=== PATIENT | male | born 1945 | race Caucasian/White ===

== ENCOUNTER 2019-09-09 07:35 | Outpatient (CLI) | payer MEDICARE, SELFPAY ==
[2019-09-09 07:55] LABS: Basophils Absolute Auto 0.1 K/mm3 (0.0-0.1); Basophils Percent Auto 0.9 % (0.2-1.2); Eosinophils Absolute Auto 0.3 K/mm3 (0-0.3); Eosinophils Percent Auto 3.4 % (0-4.4); Hematocrit 50.8 % (42.0-52.0); Hemoglobin 16.5 g/dL (14.0-18.0); Immature Granulocyte Absolute 0.02 K/mm3 (0.00-0.031); Immature Granulocyte Percent A 0.2 % (0-0.5); Lymphocytes Absolute Auto 0.75 K/mm3 (0.9-3.2); Lymphocytes Percent Auto 8.9 % (18.3-44.2); Mean Corpuscular HGB Conc 32.5 g/dl (32-36); Mean Corpuscular Hemoglobin 29.9 pg (26-34); Mean Corpuscular Volume 92.2 fl (80-100); Mean Platelet Volume 10.8 fl (7.4-10.4); Monocytes Absolute Auto 0.8 K/mm3 (0.1-0.6); Monocytes Percent Auto 9.6 % (2.6-8.5); Neutrophils Absolute Auto 6.5 K/mm3 (1.3-6.7); Platelet Count Result 168 k/mm3 (150-375); Red Blood Count 5.51 M/mm3 (4.6-6.20); Red Cell Distribution Width 14.1 % (11.5-14.5); White Blood Count 8.4 K/mm3 (4.5-10.0)
[2019-09-09 08:07] LABS: Hemoglobin A1C 6.1 % (<5.7)
[2019-09-09 08:08] LABS: Alanine Aminotransferase 30 U/L (4-50); Alkaline Phosphatase 62 U/L (38-126); Aspartate Amino Transferase 30 U/L (17-59); Bilirubin,Total 0.5 mg/dL (0.2-1.3); Blood Urea Nitrogen 20 mg/dL (9-20); Carbon Dioxide 27 mmol/L (22-30); Chloride 108 mmol/L (98-107); Cholesterol 105 mg/dL (0-200); Estimated Glomerular Filt Rate > 60; Glucose 103 mg/dL (75-110); HDL Direct 32 mg/dL; Potassium 3.7 mmol/L (3.4-5.0); Sodium 140 mmol/L (137-145); Triglycerides 59 mg/dL (<150)
[2019-09-09 08:19] LABS: LDL Cholesterol Direct 66 mg/dL
[2019-09-09 09:28] LABS: Free T4 Free Thyroxine 1.18 ng/mL (0.78-2.19)
== END 2019-09-09 07:36 | disposition home or self-care (01) ==
PROVIDERS: PCP Family Medicine; Visit Provider Family Medicine
DX: R53.83 Other fatigue (principal); J44.1 Chronic obstructive pulmonary disease with (acute) exacerbation; I10 Essential (primary) hypertension; I21.9 Acute myocardial infarction, unspecified; Z79.899 Other long term (current) drug therapy; Z85.51 Personal history of malignant neoplasm of bladder; Z83.3 Family history of diabetes mellitus
CPT/HCPCS: 36415; 80053; 80061; 82607; 83036; 84439; 84443; 85025

== ENCOUNTER 2019-11-25 10:01 | Outpatient (CLI) | payer MEDICARE, SELFPAY ==
--- NOTE | ~2019-11-25 | XR_ITS ---
EXAMINATION: XR hip BI wo pelvis, XR lumbar spine 2-3V DATE: 11/25/2019 11:42 INDICATION: Low back pain and bilateral hip pain TECHNIQUE: 1. Anteroposterior, lateral and cone-down lateral lumbosacral views of the lumbar spine were obtained . 2. Anteroposterior and frog-leg lateral views of the left hip and anteroposterior and frog-leg latera l views of the right hip were obtained. COMPARISON: CT abdomen and pelvis dated 06/07/2017 FINDINGS: Lumbar spine: 7 mm anterolisthesis L4 on L5 which is increased since the prior study. Associated severe bilateral f acet osteoarthritis at L4-L5. Vertebral body heights are normal. Mild disc height loss at L4-L5. Ther e are multiple tiny calcified nodules at the bilateral lung bases. Bilateral hips: Bone alignment is normal. No fracture or suspected avascular necrosis. Mild bilateral hip osteoarthr itis. Sacrum and bilateral sacroiliac joints are normal. IMPRESSION: 1. Grade 1 anterolisthesis L4 on L5 with mild associated disc height loss and severe bilateral facet osteoarthritis. 2. Mild bilateral hip osteoarthritis. Reviewed, dictated and finalized at location A. IMPRESSION: 1. Grade 1 anterolisthesis L4 on L5 with mild associated disc height loss and s evere bilateral facet osteoarthritis. 2. Mild bilateral hip osteoarthritis.
[2019-11-25 11:03] LABS: Rheumatoid Factor < 8.6 IU/ML (<12)
[2019-11-25 12:02] LABS: Vitamin D 25 Hydroxy 53.7 ng/mL
[2019-11-30 13:58] LABS: Anti Nuclear Antibody Pattern Nuclear, Speckled; Anti Nuclear Antibody Titer 1:40 (Negative)
== END 2019-11-25 10:02 | disposition home or self-care (01) ==
PROVIDERS: Visit Provider Family Medicine
DX: M16.0 Bilateral primary osteoarthritis of hip (principal); E55.9 Vitamin D deficiency, unspecified
CPT/HCPCS: 36415; 72100; 73521; 82306; 86038; 86039; 86430

== ENCOUNTER 2019-11-26 12:51 | Outpatient (CLI) | payer MEDICARE, SELFPAY ==
--- NOTE | 2019-11-26 12:54 | ECG_ITS ---
Measurements Intervals [place] Rate: 63 P: 64 VT: 171 QRS: 3 QRSD: 90 T: 38 QT: 405 QTc: 417 Interpretive Statements SINUS RHYTHM DELAYED PRECORDIAL R/S TRANSITION BORDERLINE ECG Electronically Signed On 11-26-2019 16:05:48 CDT by Simone oCrral D.O.
[2019-11-26 14:00] LABS: Anion Gap 7 mmol/L (8-16); Blood Urea Nitrogen 18 mg/dL (9-20); Calcium 9.2 mg/dL (8.4-10.2); Carbon Dioxide 29 mmol/L (22-30); Chloride 105 mmol/L (98-107); Estimated Glomerular Filt Rate 60; Glucose 113 mg/dL (75-110); Potassium 3.3 mmol/L (3.4-5.0); Sodium 141 mmol/L (137-145)
== END 2019-11-26 12:52 | disposition home or self-care (01) ==
PROVIDERS: Anesthesiology; PCP Nurse Practitioner Family; Visit Provider Urology
DX: I10 Essential (primary) hypertension (principal)
CPT/HCPCS: 36415; 80048; 93005

== ENCOUNTER 2019-12-02 02:56 | Outpatient (CLI) | payer MEDICARE, SELFPAY ==
[2019-12-02 18:37] LABS: SARS-CoV-2 RNA PCR Negative
== END 2019-12-02 02:57 | disposition home or self-care (01) ==
LOC: ANHCOVIDDT 02:56
PROVIDERS: PCP Nurse Practitioner Family; Visit Provider Urology
DX: Z01.812 Encounter for preprocedural laboratory examination (principal); Z20.828 Contact with and (suspected) exposure to other viral communicable diseases
CPT/HCPCS: 87635; C9803; U0003

== ENCOUNTER 2019-12-04 00:48 | Day surgery (SDC) | payer MEDICARE, SELFPAY ==
[2019-11-25 16:08] VITALS: BMI 32.1
--- NOTE | ~2019-12-04 | XR_ITS ---
EXAMINATION: XR retrograde pyelogram LT DATE: 12/04/2019 15:10 INDICATION: Bladder cancer. TECHNIQUE: 82 intraoperative fluoroscopic views of the abdomen and pelvis were obtained. I was not pr esent. Fluoroscopy exposure time was 27 seconds. COMPARISON: CT abdomen and pelvis 06/07/2017 FINDINGS: There are stones in the bladder. The left-sided pyelogram is normal. IMPRESSION: 1. Bladder stones. Reviewed, dictated and finalized at location A. IMPRESSION: 1. Bladder stones.
--- NOTE | 2019-12-04 11:42 | WPDHPUPDATE1 ---
History and Physical Update Update Date/Time: 12/04/19 11:42 History and Physical has been reviewed, including an updated exam of the patient. There are NO changes in the patient's condition. Risks, benefits, and alternatives have been discussed and questions answered. Patient agrees to proceed with procedure.
--- NOTE | 2019-12-04 12:34 | WPDANESEPP ---
Anes - Eval Pre Procedure Procedure: Operation Date: 12/04/19 15:15 Proposed Procedures p Cystoscopy, Bilateral Retrograde Pyelogram - Corky Shoemaker MD s Trans Urethral Resection Bladder Tumor - Corky Shoemaker MD Date/Time: 12/04/19 12:34 Pre Op Diagnosis: Bladder Cancer Patient Data Age: 74 Gender: M Height: 5 ft 7 in Weight: 92.99 kg Allergies Allergy/AdvReac Type Severity Reaction Status Date / Time doxycycline Allergy Unknown Nausea Verified 11/25/19 15:57 levofloxacin Allergy Unknown Hives / Verified 11/25/19 15:57 Red Face Penicillins Allergy Unknown Unknown Verified 11/25/19 15:57 dimethicone [From Dermatix] Allergy Rash Verified 11/25/19 16:00 silicon dioxide Allergy Rash Verified 11/25/19 16:00 [From Dermatix] Home Medications Medication Instructions Recorded Confirmed Type aspirin 81 mg tablet,delayed 81 mg PO DAILY 04/09/19 11/25/19 History release budesonide-formoterol HFA 160 2 puff INHALATION Q12H 04/09/19 11/25/19 History mcg-4.5 mcg/actuation aerosol inhaler fluticasone fur. 100 mcg-umeclid 1 inhalation INHALATION DAILY 04/09/19 11/25/19 History 62.5 mcg-vilant 25 mcg inhalat.powder apixaban 5 mg tablet 5 mg PO BID #60 tablet 07/29/19 11/25/19 Rx albuterol sulfate 1 puff INHALATION PRN PRN 11/25/19 11/25/19 History cyanocobalamin (vitamin B-12) 500 mcg PO DAILY 11/25/19 11/25/19 History levothyroxine 100 mcg PO QAM 11/25/19 11/25/19 History metoprolol tartrate 25 mg PO QAM 11/25/19 11/25/19 History candesartan 32 1 tablet PO DAILY #90 tablet 11/26/19 Rx mg-hydrochlorothiazide 25 mg tablet atorvastatin 20 mg tablet 20 mg PO DAILY #30 tablet 12/03/19 Rx Patient hx anesthesia problems: none Family hx anesthesia problems: none PMFSH Past Medical History Medical History (Updated 12/04/19 @ 12:35 by Gio Spivey CRNA) Adult hypothyroidism CAD in [place] artery COPD (chronic obstructive pulmonary disease) Essential (primary) hypertension History of malignant neoplasm of bladder History of SCC (squamous cell carcinoma) of skin Hyperlipidemia Hypoglycemia Malignant neoplasm of bladder Mixed hyperlipidemia Neuroma of right lower extremity after surgery KARTHIK on CPAP Paroxysmal atrial fibrillation with rapid ventricular response Personal history of nicotine dependence Tobacco abuse Surgical History Surgical History History of bladder surgery Family History Family History Sibling Family history of diabetes mellitus in first degree relative Family history of heart disease in male family member before age 55 Mother Family history of heart disease in male family member before age 55 Father Acute myocardial infarction Social History Social History Smoking packs per day: 1 Smoking cigarettes per day: 20.0 Years smoked: 30 Smoking pack-years: 30.00 Smoking status: Current every day smoker Alcohol intake: current Drinks per week: 21 Alcohol use details: VODKA Living arrangements: with family Spiritual care concerns: No Comments [id number] SINUS RHYTHM DELAYED PRECORDIAL R/S TRANSITION BORDERLINE ECG Exam Day of Procedure 12/04/19 12:34
[2019-12-04] MEDS: LACTATED RINGERS 1,000 ML 30 ML IV CONT (13:27)
[2019-12-04 13:52] VITALS: BP 138/82; PULSE 60; RESP 18; TEMP 36.9; O2SAT 97
--- NOTE | 2019-12-04 14:18 | WPDANESEPPF ---
Anes - Initial Pre Proc Eval Procedure: Operation Date: 12/04/19 15:15 Proposed Procedures p Cystoscopy, Bilateral Retrograde Pyelogram - Corky Shoemaker MD s Trans Urethral Resection Bladder Tumor - Corky Shoemaker MD Date/Time: 12/04/19 14:18 Surgeon: Corky Shoemaker MD Pre Op Diagnosis: Bladder Cancer Patient Data Age: 74 Gender: M Height: 5 ft 7 in Weight: 93 kg Last Vital Signs Temp 36.9 C 12/04/19 13:52 Pulse 60 12/04/19 13:52 Resp 18 12/04/19 13:52 BP 138/82 12/04/19 13:52 Pulse Ox 97 12/04/19 13:52 Allergies Allergy/AdvReac Type Severity Reaction Status Date / Time doxycycline Allergy Unknown Nausea Verified 12/04/19 13:57 levofloxacin Allergy Unknown Hives / Verified 12/04/19 13:57 Red Face Penicillins Allergy Unknown Unknown Verified 12/04/19 13:57 dimethicone [From Dermatix] Allergy Rash Verified 12/04/19 13:57 silicon dioxide Allergy Rash Verified 12/04/19 13:57 [From Dermatix] Home Medications Medication Instructions Recorded Confirmed Type aspirin 81 mg tablet,delayed 81 mg PO DAILY 04/09/19 12/04/19 History release budesonide-formoterol HFA 160 2 puff INHALATION Q12H 04/09/19 12/04/19 History mcg-4.5 mcg/actuation aerosol inhaler fluticasone fur. 100 mcg-umeclid 1 inhalation INHALATION DAILY 04/09/19 12/04/19 History 62.5 mcg-vilant 25 mcg inhalat.powder apixaban 5 mg tablet 5 mg PO BID #60 tablet 07/29/19 12/04/19 Rx albuterol sulfate 1 puff INHALATION PRN PRN 11/25/19 12/04/19 History cyanocobalamin (vitamin B-12) 500 mcg PO DAILY 11/25/19 12/04/19 History levothyroxine 100 mcg PO QAM 11/25/19 12/04/19 History metoprolol tartrate 25 mg PO QAM 11/25/19 12/04/19 History candesartan 32 1 tablet PO DAILY #90 tablet 08/26/20 09/03/20 Rx mg-hydrochlorothiazide 25 mg tablet atorvastatin 20 mg tablet 20 mg PO DAILY #30 tablet 12/03/19 12/04/19 Rx Patient hx anesthesia problems: none Family hx anesthesia problems: none PMFSH Past Medical History Medical History Adult hypothyroidism CAD in [place] artery COPD (chronic obstructive pulmonary disease) Essential (primary) hypertension History of malignant neoplasm of bladder History of SCC (squamous cell carcinoma) of skin Hyperlipidemia Hypoglycemia Malignant neoplasm of bladder Mixed hyperlipidemia Neuroma of right lower extremity after surgery KARTHIK on CPAP Paroxysmal atrial fibrillation with rapid ventricular response Personal history of nicotine dependence Tobacco abuse Surgical History Surgical History History of bladder surgery Family History Family History Sibling Family history of diabetes mellitus in first degree relative Family history of heart disease in male family member before age 55 Mother Family history of heart disease in male family member before age 55 Father Acute myocardial infarction Social History Social History Smoking packs per day: 1 Smoking cigarettes per day: 20.0 Years smoked: 30 Smoking pack-years: 30.00 Smoking status: Current every day smoker Alcohol intake: current Drinks per week: 21 Alcohol use details: VODKA Living arrangements: with family Spiritual care concerns: No Anes - Eval Final PreProcedure Day of Procedure 12/04/19 14:18 Patient weight: obese Heart: regular rate and rhythm Lungs: decreased breath sounds Airway: Mallampati scale class II Neurological: alert and oriented Last oral intake: >/= 8 hours ASA classification: III Emergent: no Anesthetic plan: proceed Anesthesia type and monitoring: general LMA and standard monitoring Informed Consent: The patient's anesthetic plan and its attendant risks and benefits were discussed with the patient/family/POA. Questions we
[2019-12-04] MEDS: ceFAZolin 2 GM/D5W 50 ML 2 GM/50 ML BAG IVPB (14:48)
[2019-12-04] MEDS: LIDOCAINE HCL 2% GEL UROJET 10 ML PKG MUCOUS MEM (14:56)
[2019-12-04 15:26] VITALS: BP 129/98; PULSE 64; RESP 10; TEMP 37.4; O2SAT 99
[2019-12-04 15:40] VITALS: BP 137/78; PULSE 63; RESP 17; TEMP 36.3; O2SAT 96
[2019-12-04 15:53] VITALS: BP 158/99; PULSE 59
--- NOTE | 2019-12-04 15:58 | PM.PROC ---
Procedure Note - Detailed Date of procedure: 12/04/19 Pre-op diagnosis: Bladder Cancer Post-op diagnosis: other (Bladder stones) Procedure performed: Cystoscopy, extraction bladder stones, bladder cautery Description of procedure: Patient is brought to the operative suite where he has prepped and draped in routine sterile fashion while in a dorsal lithotomy position after the uneventful induction of a general LMA anesthetic. Twenty-one F rigid cystoscope was placed in his bladder. 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 Bladder is trabeculated. using an 8 F bulb tip catheter a obtained a left retrograde pyelogram. This showed some J hooking of the ureter without other points of obstruction filling defects or other identifiable pathology. I can only obtain a partial right pyelograms because of the J position of his right ureter. We then turned our attention to extraction of foreign bodies from the bladder. What had appeared to be possible neoplasms with calcifications on the surface stones out to be true bladder stones without underlying soft tissue. Using a 24 F resectoscope was able to evacuate these without the need for laser lithotripsy. Bladder was carefully inspected and found show no evidence of anastasiya neoplasm. Points to the scopes were removed. Eighteen F urethral catheter will be left indwelling short term. He can follow-up in 3 months.. Anesthesia: GLMA Surgeon: Corky Shoemaker MD Estimated blood loss (mL): 0 Drains: Yes (18F Guerrero) Packing: No Pathology: yes Complications: No immediate complications Condition: stable Disposition: PACU
[2019-12-04 16:20] VITALS: BP 147/81; PULSE 56
--- NOTE | 2019-12-04 16:24 | SUR.PHASEII ---
Patient did fine with Ancef in Pre-op so Dr. Shoemaker is okay prescribing patient Cephalexin to go home with.
[2019-12-04 16:45] VITALS: BP 152/85; PULSE 59
== END 2019-12-04 16:56 | disposition home or self-care (01) ==
PROVIDERS: PCP Nurse Practitioner Family; Visit Provider Urology
PROC: (CPT 52352; principal; 2019-12-04 15:15)
DX: N21.0 Calculus in bladder (principal); Z85.51 Personal history of malignant neoplasm of bladder; I25.10 Atherosclerotic heart disease of native coronary artery without angina pectoris; I10 Essential (primary) hypertension; E03.9 Hypothyroidism, unspecified; E78.5 Hyperlipidemia, unspecified; G47.33 Obstructive sleep apnea (adult) (pediatric); I48.0 Paroxysmal atrial fibrillation; Z79.01 Long term (current) use of anticoagulants; Z79.82 Long term (current) use of aspirin; F17.210 Nicotine dependence, cigarettes, uncomplicated
CPT/HCPCS: 52310; 74420; 82365; 88300; A9270; C1758; C1769; C1887; J0690; J2405; J2704; J3010; J7120; Q9966

== ENCOUNTER 2019-12-07 06:00 | Emergency (ER) | payer MEDICARE, SELFPAY ==
[2019-12-07 06:06] VITALS: BP 155/112; PULSE 82; RESP 20; TEMP 36.8; O2SAT 100
[2019-12-07 06:40] LABS: Add Urine Microscopic? YES; Appearance Urine Cloudy (Clear); Bacteria Urine Trace /hpf; Bilirubin Urine Negative (Negative); Blood Urine 3+ (Negative); Color Urine Yellow (Yellow); Glucose Urine UA Negative (Negative); Ketones Urine Trace mg/dL (Negative); Leukocyte Esterase Ur 2+ LEU/UL (Negative); Mucus Urine Rare /lpf; Nitrate Urine Negative (Negative); Protein Urine 2+ mg/dL (Negative); RBC Urine >75 /hpf (0-2); Specific Grav Ur 1.021 (1.001-1.035); Urobilinogen Urine Negative mg/dL (<2.0); WBC Urine >75 /hpf
--- NOTE | 2019-12-07 07:07 | ED.MALEGU ---
HPI - Male Genitourinary General Chief complaint: Urogenital-Male Stated complaint: urinary retention Time Seen by Provider: 12/07/19 07:04 Source: patient and family Mode of arrival: EMS Limitations: no limitations History of Present Illness HPI Narrative: Patient is a 74-year-old male who presents for evaluation of urinary retention following bladder tumor removal/cystoscopy with Dr. Uma quinn on December 03. Patient states he has had dribbling urination since surgery. He did not have a Guerrero placed initially. This morning, patient became acutely uncomfortable, felt he was unable to empty his bladder thus came to the emergency department. Patient denies any fever, chills, nausea or vomiting. He reports hematuria directly after the surgery which has mostly resolved. Patient denies any back pain. Related Data Home Medications Medication Instructions Recorded Confirmed aspirin 81 mg tablet,delayed 81 mg PO DAILY 04/09/19 12/04/19 release budesonide-formoterol HFA 160 2 puff INHALATION Q12H 04/09/19 12/04/19 mcg-4.5 mcg/actuation aerosol inhaler fluticasone fur. 100 mcg-umeclid 1 inhalation INHALATION DAILY 04/09/19 12/04/19 62.5 mcg-vilant 25 mcg inhalat.powder albuterol sulfate 1 puff INHALATION PRN PRN 11/25/19 12/04/19 cyanocobalamin (vitamin B-12) 500 mcg PO DAILY 11/25/19 12/04/19 levothyroxine 100 mcg PO QAM 11/25/19 12/04/19 metoprolol tartrate 25 mg PO QAM 11/25/19 12/04/19 Allergies Allergy/AdvReac Type Severity Reaction Status Date / Time doxycycline Allergy Unknown Nausea Verified 12/07/19 06:12 levofloxacin Allergy Unknown Hives / Verified 12/07/19 06:12 Red Face Penicillins Allergy Unknown Unknown Verified 12/07/19 06:12 dimethicone [From Dermatix] Allergy Rash Verified 12/07/19 06:12 silicon dioxide Allergy Rash Verified 12/07/19 06:12 [From Dermatix] Review of Systems Review of Systems: Narrative: CONSTITUTIONAL: Denies fever CARDIOVASCULAR: Denies chest pain RESPIRATORY: Denies cough or dyspnea. GASTROINTESTINAL: Denies abdominal pain, reports urinary retention SKIN: Denies rash MUSCULOSKELETAL: Denies back pain NEUROLOGIC: Denies headache [facility] Past Medical History Medical History Adult hypothyroidism CAD in [place] artery COPD (chronic obstructive pulmonary disease) Essential (primary) hypertension History of malignant neoplasm of bladder History of SCC (squamous cell carcinoma) of skin Hyperlipidemia Hypoglycemia Malignant neoplasm of bladder Mixed hyperlipidemia Neuroma of right lower extremity after surgery KARTHIK on CPAP Paroxysmal atrial fibrillation with rapid ventricular response Personal history of nicotine dependence Tobacco abuse Surgical History Surgical History History of bladder surgery Family History Family History Sibling Family history of diabetes mellitus in first degree relative Family history of heart disease in male family member before age 55 Mother Family history of heart disease in male family member before age 55 Father Acute myocardial infarction Social History Social History Smoking packs per day: 1 Smoking cigarettes per day: 20.0 Years smoked: 30 Smoking pack-years: 30.00 Smoking status: Current every day smoker Alcohol intake: current Drinks per week: 21 Spiritual care concerns: No Exam Narrative: Exam Narrative: GENERAL: Awake, alert, conversant HEAD: Normocephalic, atraumatic. EYES: PERRLA and EOMI. ENT: Nares clear, no rhinorrhea or epistaxis. Mucous membranes moist. NECK: Supple. CHEST: No respiratory distress, breathing even and non labored HEART: Regular rate, sinus rhythm ABDOMEN:Non distended, non tender EXTREMITIES: Normal range of motion. No edema. SKIN: Warm, dry, no rash.
--- NOTE | 2019-12-07 08:20 | PC.NURSE ---
[address] and instructions given to empty and change back and forth to large bag pt verbalized understanding
[2019-12-07 08:25] VITALS: BP 112/61; PULSE 72; RESP 20; O2SAT 96
== END 2019-12-07 08:26 | disposition home or self-care (01) ==
PROVIDERS: Emergency Medicine; Emergency Provider Emergency Medicine; PCP Nurse Practitioner Family
DX: N39.0 Urinary tract infection, site not specified (principal); E03.9 Hypothyroidism, unspecified; I25.10 Atherosclerotic heart disease of native coronary artery without angina pectoris; I48.0 Paroxysmal atrial fibrillation; J44.9 Chronic obstructive pulmonary disease, unspecified; I10 Essential (primary) hypertension; Z85.828 Personal history of other malignant neoplasm of skin; E78.2 Mixed hyperlipidemia; G47.33 Obstructive sleep apnea (adult) (pediatric); Z85.51 Personal history of malignant neoplasm of bladder; F17.210 Nicotine dependence, cigarettes, uncomplicated; Z79.82 Long term (current) use of aspirin
CPT/HCPCS: 51702; 81001; 87086; 99283

== ENCOUNTER → 2020-02-04 11:59 | Outpatient (CLI) | payer MEDICARE, SELFPAY ==
--- NOTE | ~2020-02-04 | XR_ITS ---
EXAMINATION: XR knee RT min 4V DATE: 02/04/2020 14:51 INDICATION: Right knee pain. TECHNIQUE: 4 views of right knee were obtained. COMPARISON: Right tibia and fibula radiographs 07/01/12, right knee radiographs 07/01/12 FINDINGS: There is lateral subluxation of patella. No acute fracture. There is an old healed fracture deformity of proximal fibular diaphysis. There is an antegrade intramedullary sivan with proximal inte rlocking screw in tibia. There is lucency around the intramedullary sivan measuring up to 9 mm medially , which is unchanged from 06/25/2012. There is mild tricompartmental osteoarthritis. No knee joint eff usion. IMPRESSION: 1. Mild right knee osteoarthritis. 2. Internal fixation of tibia with lucency around the intramedullary sivan that is unchanged from 013. This finding may be the normal postoperative appearance or secondary to chronic loosening. Reviewed, dictated and finalized at location A. TER IMPRESSION: 1. Mild right knee osteoarthritis. 2. Internal fixation of tibia with lucency around the intramedullary sivan that i s unchanged from 07/01/2012. This finding may be the normal postoperative appeara nce or secondary to chronic loosening.
--- NOTE | ~2020-02-04 | XR_ITS ---
EXAMINATION: XR knee LT min 4V DATE: 02/04/2020 14:51 INDICATION: Left knee pain. TECHNIQUE: 4 views of left knee were obtained. COMPARISON: None. FINDINGS: Bone alignment is normal. No fracture. There is mild tricompartmental osteoarthritis. No kn ee joint effusion. There are small loose bodies in the knee joint posteriorly. There is anterior knee soft tissue swelling. IMPRESSION: 1. Mild left knee osteoarthritis. 2. Knee joint loose bodies. Reviewed, dictated and finalized at location A. LOPMENT ASSISTANT
== END ==
PROVIDERS: PCP Nurse Practitioner Family; Visit Provider Nurse Practitioner Family
DX: M17.0 Bilateral primary osteoarthritis of knee (principal); M23.42 Loose body in knee, left knee
CPT/HCPCS: 73564

== ENCOUNTER → 2020-06-07 00:14 | Outpatient (CLI) | payer MEDICARE, SELFPAY ==
[2020-06-07 18:03] LABS: SARS-CoV-2 RNA PCR Negative
== END ==
PROVIDERS: PCP Nurse Practitioner Family; Visit Provider Urology
DX: Z01.812 Encounter for preprocedural laboratory examination (principal); Z20.822 Contact with and (suspected) exposure to COVID-19
CPT/HCPCS: C9803; U0003; U0005

== ENCOUNTER 2020-06-07 08:17 | Outpatient (CLI) | payer MEDICARE, SELFPAY ==
[2020-06-07 09:06] LABS: Anion Gap 5 mmol/L (8-16); Blood Urea Nitrogen 15 mg/dL (9-20); Calcium 8.9 mg/dL (8.4-10.2); Carbon Dioxide 32 mmol/L (22-30); Chloride 104 mmol/L (98-107); Estimated Glomerular Filt Rate > 60; Glucose 104 mg/dL (75-110); Potassium 3.3 mmol/L (3.4-5.0); Sodium 141 mmol/L (137-145)
== END 2020-06-07 08:18 | disposition home or self-care (01) ==
LOC: ANHSURGERY 08:21
PROVIDERS: Anesthesiology; PCP Nurse Practitioner Family; Visit Provider Urology
DX: Z01.818 Encounter for other preprocedural examination (principal); I10 Essential (primary) hypertension
CPT/HCPCS: 36415; 80048; C9803; U0003; U0005

== ENCOUNTER 2020-06-10 01:10 | Day surgery (SDC) | payer MEDICARE, SELFPAY ==
[2020-05-31 09:01] VITALS: BMI 31.9
--- NOTE | 2020-06-04 07:08 | PM.HPGS ---
History of Present Illness History of Present Illness Consent: Risks, benefits, and alternatives have been discussed and questions answered. Patient agrees to proceed with procedure. Chief complaint: Bladder Cancer Narrative: Fahad Meier is a 74 year old male with a long history of recurrent bladder tumors. Recent surveillance cystoscopy showed a recurrence papillary 2 cm neoplasm in the right lateral bladder wall and a 1 cm neoplasm in the left lateral bladder wall. Review of Systems Cardiovascular: Cardiovascular: Denies chest pain, Denies lightheadedness, Denies palpitations and Denies dyspnea Respiratory: Respiratory: Denies dyspnea Gastrointestinal: Gastrointestinal: Denies diarrhea, Denies nausea and Denies vomiting Genitourinary: Genitourinary: Denies hematuria and Denies dysuria Endocrine: Endocrine: Denies palpitations [facility] Past Medical History Medical History Adult hypothyroidism CAD in [place] artery COPD (chronic obstructive pulmonary disease) Essential (primary) hypertension History of malignant neoplasm of bladder History of SCC (squamous cell carcinoma) of skin Hyperlipidemia Hypoglycemia Malignant neoplasm of bladder Mixed hyperlipidemia Neuroma of right lower extremity after surgery KARTHIK on CPAP Paroxysmal atrial fibrillation with rapid ventricular response Personal history of nicotine dependence Tobacco abuse Surgical History Surgical History History of bladder surgery Family History Family History Sibling Family history of diabetes mellitus in first degree relative Family history of heart disease in male family member before age 55 Mother Family history of heart disease in male family member before age 55 Father Acute myocardial infarction Social History Social History Smoking packs per day: 1 Smoking cigarettes per day: 20.0 Years smoked: 30 Smoking pack-years: 30.00 Smoking status: Current every day smoker Tobacco type: cigarettes Alcohol intake: current Drinks per week: 21 Spiritual care concerns: No Meds Home Medications and Allergies Home Medications Medication Instructions Recorded Confirmed Type aspirin 81 mg tablet,delayed 81 mg PO DAILY 04/09/19 05/31/20 History release budesonide-formoterol HFA 160 2 puff INHALATION PRN PRN 04/09/19 05/31/20 History mcg-4.5 mcg/actuation aerosol inhaler fluticasone fur. 100 mcg-umeclid 1 inhalation INHALATION DAILY 04/09/19 05/31/20 History 62.5 mcg-vilant 25 mcg inhalat.powder cyanocobalamin (vitamin B-12) 500 mcg PO DAILY 11/25/19 05/31/20 History levothyroxine 100 mcg PO QAM 11/25/19 05/31/20 History candesartan 32 1 tablet PO DAILY #90 tablet 11/26/19 05/31/20 Rx mg-hydrochlorothiazide 25 mg tablet hydrocodone-acetaminophen 1 - 2 tablet PO Q6H PRN #20 tablet 12/04/19 05/31/20 Rx atorvastatin 20 mg tablet See Rx Instructions .ROUTE 05/23/20 05/31/20 Rx .COMPLEX #30 tablet albuterol sulfate 2 puff INHALATION PRN PRN 05/31/20 05/31/20 History metoprolol tartrate 50 mg PO BID 05/31/20 05/31/20 History Allergies Allergy/AdvReac Type Severity Reaction Status Date / Time doxycycline Allergy Unknown Nausea Verified 05/31/20 08:38 levofloxacin Allergy Unknown Hives / Verified 05/31/20 08:38 Red Face Penicillins Allergy Unknown Unknown Verified 05/31/20 08:38 dimethicone [From Dermatix] Allergy Rash Verified 05/31/20 08:38 silicon dioxide Allergy Rash Verified 05/31/20 08:38 [From Dermatix] Exam Const: General: no acute distress Resp: Effort & Inspection: normal respiratory effort GI: Inspection: non-distended GI Palp: No abdominal tenderness and No Guarding due to palpation present (GI) Auscultation: normal bowel sounds Assessment and Plan As
[2020-06-10] VITALS (10 sets, daily range): BP systolic 132–152; BP diastolic 63–98; PULSE 55–68; RESP 12–16; TEMP 36.3–36.6; O2SAT 96–100
[2020-06-10] MEDS: LACTATED RINGERS 1,000 ML 30 ML IV CONT ×2 (11:32→15:56)
--- NOTE | 2020-06-10 11:38 | WPDHPUPDATE1 ---
History and Physical Update Update Date/Time: 06/10/20 11:38 History and Physical has been reviewed, including an updated exam of the patient. There are NO changes in the patient's condition. Risks, benefits, and alternatives have been discussed and questions answered. Patient agrees to proceed with procedure.
--- NOTE | 2020-06-10 12:31 | WPDANESEPPF ---
Anes - Initial Pre Proc Eval Procedure: Operation Date: 06/10/20 13:00 Proposed Procedures p Trans Urethral Resection Bladder Tumor With Mitomycin C Installation - Corky Shoemaker MD Date/Time: 06/10/20 12:31 Surgeon: Corky Shoemaker MD Pre Op Diagnosis: Bladder Cancer Patient Data Age: 74 Gender: M Height: 5 ft 7 in Weight: 93.6 kg Last Vital Signs Temp 98 F 06/10/20 11:33 Pulse 62 06/10/20 11:33 Resp 16 06/10/20 11:33 BP 133/63 06/10/20 11:33 Pulse Ox 99 06/10/20 11:33 Allergies Allergy/AdvReac Type Severity Reaction Status Date / Time levofloxacin Allergy Mild Hives / Verified 06/10/20 10:52 Red Face doxycycline Allergy Unknown Nausea Verified 06/10/20 10:52 Penicillins Allergy Unknown Unknown Verified 06/10/20 10:52 dimethicone [From Dermatix] Allergy Rash Verified 06/10/20 10:52 silicon dioxide Allergy Rash Verified 06/10/20 10:52 [From Dermatix] Home Medications Medication Instructions Recorded Confirmed Type aspirin 81 mg tablet,delayed 81 mg PO DAILY 04/09/19 06/10/20 History release budesonide-formoterol HFA 160 2 puff INHALATION PRN PRN 04/09/19 06/10/20 History mcg-4.5 mcg/actuation aerosol inhaler fluticasone fur. 100 mcg-umeclid 1 inhalation INHALATION DAILY 04/09/19 06/10/20 History 62.5 mcg-vilant 25 mcg inhalat.powder cyanocobalamin (vitamin B-12) 500 mcg PO DAILY 11/25/19 06/10/20 History levothyroxine 100 mcg PO QAM 11/25/19 06/10/20 History candesartan 32 1 tablet PO DAILY #90 tablet 11/26/19 06/10/20 Rx mg-hydrochlorothiazide 25 mg tablet hydrocodone-acetaminophen 1 - 2 tablet PO Q6H PRN #20 tablet 12/04/19 06/10/20 Rx atorvastatin 20 mg tablet See Rx Instructions .ROUTE 05/23/20 06/10/20 Rx .COMPLEX #30 tablet albuterol sulfate 2 puff INHALATION PRN PRN 05/31/20 06/10/20 History metoprolol tartrate 50 mg PO BID 05/31/20 06/10/20 History Patient hx anesthesia problems: none Family hx anesthesia problems: none PMFSH Past Medical History Medical History Adult hypothyroidism CAD in [place] artery COPD (chronic obstructive pulmonary disease) Essential (primary) hypertension History of malignant neoplasm of bladder History of SCC (squamous cell carcinoma) of skin Hyperlipidemia Hypoglycemia Malignant neoplasm of bladder Mixed hyperlipidemia Neuroma of right lower extremity after surgery KARTHIK on CPAP Paroxysmal atrial fibrillation with rapid ventricular response Personal history of nicotine dependence Tobacco abuse Surgical History Surgical History History of bladder surgery Family History Family History Sibling Family history of diabetes mellitus in first degree relative Family history of heart disease in male family member before age 55 Mother Family history of heart disease in male family member before age 55 Father Acute myocardial infarction Social History Social History Smoking packs per day: 1 Smoking cigarettes per day: 20.0 Years smoked: 30 Smoking pack-years: 30.00 Smoking status: Current every day smoker Tobacco type: cigarettes Alcohol intake: current Drinks per week: 21 Alcohol use details: VODKA Living arrangements: with family Spiritual care concerns: No Anes - Eval Final PreProcedure Day of Procedure 06/10/20 12:31 Patient weight: obese Heart: regular rate and rhythm Lungs: clear to auscultation Airway: Mallampati scale class III Neurological: alert and oriented Last oral intake: >/= 8 hours ASA classification: III Emergent: no Anesthetic plan: proceed Anesthesia type and monitoring: general LMA and standard monitoring Informed Consent: The patient's anesthetic plan and its attendant risks and benefits were discussed with the patient/fa
[2020-06-10] MEDS: ceFAZolin 2 GM/D5W 50 ML 2 GM/50 ML BAG IVPB (13:33)
--- NOTE | 2020-06-10 14:04 | PM.PROC ---
Procedure Note - Detailed Date of procedure: 06/10/20 Pre-op diagnosis: Bladder Cancer Post-op diagnosis: same Procedure performed: TURBT (small 1.5-2cm) Description of procedure: The patient was brought to the operative suite where he is prepped and draped in a routine sterile fashion while in the dorsal lithotomy position. This is done after the uneventful administration of systemic sedation. 2% Xylocaine jelly is introduced intraurethrally and allowed to stand for an appropriate period of time. A 24F resectoscope sheath was placed in the bladder and the bladder is circumferentially inspected carefully. 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 Each of these measures 1cm. These areas are resected in its entirety with an attempt made to include detrusor muscle for pathological evaluation of invasion. The base and periphery of this resected side is cauterized with a loop electrode. The bladder is emptied and the resectoscope was removed. The patient is taken to the recovery room having tolerated this procedure well. Anesthesia: GLMA Surgeon: Corky Shoemaker MD Estimated blood loss (mL): 0 Drains: Yes (16F Guerrero) Packing: No Pathology: yes Complications: No immediate complications Condition: stable Disposition: PACU
--- NOTE | 2020-06-10 14:06 | PM.PROC ---
Procedure Note - Detailed Date of procedure: 06/10/20 Pre-op diagnosis: Bladder Cancer Post-op diagnosis: same Procedure performed: Mitomycin-C instillation in bladder Description of procedure: With the patient in the supine position, a 16F Guerrero catheter is placed using sterile technique. Using a protective facemask, gown and double layer of gloves Mitomycin-C 40mm in 50cc saline is administered through the catheter/into the bladder. The catheter is then plugged. Patient was instructed to lie supine x20min, then to roll both the left and right x20 min. each. Total dwell time will be 60 min., after which the bladder will be drained and catheter removed. Anesthesia: none Surgeon: Corky Shoemaker MD Estimated blood loss (mL): 0 Drains: No Packing: No Pathology: none sent Complications: No immediate complications Condition: stable Disposition: PACU
--- NOTE | 2020-06-10 14:25 | SUR.PHASEI ---
1425 patient is on his back.
--- NOTE | 2020-06-10 15:02 | SUR.PHASEI ---
1445: Patient on left side.
--- NOTE | 2020-06-10 15:09 | SUR.PHASEI ---
1505: patient turned to right side.
--- NOTE | 2020-06-10 17:02 | SUR.PHASEII ---
Mitomycin was instilled in PACU by Dr. Shoemaker about 1425. Patient turned on each side and back for 20 minutes each. Catheter was unclamped and drained. RN instilled 150cc of NS and then d/c catheter per Dr. Shoemaker. Patient then came to outpatient and urinated in the urinal.
== END 2020-06-10 16:57 | disposition home or self-care (01) ==
PROVIDERS: PCP Nurse Practitioner Family; Visit Provider Urology
PROC: 0TBB8ZZ Excision of Bladder, Via Natural or Artificial Opening Endoscopic (ICD-10-PCS; CPT 52234; principal; 2020-06-10 13:00)
DX: C67.2 Malignant neoplasm of lateral wall of bladder (principal); I25.10 Atherosclerotic heart disease of native coronary artery without angina pectoris; I10 Essential (primary) hypertension; I48.0 Paroxysmal atrial fibrillation; J44.9 Chronic obstructive pulmonary disease, unspecified; E03.9 Hypothyroidism, unspecified; E78.2 Mixed hyperlipidemia; G47.33 Obstructive sleep apnea (adult) (pediatric); Z79.51 Long term (current) use of inhaled steroids; Z79.82 Long term (current) use of aspirin; F17.210 Nicotine dependence, cigarettes, uncomplicated; E66.9 Obesity, unspecified; Z68.32 Body mass index [BMI] 32.0-32.9, adult
CPT/HCPCS: 52234; 51720; 88305; 88307; A9270; J0690; J1100; J2405; J2704; J3010; J7120; J9280

== ENCOUNTER → 2020-06-29 09:39 | Outpatient (REF) | payer MEDICARE, SELFPAY | LOC: ANHLAB 09:39 | PROVIDERS: PCP Nurse Practitioner Family; Visit Provider Nurse Practitioner | DX: L57.0 Actinic keratosis (principal) | CPT/HCPCS: 88305 ==

== ENCOUNTER → 2021-06-14 09:48 | Outpatient (REF) | payer MEDICARE, SELFPAY | LOC: ANHLAB 09:48 | PROVIDERS: PCP Nurse Practitioner Family; Visit Provider Nurse Practitioner | DX: C44.622 Squamous cell carcinoma of skin of right upper limb, including shoulder (principal); L57.0 Actinic keratosis | CPT/HCPCS: 88305 ==

== ENCOUNTER → 2021-07-12 14:50 | Outpatient (REF) | payer MEDICARE, SELFPAY | LOC: ANHLAB 14:50 | PROVIDERS: PCP Nurse Practitioner Family; Visit Provider Nurse Practitioner | DX: L57.8 Other skin changes due to chronic exposure to nonionizing radiation (principal) | CPT/HCPCS: 88305 ==

== ENCOUNTER → 2021-12-17 11:08 | Outpatient (CLI) | payer MEDICARE, SELFPAY ==
--- NOTE | ~2021-12-17 | MR_ITS ---
EXAMINATION: MR lumbar spine wo con DATE: 12/17/2021 12:22 INDICATION: Low back pain. TECHNIQUE: Magnetic resonance imaging (MRI) of the lumbar spine was performed without intravenous con trast. Sequences included sagittal T2-weighted FSE, sagittal T2-weighted FS FSE, sagittal T1-weighted FSE, and axial T2-weighted FSE. COMPARISON: Lumbar spine radiograph 11/25/2019 FINDINGS: There is 4 degrees levocurvature of lumbar spine. There is 5 mm anterolisthesis of L4 on L5 . There is mild chronic anterior wedging of T12 and L1 vertebral bodies. There is mildly decreased di sc height at L2-L3, L3-L4, and L4-L5 and moderately decreased disc height at L5-S1. The distal spinal cord signal intensity is normal. The conus medullaris is at L1. There are cysts in the kidneys measu ring up to 4.6 cm on the left. The following disc levels are specifically discussed: L1-L2: The disc does not extend beyond the endplate margin. There is mild bilateral facet joint osteo arthritis. There is no neural foraminal stenosis. There is no central canal stenosis. L2-L3: The disc is bulging. There is mild bilateral facet joint osteoarthritis. There is mild bilater al neural foraminal stenosis. There is mild central canal stenosis. L3-L4: The disc is bulging. There is mild right and severe left facet joint osteoarthritis. There is mild bilateral neural foraminal stenosis. There is mild central canal stenosis. L4-L5: The disc is bulging with superimposed right central extrusion. There is severe bilateral facet joint osteoarthritis. There is moderate bilateral neural foraminal stenosis. There is moderate centr al canal stenosis. L5-S1: The disc is bulging with superimposed left subarticular zone extrusion with mass effect on lef t S1 nerve root in left lateral recess There is mild bilateral facet joint osteoarthritis. There is m ild bilateral neural foraminal stenosis. There is mild central canal stenosis. IMPRESSION: 1. Moderate lumbar spondylosis. Reviewed, dictated and finalized at location A.
== END ==
PROVIDERS: PCP Family Medicine; Visit Provider Nurse Practitioner Family
DX: M47.26 Other spondylosis with radiculopathy, lumbar region (principal)
CPT/HCPCS: 72148

== ENCOUNTER 2022-01-05 13:00 | Outpatient (NON) | payer MEDICARE, SELFPAY | END 2022-01-05 13:01 | disposition home or self-care (01) | LOC: ANHLAB 01-06 08:20 | PROVIDERS: PCP Family Medicine; Visit Provider Nurse Practitioner | DX: D49.2 Neoplasm of unspecified behavior of bone, soft tissue, and skin (principal); L57.0 Actinic keratosis | CPT/HCPCS: 88305 ==

== ENCOUNTER 2022-01-16 07:00 | Outpatient (NON) | payer MEDICARE, SELFPAY | END 2022-01-16 07:01 | disposition home or self-care (01) | LOC: ANHLAB 01-23 16:24 | PROVIDERS: PCP Family Medicine; Referring Provider Nurse Practitioner; Visit Provider Nurse Practitioner | DX: C44.92 Squamous cell carcinoma of skin, unspecified (principal) | CPT/HCPCS: 88305; 88331 ==

== ENCOUNTER 2023-03-19 07:00 | Outpatient (NON) | payer MEDICARE, SELFPAY | END 2023-03-19 07:01 | disposition home or self-care (01) | LOC: ANHLAB 03-21 11:47 | PROVIDERS: PCP Family Medicine; Visit Provider Nurse Practitioner | DX: L82.0 Inflamed seborrheic keratosis (principal); L81.4 Other melanin hyperpigmentation; L57.8 Other skin changes due to chronic exposure to nonionizing radiation; D48.5 Neoplasm of uncertain behavior of skin | CPT/HCPCS: 88305 ==

== ENCOUNTER 2023-03-21 13:24 | Outpatient (CLI) | payer MEDICARE, SELFPAY ==
--- NOTE | 2023-03-21 13:45 | ECG_ITS ---
Measurements Intervals [place] Rate: 82 P: 78 WA: 170 QRS: 15 QRSD: 90 T: 53 QT: 364 QTc: 427 Interpretive Statements SINUS RHYTHM BASELINE ARTIFACT LOW-VOLTAGE QRS IN LIMB LEADS BORDERLINE ECG COMPARED TO ECG 11/26/2019 13:44:36 NO SIGNIFICANT CHANGES Electronically Signed On 03-21-2023 16:05:15 [employer] by Kashif Curran M.D.
[2023-03-21 14:01] LABS: Anion Gap 7 mmol/L (8-16); Blood Urea Nitrogen 28 mg/dL (9-20); Calcium 9.2 mg/dL (8.4-10.2); Carbon Dioxide 29 mmol/L (22-30); Chloride 105 mmol/L (98-107); Estimated Glomerular Filt Rate 59; Glucose 130 mg/dL (65-110); Potassium 3.5 mmol/L (3.4-5.0); Sodium 141 mmol/L (137-145)
== END 2023-03-21 13:25 | disposition home or self-care (01) ==
PROVIDERS: Anesthesiology; PCP Family Medicine; Visit Provider Urology
DX: Z01.818 Encounter for other preprocedural examination (principal); I10 Essential (primary) hypertension; R93.1 Abnormal findings on diagnostic imaging of heart and coronary circulation; Z79.899 Other long term (current) drug therapy
CPT/HCPCS: 36415; 80048; 93005

== ENCOUNTER 2023-03-29 00:30 | Day surgery (SDC) | payer MEDICARE, SELFPAY ==
[2023-03-20 15:08] VITALS: BMI 30.4
--- NOTE | 2023-03-20 15:15 | PC.NURSE ---
PRE-OP INSTRUCTIONS, PLEASE READ CAREFULLY Report to the Outpatient Waiting Room, entrance under the green pavilion located off [facility], at time _0600_ on date _03/29/23_. Planned Procedure Time: _0730_. Time changes happen often and if your time is changed the preop area will call you the afternoon before. - You and your visitor will be asked to self-screen and do not enter if you have any COVID symptoms. - A mask is optional within the hospital at this time. Patients may have clear liquids (water, carbonated beverages, clear teas, apple juice) until 3 hours prior to surgery (0430 AM) with a maximum of 20 ounces. - No food from midnight until time of surgery Take the following medications with a SIP of water the morning of surgery: _LEVOTHYROXINE, METOPROLOL, TRELEGY INHALER, & ALBUTEROL INHALER IF NEEDED__ DO NOT STOP ANY OF YOUR OTHER PRESCRIPTION MEDICATIONS PRIOR TO SURGERY ?EXCEPT THE FOLLOWING Medications to discontinue - _ASPIRIN & ELIQUIS PER DR. YOO'S INSTRUCTIONS, Date to take last dose_ CALL OFFICE FOR INSTRUCTIONS,_ Please no make-up, nail hebrew, hairspray, perfume, deodorant, or body powder the day of surgery. No jewelry (including any body piercings) or valuables the day of surgery, leave them at home. Please take a shower or bath the night before, or the morning of, surgery with an antibacterial soap. Wear comfortable, loose fitting clothing. - Jewelry must be removed prior to entering the operating room. Rings and piercings that are not removed may be cut off. - The hospital will not accept responsibility for valuables. - Please leave all valuables, including medications, at home the day of surgery. If you are going home after surgery, a licensed personal driver must drive you home. - NO public transportation without another adult if you receive anesthesia. - We recommend that an adult stay with you for 24 hours following discharge. - We also recommend that you do not drive, make important decision, drink alcoholic beverages, or take any drugs that were not prescribed by your health care provider for at least 24 hours after your discharge time. Follow any additional instructions given to you from your surgeon. If you or anyone in your household have experienced Covid symptoms in the past week, please notify your surgeon or the nurse liaison at the phone number below for possible testing. Telephone instructions given to _PATIENT_and asked if any additional questions and then verbalized understanding. Patient advised to call surgeon office or pre surgery nurse liaison [phone] if any additional questions.
--- NOTE | 2023-03-28 14:14 | WPDANESEPPF ---
Anes - Initial Pre Proc Eval Procedure: Operation Date: 03/29/23 07:30 Proposed Procedures p Cystoscopy, Bilateral Retrograde Pyelography, Holmium Laser Lithotripsy of Bladder with Stone Extraction - Corky Shoemaker MD Date/Time: 03/28/23 14:14 Surgeon: Corky Shoemaker MD Pre Op Diagnosis: Bladder Stones Patient Data Age: 77 Gender: M Height: 1.7 m Weight: 88.18 kg Allergies Allergy/AdvReac Type Severity Reaction Status Date / Time levofloxacin Allergy Mild Hives / Verified 03/29/23 06:07 Red Face doxycycline Allergy Unknown Nausea Verified 03/29/23 06:07 Penicillins Allergy Unknown Unknown- Verified 03/29/23 06:07 A CHILD dimethicone [From Dermatix] Allergy Rash Verified 03/29/23 06:07 silicon dioxide Allergy Rash Verified 03/29/23 06:07 [From Dermatix] Home Medications Medication Instructions Recorded Confirmed Type aspirin 81 mg tablet,delayed 81 mg PO DAILY 04/09/19 03/20/23 History release fluticasone fur. 100 mcg-umeclid 1 inhalation inhalation DAILY 04/09/19 03/20/23 History 62.5 mcg-vilant 25 mcg inhalat.powder (Trelegy Ellipta) levothyroxine 100 mcg tablet 100 mcg PO QAM 11/25/19 03/20/23 History candesartan 32 1 tablet PO DAILY #90 tabs 11/26/19 03/20/23 Rx mg-hydrochlorothiazide 25 mg tablet albuterol sulfate 90 mcg/actuation 2 puff inhalation PRN PRN SOB 05/31/20 03/20/23 History aerosol inhaler ascorbic acid (vitamin C) 1,000 mg 1 g PO DAILY 06/29/20 03/20/23 History tablet loratadine [Claritin] 10 mg PO DAILY 06/29/20 03/20/23 History selenium 200 mcg tablet 200 mcg PO DAILY 06/29/20 03/20/23 History metoprolol tartrate 25 mg tablet 25 mg PO BID #180 tabs 11/25/20 03/20/23 Rx atorvastatin 20 mg tablet See Rx Instructions .Route 11/29/21 03/20/23 Rx .COMPLEX #90 tabs apixaban 5 mg tablet (Eliquis) 5 mg BID 03/20/23 03/20/23 History Patient hx anesthesia problems: none Family hx anesthesia problems: none Results Review: All pre-operative results and documents have been reviewed as part of the pre-operative evaluation. [facility] [place] Past Medical History Medical History (Updated 03/28/23 @ 14:15 by Jackson Marie DO) Adult hypothyroidism Atrial fibrillation CAD in [place] artery COPD (chronic obstructive pulmonary disease) Essential (primary) hypertension History of heart attack 2018 History of malignant neoplasm of bladder History of non-ST elevation myocardial infarction (NSTEMI) History of SCC (squamous cell carcinoma) of skin Hyperlipidemia Hypoglycemia Malignant neoplasm of bladder Mixed hyperlipidemia Neuroma of right lower extremity after surgery KARTHIK on CPAP Paroxysmal atrial fibrillation with rapid ventricular response Personal history of nicotine dependence Tobacco abuse Surgical History Surgical History History of bladder surgery Family History Family History Sibling Family history of diabetes mellitus in first degree relative Family history of heart disease in male family member before age 55 Mother Family history of heart disease in male family member before age 55 Father Acute myocardial infarction Social History Social History Smoking packs per day: 1 Smoking cigarettes per day: 20.0 Years smoked: 31 Smoking pack-years: 31.00 Smoking status: Current every day smoker Tobacco type: cigarettes Second hand tobacco smoke exposure: Yes Alcohol intake: former Drinks per week: 21 Alcohol use details: VODKA - STATES QUIT SOMETIME IN 2021 Substance use: never Substance use type: does not use Living arrangements: with family Spiritual care concerns: No Anes - Eval Final PreProcedure Day of Procedure 03/28/23 14:14 Patient weight: obese Heart: regular rate and rhythm Lungs: clear to auscultation Air
[2023-03-29] VITALS (7 sets, daily range): BP systolic 102–119; BP diastolic 69–82; PULSE 63–75; RESP 13–18; TEMP 36.3–36.5; O2SAT 94–100; BMI 29.9
--- NOTE | ~2023-03-29 | XR_ITS ---
XR fluoroscopy no charge Indication: Stone removal TECHNIQUE: Fluoroscopy used during stone removal performed by [Croky Shoemaker MD] on 023. 4 seconds of fluoroscopy time with 2 fluoroscopic images captured. FINDINGS: Correlate with procedure note. IMPRESSION: Fluoroscopy used during stone removal. Reviewed, dictated and finalized at location L. BUILDER
--- NOTE | 2023-03-29 06:50 | WPDHPUPDATE1 ---
History and Physical Update Update Date/Time: 03/29/23 06:50 History and Physical has been reviewed, including an updated exam of the patient. There are NO changes in the patient's condition. Risks, benefits, and alternatives have been discussed and questions answered. Patient agrees to proceed with procedure.
[2023-03-29] MEDS: ceFAZolin 2 GM/D5W 50 ML 2 GM/50 ML BAG IVPB (07:28)
[2023-03-29] MEDS: LIDOCAINE HCL 2% GEL UROJET 10 ML PKG MUCOUS MEM (07:45)
--- NOTE | 2023-03-29 08:26 | W.PM.PROC2 ---
Procedure Note - Detailed Date of Procedure 03/29/23 Pre-op Diagnosis Bladder Stones Post-op Diagnosis Same Procedure Performed 1. Cystoscopy with laser ablation and extraction bladder stones 2. Attempted retrograde pyelography Surgeon Corky Shoemaker MD Anesthesia General Description of Procedure patient was brought to the operative suite was prepped and draped in routine sterile fashion while in dorsal lithotomy position after the uneventful induction of a general LMA anesthetic. Cystoscopy is undertaken with a 21 F rigid cystoscope. He has no urethral stricture with moderate lateral lobe hyperplasia of the prostate and no significant median lobe. Bladder shows 4 moderate-sized stones, each measuring about 2.5 cm. I first attempted retrograde pyelography but because of the position of the stone was unable to identify the ureteral orifices. Using a 550 micron [employer] laser fiber I fractured the stones into tiny pieces all of which were extracted with an Ellik evacuator. Again attempted to identify the ureteral orifices without success, likely due to urothelial mucosal edema. Placed an 18 F Guerrero catheter which white intent to remove prior to discharge. The patient tolerated the procedure well and was taken to recovery room good condition. Urine Output 0 Packing No Pathology Yes Complications No immediate complications Condition Stable Disposition PACU
[2023-03-29] MEDS: LACTATED RINGERS 1,000 ML 30 ML IV CONT (08:28)
[2023-03-29] MEDS: fentaNYL CITRATE INJ (*CRX) 100 MCG/2 ML VIAL 25 MCG IV PUSH ×4 (08:56→09:09)
[2023-03-29] MEDS: oxyCODONE HCL (*CRX) 5 MG TAB IR PO (09:19)
== END 2023-03-29 10:14 | disposition home or self-care (01) ==
PROVIDERS: PCP Family Medicine; Visit Provider Urology
PROC: (CPT 52352; principal; 2023-03-29 07:30)
DX: N21.0 Calculus in bladder (principal); I10 Essential (primary) hypertension; J44.9 Chronic obstructive pulmonary disease, unspecified; E03.9 Hypothyroidism, unspecified; I48.91 Unspecified atrial fibrillation; N40.1 Benign prostatic hyperplasia with lower urinary tract symptoms; I25.2 Old myocardial infarction; E78.5 Hyperlipidemia, unspecified; G47.33 Obstructive sleep apnea (adult) (pediatric); F17.210 Nicotine dependence, cigarettes, uncomplicated; E66.9 Obesity, unspecified; Z68.30 Body mass index [BMI] 30.0-30.9, adult; Z99.89 Dependence on other enabling machines and devices; Z98.890 Other specified postprocedural states; Z79.82 Long term (current) use of aspirin; Z79.01 Long term (current) use of anticoagulants; Z79.51 Long term (current) use of inhaled steroids; Z85.46 Personal history of malignant neoplasm of prostate; Z85.51 Personal history of malignant neoplasm of bladder; Z85.828 Personal history of other malignant neoplasm of skin; Z86.79 Personal history of other diseases of the circulatory system; Z82.49 Family history of ischemic heart disease and other diseases of the circulatory system
CPT/HCPCS: 52317; 82365; 88300; 99199; A9270; C1758; C1769; J0690; J1100; J2405; J2704; J3010; J7120; Q9966

== ENCOUNTER 2023-05-16 10:39 | Outpatient (CLI) | payer MEDICARE, SELFPAY ==
--- NOTE | ~2023-05-16 | XR_ITS ---
Lumbosacral Spine: Lateral flexion-extension views Clinical History: Pain Findings: The normal lordotic curve is maintained. 10 mm anterolisthesis of L4 over L5 is present, si milar to prior exam, with no evidence for instability on flexion or extension. Facet arthropathy, par ticularly at L4-L5 and L5-S1, as again present. The intervertebral disc spaces are preserved. The sa croiliac joints are normally outlined. Impression: 10 mm anterolisthesis of L4 over L5, similar to prior exam. Advanced facet arthropathy lower lumbar spine, as above. Reviewed, dictated and finalized at location M. OLL BOOKKEEPER Impression: 10 mm anterolisthesis of L4 over L5, similar to prior exam. Advanced facet arthropathy lower lumbar spine, as above.
== END 2023-05-16 10:40 | disposition home or self-care (01) ==
LOC: ANHIMG 10:44
PROVIDERS: PCP Family Medicine; Visit Provider Neurological Surgery
DX: M51.26 Other intervertebral disc displacement, lumbar region (principal); M43.16 Spondylolisthesis, lumbar region; M47.896 Other spondylosis, lumbar region
CPT/HCPCS: 72100

== ENCOUNTER 2024-03-27 14:12 | Outpatient (CLI) | payer MEDICARE, SELFPAY ==
--- NOTE | ~2024-03-27 | XR_ITS ---
SINGLE AP VIEW PELVIS Ordering provider: Bibi Kim MD History: . Sacroiliitis . Comparison: None. FINDINGS: BONES: No acute fracture or dislocation. HIP JOINT SPACES: Mild to moderate bilateral hip osteoarthritic changes. SACROILIAC JOINT SPACES/LUMBAR SPINE: The sacroiliac joint spaces are normal. Mild degenerative lopez es of the visualized lower lumbar spine. PUBIC SYMPHYSIS: Normal. SOFT TISSUES: Normal. IMPRESSION: No acute osseous abnormality pelvis. Bilateral hip mild to moderate osteoarthritic changes. Reviewed, dictated and finalized at location A. INE REPAIRMAN
== END 2024-03-27 14:13 | disposition home or self-care (01) ==
PROVIDERS: PCP Family Medicine; Visit Provider Physical Medicine & Rehabilitation Pain Medicine
DX: M16.0 Bilateral primary osteoarthritis of hip (principal); M46.1 Sacroiliitis, not elsewhere classified
CPT/HCPCS: 72170

== ENCOUNTER 2024-12-29 10:30 | Inpatient (IN) | payer MEDICARE, SELFPAY ==
--- OUTSIDE RECORDS SUMMARY | 2023-09-17 10:08 | XMS_ITS | Encounter Summary ---
Author Organization [facility] Healthcare Address [address] [place] [address] Care Team Providers Care Oil Heater Operator Name Role Phone Quinton Lennon MD Primary Care Provider Quinton Lennon MD Unavailable [phone] Simone Corral DO Unavailable [phone] Kashif Curran MD Unavailable [phone] Dodie Ibrahim NP Unavailable [phone] Britany Dominguez MD Unavailable [phone] Reason for Visit * Diagnostic Imaging (Routine) - Closed Specialty Diagnoses / Procedures Referred By Contac t Referred To Contact Diagnoses Bilateral hip pain Procedures XR Hips Bilateral 3 or 4 Views Jason Moreland MD Phone: tel: fax: [facility] Referral ID Status Reason Start Date Expiration Date Visits Re quested Visits Authorized [id number] Closed 09/17/2023 10/16/2024 1 1 Encounter Details Date Type Department Care Team (Late st Contact Info) Description 09/17/2023 10:08 AM CDT Hospital Encounter [facility] [place] [address] Social History Tobacco Use Types Packs/Day Years Used Date Smoking Tobacco: Every Day Cigarettes 0.5 57 Smokeless Tobacco: Never Comments:30 years [facility] Utilities Answer Date Recorded In the past 12 months has e electric, gas, oil, or water company threatened to shut off services in your home? No 06/20/2024 Social Connection and Isolation Panel Answer Date Recorded In a typical week, how many times do you talk on the phone with family, friends, or neighbors? More than three times a week 06/20/2024 How often do you get togethe r with friends or relatives? More than three times a week 06/20/2024 How often do you attend chur ch or anglican services? Never 06/20/2024 Do you belong to any clubs o r organizations such as anabaptism groups, unions, fraternal or athletic groups, or school groups? No 06/20/2024 How often do you attend meet ings of the clubs or organizations you belong to? Never 06/20/2024 Are you , , di vorced, , never , or living with a partner? 06/20/2024 AUDIT-C Answer Date Recorded Q1: How often do you have a drink containing alcohol? 4 or more times a week 06/19/2024 Q2: How many drinks containi ng alcohol do you have on a typical day when you are drinking? 1 or 2 Q3: How often do you have si x or more drinks on one occasion? Never 06/19/2024 Overall Financial Resource Strain (CARDIA) Answe r Date Recorded How hard is it for you to pa y for the very basics like food, housing, medical care, and heating? Not very hard 06/20/2024 PHQ-2 Answer Date Recorded PHQ-2 Total Score (If total score is 3 or more points, staff should administer the PHQ-9) 0 04/17/2024 Hunger Vital Sign Answer Date Recorded Within the past 12 months, y ou worried that your food would run out before you got the money to buy more. Never true 06/21/19 25 Within the past 12 months, t he food you bought just didn't last and you didn't have money to get more. Never true 06/20/2024 PRAPARE - Transportation Answer Date Re corded In the past 12 months, has l ack of transportation kept you from medical appointments or from getting medications? No 06/01 In the past 12 months, has l ack of transportation kept you from meetings, work, or from getting things needed for daily living? No 06/20/2024 Housing Stability Vital Sign Answer Andrew e Recorded In the last 12 months, was t here a time when you were not able to pay the mortgage or rent on time? No 06/20/2024 In the past 12 months, how m any times have you moved where you were living? 0 06/20/2024 [facility] were you [facility] or living in a snf (including now)? No 06/20/2024 Personal Safety Answer Date Recorded Have you ever been in or are you currently in a harmful physical or emotional relationship or is someone making you feel afraid or unsafe? 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 4 or more times a week 06/19/2024 5:52 PM KISHAT Chelly Pierce RN Q2: How many drinks containing alcohol do you have on a typical day when you are drinking? 1 or 2 06/19/2024 5:52 PM CDT Chelly Pierce R N Q3: How often do you have six or more drinks on one occasion? Never 06/19/2024 5:52 PM KISHAT Chelly Pierce R N documented as of this encounter Plan of Treatment Not on file documented as of this encounter Procedures Procedure Name Priority Date/Time Associated Diagnosis Comments XR HIPS BILATERAL 3 OR 4 VW Schedule Routine, Read Routine (OP Routine) 09/17/2023 10:12 AM CDT Bilateral hip pain documented in this encounter Results * XR Hips Bilateral 3 or 4 Views (09/17/2023 10:12 AM CDT) Anatomical Region Laterality Modality Lower Extremities, Hip, Pelvis Bilateral D igital Radiography Narrative 09/17/2023 10:41 AM CDT Today we obtained x-rays of the patient's hips and pelvis and they show that he does have some mild arthritis, but it does not appear to be severe. There is no or slight joint space narrowing but no major osteophytes no subchondral sclerosis and no subchondral cysts. Overall I would describe this is mild osteoarthritis changes. There is no evidence of any fractures or dislocations. us Jason Moreland MD IMG XR PROCEDURES Final R esult documented in this encounter Visit Diagnoses Not on filedocumented in this encounter Additional Health Concerns Infection Onset Date Last Indicated Resolved Time COVID: Suspected 12/27/2023 12/27/2023 12/27/2023 11:03 AM CDT COVID: Suspected 12/27/2023 12/27/2023 12/27/2023 8:57 PM CDT COVID: Suspected 06/06/2024 06/06/2024 06/06/2024 9:28 AM OIL AND GAS SUPERINTENDENT COVID: Suspected 06/19/2024 06/19/2024 06/19/2024 12:57 PM CDT documented as of this encounter Care Teams Oil Heater Operator Relationship Specialty Start Date End Date Quinton Lennon MD [address] [facility] [address] [place] [address] PCP - General Family Medicine 11/23/21 08/13/24 Quinton Lennon MD [address] [place] [address] Family Medicine 11/23/21 Simone Corral DO [address] [place] [address] Referring Physician Cardiology 09/20/21 Kashif Curran MD [address] [place] [address] Consulting Physician Cardiology 01/15/23 01/15/24 Dodie Ibrahim, SHERINE [address] [place] [address] Nurse Practitioner Pain Management 01/15/23 04/16/24 Britany Dominguez MD [address] [place] [address] Surgeon Anesthesiology 01/15/23 04/16/24 documented as of this encounter
--- OUTSIDE RECORDS SUMMARY | 2024-12-02 05:30 | XMS_ITS ---
Author Organization [facility] Address [address] [place] [address] Care Team Providers Care Billboard Erector Helper Name Role Phone HERRERA ARGUETA Primary Care Provider Unavailab Bibi Naranjo Unavailable [phone] LORNE GLASGOW Unavailable Unavailable Allergies Allergen (clinical drug ingredient) Drug/Non Drug Allergy documented on EMR Reaction Allergy Type Onset Date Status Penicillin rash Drug Allergy Active doxycycline Doxycycline Hyclate stomach upset Drug Allergy Active derma topix (uncoded) rash Allergy Active REASON FOR VISIT Left Lumbar Three Lumbar Four Lumbar Five Medial Branch Block Left Medications Medication SIG (Take, Route, Frequency, Duration) Notes Start Date End Date Status dexAMETHasone 2 MG 1 tablet Orally twic e a day Active tiZANidine HCl 4 MG 1-2 tablets at bedti me as needed Orally Once a day for 30 08/28/2024 Not-Taking HYDROcodone-Acetaminophen 5-325 MG 1 tablet Orally twice per day PRN for 30 days 11/19/2024 Active Magnesium Complex High Potency 250 MG 1 capsule Orally Once a day 500mg Active Multivitamin - 1 tablet Orally Once a day Active Candesartan Cilexetil-HCTZ 32-25 MG 1 tablet Orally Once a day Active Atorvastatin Calcium 80 MG 1 tablet Oral ly Once a day Active Eliquis 5 MG as directed Orally BID Active Levothyroxine Sodium 100 MCG 1 tablet in the morning on an empty stomach Orally Once a day Active Metoprolol Tartrate 25 MG 1 tablet with food Orally Twice a day Active Stool Softener 100 MG 2 capsules as need ed Orally Once a day Active Finasteride 5 MG 1 tablet Orally Once a day Active Albuterol Sulfate HFA 108 (90 Base) MCG/ACT 2 puffs Inhalation every 6 hrs Active Trelegy Ellipta 100-62.5-25 MCG/ACT 1 puff Inhalation Once a day Active Albuterol Sulfate (2.5 MG/3ML) 0.083% 3 mL as needed Inhalation every 6 hrs Active Aspirin 81 81 MG 1 tablet Orally Once a day Active Claritin 10 MG 1 tablet Orally Once a day Active Encounters Encounter Location Date Provider Diagnosis [facility] [address] [place] [address] 12/02/2024 Bibi Kim Lumbar Spondylosis without Myelopathy M47.816 Assessments Encounter Date Diagnosis (ICD Code) Assessment Notes Treatment Notes Treatment Clinical Notes Section Notes 12/02/2024 Lumbar Spondylosis without Myelopathy (ICD-10 - M47.816) Plan Of Treatment Next Appt Details Provider Name:Brandan Wood, Roberta 11:00:00 AM, [address] [place] [address], [phone], Progress Notes * RambodelaneyDOB:1945 ([age] yo M)Acc No.[id number]:12/02/2024 Injection Patient: Fahad Olvera AME Provider: Declan Kim MD :1945 A ge:79 Y S ex:Male Date:12/02/2024 Address:[address] [place], [place] [id number] Pcp:RIA ROLAND Subjective: * Chief Complaints: * 1 . Left Lumbar Three Lumbar Four Lumbar Five Medial Branch Block Left. * HPI: C omplaints: PROCEDURE: 1. Facet nerve medial branch block, L L3, L4, L5 2. Fluoroscopic imaging for needle placement 3. Radiographic interpretation: *Lumbar/Cervical 2 views DIAGNOSIS: *Cervical/Lumbar Spondylosis MEDICATION USED: 1. Facet nerve local anesthetic: 3cc bupivacaine 0.5% 2. Contrast agent: Omnipaque-300 3 cc SUBJECTIVE: This patient presents today for a L L3, L4, L5 medial branch block. PROCEDURE DESCRIPTION: Informed consent for the procedure was obtained and the patient signed the procedure consent form. The patient was given sufficient time to ask questions related to the procedure and to discuss expectations and the overall plan of treatment. The patient was brought into the procedure room and placed in the appropriate position for the L L3, L4, L5 medial branch block. An IV, if appropriate, was established and the patient received the medication noted above as recorded on the procedure documentation sheet. Betadine (or alcohol if the patient carried an iodine allergy history) was used to prepare the skin over the appropriate location for the injection and sterile drapes were applied. Strict aseptic technique was followed during the procedure. A 22-Ga spinal needle was used for the procedure. This was advanced from a lateral position and angled downward to the junction of the medial and superior aspect of the transverse process and the pedicle under AP and oblique fluoroscopic views. Lateral fluoroscopic images were used to ensure that the appropriate position for the median branch facet nerve block was obtained. Once needle placement was confirmed, the patient received the local anesthetic as noted for each nerve injected above after careful aspiration. Contrast agent was injected prior to medication administration to ensure against vascular uptake. The patient had no ill effects from the procedure. Repeat examination verified additional paresthesias or numbness in the distribution of the nerve blocked. The patient was taken to and watched in the recovery area for an appropriate period of time and then released to home in the care of a responsible adult once discharge criteria were met and discharge planning/subsequent appointments were made. FLUOROSCOPIC IMAGING FINDINGS: An initial survey of the spine in the area noted was performed with the C-arm fluoroscope, two views of the spine were viewed. The following were noted: 1. moderate degenerative changes were noted in the Lumbar region COMPLICATIONS: None. RESULTS: reduction in pain. PLAN: 1. Follow post procedure instructions and complete post procedure diary. 2. Continue on present medications. 3. Follow appointment within several weeks to check on response to the injection or to repeat the injection and to make any necessary medication adjustment and determine subsequent treatment steps or to schedule a RFA. PROCEDURE: 1. Facet nerve medial branch block, L L3, L4, L5 2. Fluoroscopic imaging for needle placement 3. Radiographic interpretation: *Lumbar/Cervical 2 views DIAGNOSIS: *Cervical/Lumbar Spondylosis MEDICATION USED: 1. Facet nerve local anesthetic: 3cc bupivacaine 0.5% 2. Contrast agent: Omnipaque-300 3 cc SUBJECTIVE: This patient presents today for a L L3, L4, L5 medial branch block. PROCEDURE DESCRIPTION: Informed consent for the procedure was obtained and the patient signed the procedure consent form. The patient was given sufficient time to ask questions related to the procedure and to discuss expectations and the overall plan of treatment. The patient was brought into the procedure room and placed in the appropriate position for the L L3, L4, L5 medial branch block. An IV, if appropriate, was established and the patient received the medication noted above as recorded on the procedure documentation sheet. Betadine (or alcohol if the patient carried an iodine allergy history) was used to prepare the skin over the appropriate location for the injection and sterile drapes were applied. Strict aseptic technique was followed during the procedure. A 22-Ga spinal needle was used for the procedure. This was advanced from a lateral position and angled downward to the junction of the medial and superior aspect of the transverse process and the pedicle under AP and oblique fluoroscopic views. Lateral fluoroscopic images were used to ensure that the appropriate position for the median branch facet nerve block was obtained. Once needle placement was confirmed, the patient received the local anesthetic as noted for each nerve injected above after careful aspiration. Contrast agent was injected prior to medication administration to ensure against vascular uptake. The patient had no ill effects from the procedure. Repeat examination verified additional paresthesias or numbness in the distribution of the nerve blocked. The patient was taken to and watched in the recovery area for an appropriate period of time and then released to home in the care of a responsible adult once discharge criteria were met and discharge planning/subsequent appointments were made. FLUOROSCOPIC IMAGING FINDINGS: An initial survey of the spine in the area noted was performed with the C-arm fluoroscope, two views of the spine were viewed. The following were noted: 1. moderate degenerative changes were noted in the Lumbar region COMPLICATIONS: None. RESULTS: 80% reduction in pain. PLAN: 1. Follow post procedure instructions and complete post procedure diary. 2. Continue on present medications. 3. Follow appointment within several weeks to check on response to the injection or to repeat the injection and to make any necessary medication adjustment and determine subsequent treatment steps or to schedule a RFA. * Medical History: * Medications: T aking dexAMETHasone 2 MG Tablet 1 tablet Orally twice a day , Taking Magnesium Complex High Potency 250 MG Capsule 1 capsule Orally Once a day , Notes to Pharmacist: 500mg, Taking Multivitamin - Tablet 1 tablet Orally Once a day , Taking Claritin 10 MG Tablet 1 tablet Orally Once a day , Taking Aspirin 81 81 MG Tablet Delayed Release 1 tablet Orally Once a day , Taking Albuterol Sulfate HFA 108 (90 Base) MCG/ACT Aerosol Solution 2 puffs Inhalation every 6 hrs , Taking Trelegy Ellipta 100-62.5-25 MCG/ACT Aerosol Powder Breath Activated 1 puff Inhalation Once a day , Taking Albuterol Sulfate (2.5 MG/3ML) 0.083% Nebulization Solution 3 mL as needed Inhalation every 6 hrs , Taking Stool Softener 100 MG Capsule 2 capsules as needed Orally Once a day , Taking Finasteride 5 MG Tablet 1 tablet Orally Once a day , Taking Candesartan Cilexetil-HCTZ 32-25 MG Tablet 1 tablet Orally Once a day , Taking Atorvastatin Calcium 80 MG Tablet 1 tablet Orally Once a day , Taking Levothyroxine Sodium 100 MCG Tablet 1 tablet in the morning on an empty stomach Orally Once a day , Taking Metoprolol Tartrate 25 MG Tablet 1 tablet with food Orally Twice a day , Taking Eliquis 5 MG Tablet as directed Orally BID , Taking HYDROcodone-Acetaminophen 5-325 MG Tablet 1 tablet Orally twice per day PRN , Not-Taking/PRN tiZANidine HCl 4 MG Tablet 1-2 tablets at bedtime as needed Orally Once a day * Allergies: P enicillin: rash - Allergy, derma topix: rash - Allergy, Doxycycline Hyclate: stomach upset - Allergy. Objective: * Vitals: Assessment: * Assessment: 1. L umbar Spondylosis without Myelopathy - M47.816 (Primary) Plan: * Treatment: * Procedures: D isc space narrowing at L45 and L5S1 End plate changes at L4L5 Moderately advanced spondyltic changes at L45 and L5S1. * Procedure Codes: 6 4493 INJ PARAVERT F JNT L/S 1 LEV, Modifiers: LT , [place], [address] INJ PARAVERT F JNT L/S 2 LEV, Modifiers: LT , [place], [address] X-RAY EXAM OF LOWER SPINE * * Electronic signature of Bibi Kim MD on 12/29/2024 at 11:38 AM CDT Sign off status: Pending * Provider: Declan Kim MD Date: 0 12/02/2024 Generated for Dougiei tessa/Nancy/eTransmitting on: 12/29/2024 11:38 AM CDT
--- OUTSIDE RECORDS SUMMARY | 2024-12-09 06:30 | XMS_ITS ---
Author Organization [facility] Address [address] [place] [address] Care Team Providers Care Senior Nurse Manager Name Role Phone HERRERA ARGUETA Primary Care Provider Unavailab Bibi Naranjo Unavailable [phone] LORNE GLASGOW Unavailable Unavailable REASON FOR VISIT Left L3 L4 L5 MBB Encounters Encounter Location Date Provider Diagnosis [facility] [address] 12/09/2024 Bibi Kim Plan Of Treatment Next Appt Details Provider Name:Brandan Wood, Roberta 11:00:00 AM, [address] [place] [address], [phone], Progress Notes * Fahad DE LA ODOB:1945 ([age] yo M)Acc No.[id number]:12/09/2024 Injection Patient: Fahad Olvera AME Provider: Declan Kim MD :1945 A ge:79 Y S ex:Male Date:12/09/2024 Address:[address] [place] [address] Route , [facility] Pcp:RIA ROLAND Subjective: * Chief Complaints: * Medical History: Objective: Assessment: Plan: * Treatment: * * Electronic signature of Bibi Kim MD on 12/29/2024 at 11:38 AM CDT Sign off status: Pending * Provider: Declan Kim MD Date: 0 12/09/2024 Generated for Bandar zarate/Nancy/eTransmitting on: 0 12/29/2024 11:38 AM CDT
--- OUTSIDE RECORDS SUMMARY | 2024-12-16 06:00 | XMS_ITS ---
Author Organization [facility] Address [address] [place] [address] Care Team Providers Care Monument Letterer Name Role Phone HERRERA ARGUETA Primary Care Provider Unavailab Bibi Naranjo Unavailable [phone] LORNE GLASGOW Unavailable Unavailable Brandan Wood Unavailable [phone] REASON FOR VISIT 4 Weeks + RX Medications Medication SIG (Take, Route, Frequency, Duration) Notes Start Date End Date Status Stool Softener 100 MG 2 capsules as need ed Orally Once a day Active Albuterol Sulfate (2.5 MG/3ML) 0.083% 3 mL as needed Inhalation every 6 hrs Active Candesartan Cilexetil-HCTZ 32-25 MG 1 tablet Orally Once a day Active Finasteride 5 MG 1 tablet Orally Once a day Active Atorvastatin Calcium 80 MG 1 tablet Oral ly Once a day Active Aspirin 81 81 MG 1 tablet Orally Once a day Active Claritin 10 MG 1 tablet Orally Once a day Active Trelegy Ellipta 100-62.5-25 MCG/ACT 1 puff Inhalation Once a day Active Albuterol Sulfate HFA 108 (90 Base) MCG/ACT 2 puffs Inhalation every 6 hrs Active Multivitamin - 1 tablet Orally Once a day Active tiZANidine HCl 4 MG 1-2 tablets at bedti me as needed Orally Once a day for 30 08/28/2024 Not-Taking Eliquis 5 MG as directed Orally BID Active HYDROcodone-Acetaminophen 5-325 MG 1 tablet Orally twice per day PRN for 30 days 11/19/2024 Active Magnesium Complex High Potency 250 MG 1 capsule Orally Once a day 500mg Active dexAMETHasone 2 MG 1 tablet Orally twic e a day Active Metoprolol Tartrate 25 MG 1 tablet with food Orally Twice a day Active Levothyroxine Sodium 100 MCG 1 tablet in the morning on an empty stomach Orally Once a day Active Encounters Encounter Location Date Provider Diagnosis [facility] [address] 12/16/2024 Brandan Wood Assessments Encounter Date Diagnosis (ICD Code) Assessment Notes Treatment Notes Treatment Clinical Notes Section Notes 12/16/2024 Other Notes: Significant time was spent due to complex decision-making as a result of the patient's complicated pain issues. The plan is as follows: Patient will continue exercise therapy regimen. Reviewed most recent drug screen report which shows no concerning abnormalities Will refill pt's hydrocodone-sully taminophen as it improves pain and function without significant side effects. Will obtain drug screen today. Assessment is unchanged from 11/18/24 except as denoted below. Plan Of Treatment Treatment Notes Assessment Notes Other Notes: Significant time was spent due to complex decision-making as a result of the patient's complicated pain issues. The plan is as follows: Patient will continue exercise therapy regimen. Reviewed most recent drug screen report which shows no concerning abnormalities Will refill pt's hydrocodone-acetaminophen as it improves pain and function without significant side effects. Will obtain drug screen today. Next Appt Details Provider Name:Brandan Wood, Roberta 11:00:00 AM, [address] [place] [address], [phone], Progress Notes * Fahad DE LA ODOB:1945 ([age] yo M)Acc No.[id number]:12/16/2024 Progress Notes Patient: Fahad Olvera AME Provider: NATY Ge :1945 A ge:79 Y S ex:Male Date:12/16/2024 Address:[address] [place] [address], [id number] Pcp:RIA ROLAND Subjective: * Chief Complaints: * 1 . 4 Weeks + RX. * HPI: C omplaints: On a scale of 1-10 how would you rate your pain today? Patient reports pain rated at a level Where is your pain today and how long has the pain been present? Patient reports pain located How would you describe your pain, is it aching, stabbing, dull, sharp or burning? Patient reports Is there anything that you do that makes the pain better? Patient reports the pain decreases with Is there anything that you do that makes the pain worse? Patient reports the pain increases with What daily activities does your pain make more difficult? Patient reports How many hours of sleep a night would you say you're getting? Patient reports obtaining hours of sleep per night. Is the pain causing you to wake up at night, if so how often? Patient reports What medications are you currently taking to manage the pain and how long have you been taking these medications? Patient reports taking Have you had any injections recently and if you have, how much relief have you gotten from those? Patient reports Have you had any recent falls? Patient reports The pain disability index score at today's visit is: ____. * Medical History: * Medications: T aking [...] bedtime as needed Orally Once a day Objective: * Vitals: * Examination: G eneral Examination: P hysical exam is unchanged from 11/18/24 except as denoted below. GENERAL APPEARANCE: well developed, well nourished, alert, and cooperative; in no apparent distress HEAD: normocephalic, atraumatic EYES: sclera non-icteric, extra ocular eye movements intact CHEST: respiratory rate normal, no signs of respiratory distress SKIN: no suspicious lesions, no rashes, no edema NEURO: Normal speech; walking unassisted without a cane or a walker. Assessment: * Assessment: Assessment is unchanged from 11/18/24 except as denoted below. Plan: * Treatment: * * Electronic signature of NATY Nguyen on 12/29/2024 at 11:39 AM CDT Sign off status: Pending * Provider: NATY Ge Date: 12/16/2024 Generated for Bandar zarate/Nancy/Rachelle on: 12/29/2024 11:39 AM CDT History and Physical Notes * Examination Category Sub-Category Detail Notes Category Not es General Examination Physical exam is unchanged from 11/18/24 except as denoted below. GENERAL APPEARANCE: well developed, well nourished, alert, and cooperative; in no apparent distress HEAD: normocephalic, atraumatic EYES: sclera non-icteric, extra ocular eye movements intact CHEST: respiratory rate normal, no signs of respiratory distress SKIN: no suspicious lesions, no rashes, no edema NEURO: Normal speech; walking unassisted without a cane or a walker
--- OUTSIDE RECORDS SUMMARY | 2024-12-25 04:45 | XMS_ITS ---
Author Organization [facility] Address [address] [place] [address] Care Team Providers Care Recovery Coordinator Name Role Phone HERRERA ARGUETA Primary Care Provider Unavailab Bibi Naranjo Unavailable [phone] LORNE GLASGOW Unavailable Unavailable Brandan Wood Unavailable [phone] Allergies Allergen (clinical drug ingredient) Drug/Non Drug Allergy documented on EMR Reaction Allergy Type Onset Date Status Penicillin rash Drug Allergy Active doxycycline Doxycycline Hyclate stomach upset Drug Allergy Active derma topix (uncoded) rash Allergy Active Medications Medication SIG (Take, Route, Frequency, Duration) Notes Start Date End Date Status tiZANidine HCl 4 MG 1-2 tablets at bedti il as needed Orally Once a day for 30 08/28/2024 Active HYDROcodone-Acetaminophen 5-325 MG 1 tablet Orally twice per day PRN for 30 days 11/19/2024 Active Eliquis 5 MG as directed Orally BID Active Metoprolol Tartrate 25 MG 1 tablet with food Orally Twice a day Active Levothyroxine Sodium 100 MCG 1 tablet in the morning on an empty stomach Orally Once a day Active Stool Softener 100 MG 2 capsules as need ed Orally Once a day Active Albuterol Sulfate (2.5 MG/3ML) 0.083% 3 mL as needed Inhalation every 6 hrs Active Atorvastatin Calcium 80 MG 1 tablet Oral ly Once a day Active Candesartan Cilexetil-HCTZ 32-25 MG 1 tablet Orally Once a day Active Finasteride 5 MG 1 tablet Orally Once a day Active Trelegy Ellipta 100-62.5-25 MCG/ACT 1 puff Inhalation Once a day Active Albuterol Sulfate HFA 108 (90 Base) MCG/ACT 2 puffs Inhalation every 6 hrs Active Claritin 10 MG 1 tablet Orally Once a day Active Multivitamin - 1 tablet Orally Once a day Active Zinc 50 MG 1 tablet Orally Once a day Active Magnesium Complex High Potency 250 MG 1 capsule Orally Once a day 500mg Active Vitamin D3 50 MCG (1999 UT) 1 capsule Or ally Once a day Active Vitamin C 100 MG 1 tablet Orally Once a day Active Osteo Bi-Flex Regular Strength Active Encounters Encounter Location Date Provider Diagnosis [facility] [address] 12/25/2024 Brandan Wood Vertebrogenic low ba ck pain M54.51 and Other intervertebral disc degeneration, 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 12/25/2024 Other intervertebral disc degeneration, lumbar region with discogenic back pain only (ICD-10 - M51.360) Assessment is unchanged from 11/18/24 except as denoted below. 12/25/2024 Other Notes: Significant time was spent due to complex decision-making as a result of the patient's complicated pain issues. The plan is as follows: Patient will continue exercise therapy regimen. Reviewed most recent drug screen report which shows no concerning abnormalities Will refill pt's hydrocodone-acet aminophen as it improves pain and function without significant side effects. Will obtain drug screen today. We will order an MRI of the lumbar spine to evaluate for possible worsening stenosis vs. HNP vs. vertebrogenic degeneration as a cause of the patient's radicular pain symptoms. We will review imaging at a follow-up visit and plan for next treatment steps. Will have the pt proceed with his upcoming lumbar RFAs as planned. We will not add or change any medications at this time as the patient is currently tolerating all medications with no significant side effects. Advised pt to contact clinic if they develop any new/worsening symptoms or pain The total encounter time for today's visit was 30 minutes which was spent on preparation for the visit, e.g. chart review, and in the activities documented in this note. Please refer back to the HPI and physical exam sections of this note for further details regarding this encounter. Assessment is unchanged from 11/18/24 except as [...] side effects. Will obtain drug screen today. We will order an MRI of the lumbar spine to evaluate for possible worsening stenosis vs. HNP vs. vertebrogenic degeneration as a cause of the patient's radicular pain symptoms. We will review imaging at a follow-up visit and plan for next treatment steps. Will have the pt proceed with his upcoming lumbar RFAs as planned. We will not add or change any medications at this time as the patient is currently tolerating all medications with no significant side effects. Advised pt to contact clinic if they develop any new/worsening symptoms or pain The total encounter time for today's visit was 30 minutes which was spent on preparation for the visit, e.g. chart review, and in the activities documented in this note. Please refer back to the HPI and physical exam sections of this note for further details regarding this encounter. Next Appt Details Provider Name:Brandan Wood, Roberta 11:00:00 AM, [address] [place] [address], [phone], Progress Notes * Fahad DE LA ODOB:1945 ([age] yo M)Acc No.[id number]:12/25/2024 Progress Notes Patient: Fahad Olvera AME Provider: NATY Ge :1945 A ge:79 Y S ex:Male Date:12/25/2024 Address:[address] [place], [place] [id number] Pcp:RIA ROLAND Subjective: * Chief Complaints: * * HPI: C omplaints: On a scale of 1-10 how would you rate your pain today? Patient reports pain rated at a level 8/10. Where is your pain today and how long has the pain been present? Patient reports pain located across the lower back. How would you describe your pain, is it aching, stabbing, dull, sharp or burning? Patient reports pain is aching. Is there anything that you do that makes the pain better? Patient reports the pain decreases with laying down with feet elevated and using a heat pad. Is there anything that you do that makes the pain worse? Patient reports the pain increases with physical activity. What daily activities does your pain make more difficult? 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 How many hours of sleep a night would you say you're getting? Patient reports obtaining 5 hours of sleep per night. Is the pain causing you to wake up at night, if so how often? Patient reports nightly disturbances caused by pain. What medications are you currently taking to manage the pain and how long have you been taking these medications? Patient reports taking hydrocodone and ibuprofen PRN Have you had any injections recently and if you have, how much relief have you gotten from those? Patient reports 80% relief from 12/02/24 L [id number] MBB for three days, but has since worn off. Have you had any recent falls? Patient reports no recent falls. The pain disability index score at today's visit is: 46 pt denies additional complaints at this time. * Medical History: C oronary Artery Disease s/p [place], High Cholesterol, High Blood pressure, COPD, Osteoarthritis, Hypothyroid, Bladder Cancer (s/pTURBT X2). * Surgical History: T URBT X2 , Right LE Fracture s/p ORIF , Tonsillectomy . * Medications: T aking Osteo Bi-Flex Regular Strength , Taking Zinc 50 MG Tablet 1 tablet Orally Once a day , Taking Vitamin C 100 MG Tablet 1 tablet Orally Once a day , Taking Vitamin D3 50 MCG (2000 UT) Capsule 1 capsule Orally Once a day , Taking Magnesium Complex High [...] Tablet as directed Orally BID , Taking HYDROcodone- Acetaminophen 5-325 MG Tablet 1 tablet Orally twice per day PRN , Taking tiZANidine HCl 4 MG Tablet 1-2 tablets at bedtime as needed Orally Once a day , Discontinued dexAMETHasone 2 MG Tablet 1 tablet Orally twice a day , Discontinued Aspirin 81 81 MG Tablet Delayed Release 1 tablet Orally Once a day * Allergies: P enicillin: rash - Allergy, derma topix: rash - Allergy, Doxycycline Hyclate: stomach upset - Allergy. Objective: * Vitals: * Examination: G eneral [...] cane or a walker. Assessment: * Assessment: 1. V ertebrogenic low back pain - M54.51 (Primary) 2 . O ther intervertebral disc degeneration, lumbar region with discogenic back pain only - M51.360 Assessment is unchanged from 11/18/24 except as denoted below. Plan: * Treatment: * * Electronic signature of NATY Nguyen on 12/29/2024 at 11:38 AM CDT Sign off status: Pending * Provider: NATY Ge Date: 12/25/2024 Generated for Bandar zarate/Nancy/Rachelle on: 12/29/2024 11:38 AM CDT History and Physical Notes * [...]
[2024-12-29] VITALS (14 sets, daily range): BP systolic 101–113; BP diastolic 59–75; PULSE 91–107; RESP 17–22; TEMP 36.6–37.3; O2SAT 90–95; BMI 26.6
--- NOTE | 2024-12-29 | ECHO_ITS ---
Patient Info Name: Fahad Meier Age: 79 years : 1945 Gender: Male Ht: 66 in Wt: 165 lbs BSA: 1.88 m2 HR: 98 bpm BP: 110 / 70 mmHg Technical Quality: Poor Exam Date: 12/29/2024 4:17 PM Patient Status: I Admit Date: 12/29/2024 Exam Type: CA echo dop color flow w con Complete two-dimensional, color flow and Doppler transthoracic echocardiogram is performed with contrast to opacify the left ventricle and to improve the deliniation of the left ventricle endocardial borders. Staff Referring Physician: Mary Kay Larry MD Shell Assembler: Musa Park III Attending Provider: Naomie Fournier Contrast/Agitated Saline Contrast/Ag. Saline: Definity Amount: 2.00 ml Administered By: Musa Park III Existing IV Access: Yes IV Access Condition: patent with no signs of infiltration Summary 1. Patient unable to lay in LLD for exam. 2. Left ventricular systolic function is hyperdynamic, estimated at >70. 3. The left ventricular diastolic function is grade I diastolic dysfunction. Left Ventricle Left ventricular chamber dimension is normal. Left ventricular systolic function is hyperdynamic, estimated at >70. There is mildly increased left ventricular wall thickness. Left ventricular septal wall motion is normal. The left ventricular diastolic function is grade I diastolic dysfunction. Right Ventricle Right ventricular chamber dimension is mildly enlarged. Right ventricular systolic function is normal. Left Atria Left atrial chamber dimension is normal. Right Atria Right atrial chamber dimension is normal. Aortic Valve The aortic valve is trileaflet. There is no aortic valve sclerosis. There is no aortic valve stenosis. There is no aortic valve regurgitation. Pulmonic Valve The pulmonic valve is normal. There is no pulmonic valve stenosis. There is no pulmonic regurgitation. Mitral Valve The mitral valve has normal leaflets. There is no mitral valve stenosis. There is no mitral valve regurgitation. Tricuspid Valve The tricuspid valve leaflets are normal. There is no significant tricuspid valve stenosis. There is no tricuspid valve regurgitation. Pericardium/Pleural The pericardium appears normal. There is no pericardial effusion. Inferior Vena Cava Normal inferior vena cava with >50% collapse upon inspiration consistent with normal right atrial pressure, 5 mmHg. Aorta The aortic root size at the sinus of Valsalva is normal. The prox ascending aorta size is normal. Left Ventricular Outflow Tract Name Value Normal LVOT 2D LVOT Diameter 2.0 cm LVOT Doppler LVOT Peak Velocity 134 cm/s LVOT Peak Gradient 7 mmHg LVOT Mean Gradient 4 mmHg LVOT VTI 25 cm LVOT VTI/AV VTI Ratio 1.2 LVOT Stroke Volume 78 ml LVOT CO 8.1 l/min LVOT CI 4.3 l/min/m2 Pulmonic Valve Name Value Normal PV Doppler PV Peak Velocity 144 cm/s PV Peak Gradient 8 mmHg PV Mean Gradient 4 mmHg Mitral Valve Name Value Normal MV Doppler MV Peak Gradient 7 mmHg MV Mean Gradient 3 mmHg MV Area (Cont Eq VTI) 4.4 cm2 MV Diastolic Function MV E Peak Velocity 70 cm/s MV A Peak Velocity 118 cm/s MV E/A 0.6 MV Decel Time (PW) 183 ms MV Annular TDI MV E/e' (Septal) 9.0 MV E/e' (Lateral) 9.1 MV E/e' (Average) 9.1 Tricuspid Valve Name Value Normal Estimated PAP/RSVP RA Pressure 5 mmHg <=5 TV Annular TDI TV Lateral Kathya s' Velocity 17.4 cm/s >=9.5 Aortic Valve Name Value Normal AV Doppler AV Peak Velocity 139 cm/s AV Peak Gradient 8 mmHg AV Mean Gradient 4 mmHg AV VTI 20 cm AV Area (Cont Eq VTI) 3.9 cm2 >=3.0 AV Area (Cont Eq Christian) 3.1 cm2 AV DI (Christian) 0.97 AV Regurgitation 2D LVOT Area 3.2 cm2 Ventricles Name Value Normal LV Dimensions 2D/MM LVOT Diameter 2.0 cm LV Fractional Shortening/Ejection Fraction 2D/MM LV Diastolic Volume (4C MOD) 71 ml LV EF (4C MOD) 80 % LV Diastolic Volume (2C MOD) 60 ml LV EF (2C MOD) 81 % LV Diastolic Volume (BP MOD) 68 ml 62-150 LV Diastolic Volume Index (BP MOD) 36 ml/m2 34-74 LV Systolic Volume (BP MOD) 13 ml 21-61 LV Systolic Volume Index (BP MOD) 7 ml/m2 11-31 LV EF (BP MOD) 80 % 52-72 LV Diastolic Length (4C) 7.8 cm LV Systolic Length (4C) 5.7 cm LV Stroke Volume (4C MOD) 57 ml Atria Name Value Normal LA Dimensions LA Volume (4C A-L) 28 ml LA Volume (BP A-L) 28 ml RA Dimensions RA Systolic Major [place] Length (4C) 4.9 cm 2.1-2.7 RA Area (4C) 16.5 cm2 <=18.0 Report Signatures
--- NOTE | ~2024-12-29 | XR_ITS ---
Examination: XR chest 1V Clinical History: shortness of breath Comparison: None Technique: Portable AP Findings: Heart size normal. Innumerable tiny calcified foci throughout lungs. Minimal left basilar atelectasis and/or scarring. Hyperinflation. No acute bony abnormality. IMPRESSION: 1. No acute cardiopulmonary findings given portable technique. Reviewed, dictated and finalized at location R.
--- NOTE | ~2024-12-29 | XR_ITS ---
EXAMINATION: [id number] DATE: 12/29/2024 12:00 INDICATION: Left knee pain TECHNIQUE: AP and crosstable lateral views of the left knee were obtained. COMPARISON: None. FINDINGS: Alignment is normal. No fracture. Joint spaces appear normal on nonweightbearing imaging. Small enthesophytes at the anterior tibial and patellar insertions of the distal quadriceps and proximal and distal patellar tendons. Small loose osteochondral body versus heterotopic ossicle along the cephalad margin of the patella. Small amount of atherosclerotic calcific location along the popliteal artery. Soft tissues are otherwise unremarkable. No left knee joint effusion.. IMPRESSION: 1. No left knee joint effusion or acute osseous abnormality. Reviewed, dictated and finalized at location A.
--- NOTE | ~2024-12-29 | XR_ITS ---
EXAMINATION: XR hip LT 2V w AP pelvis, 12/29/2024 11:36 CDT HISTORY: severe hip pain COMPARISON: No comparisons available. Findings: Nondisplaced fracture of the femoral neck. No significant degenerative changes. Soft tissues unremarkable. Impression: Left femoral neck fracture Reviewed, dictated and finalized at location P. Impression: Left femoral neck fracture
--- NOTE | ~2024-12-29 | XR_ITS ---
EXAMINATION: XR chest 1V portable COMPARISON: No comparisons available. HISTORY: sob coarse lung sounds FINDINGS: Scattered bilateral infiltrates COPD changes. No pneumothorax. Heart is normal size. Mediastinal and hilar contours are within normal limits. Bony thorax no acute abnormality. Miscellaneous: None Impression: Early bilateral pneumonia Reviewed, dictated and finalized at location P. Impression: Early bilateral pneumonia
--- NOTE | ~2024-12-29 | CT_ITS ---
CT HEAD NON-CONTRAST Clinical History: fall, confusion Comparison: None Technique: Unenhanced axial images skull base to vertex Coronal, sagittal reformats CT images acquired with automatic exposure control for dose reduction DLP: 984 mGy-cm Findings: Sulci, ventricles: Unremarkable. No intracerebral hemorrhage. No evidence acute territorial infarct. No mass effect, midline shift. Bony calvarium intact. Visualized paranasal sinuses: Clear. Mastoid air cells: Clear. IMPRESSION: 1. No acute intracranial findings. Reviewed, dictated and finalized at location R.
--- NOTE | ~2024-12-29 | XR_ITS ---
EXAMINATION: XR foot LT 2V DATE: 12/29/2024 11:59 INDICATION: Left foot swelling TECHNIQUE: Dorsoplantar, two oblique and lateral views of the left foot were obtained. COMPARISON: None. FINDINGS: Bone alignment is normal. No fracture. Mild polyarticular osteoarthritis at the first metatarsophalangeal, calcaneocuboid and several tarsal metatarsal and interphalangeal joints. No periosteal reaction or cortical erosions. Achilles calcaneal spur with small amount of enthesopathic ossification at the distal Achilles tendon. Diffuse mild soft tissue swelling about the left foot. IMPRESSION: 1. 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 No acute osseous abnormality. Reviewed, dictated and finalized at location A.
--- NOTE | ~2024-12-29 | XR_ITS ---
EXAMINATION: XR hip LT 1V, 12/31/2024 16:33 CDT HISTORY: POST-OP LEFT HIP BIPOLAR COMPARISON: No comparisons available. Findings: No acute fracture or malalignment. Arthroplasty intact Soft tissues unremarkable. Impression: No acute fracture or malalignment. Reviewed, dictated and finalized at location P. Impression: No acute fracture or malalignment.
--- NOTE | 2024-12-29 10:51 | ECG_ITS ---
Test Date: 2024-12-29 10:58:39 Measurements Intervals [place] Rate: 107 P: 79 TN: 181 QRS: -41 QRSD: 88 T: 65 QT: 334 QTc: 446 Interpretive Statements SINUS TACHYCARDIA LEFT AXIS DEVIATION [QRS AXIS < -30] No previous ECG available for comparison Electronically Signed On 12-29-2024 11:13:41 CDT by Akila Daigle M.D.
--- NOTE | 2024-12-29 11:09 | ED.FALL ---
HPI - Fall General Chief Complaint: Fall Stated Complaint: fall Time Seen by Provider: 12/29/24 10:44 Source: patient, EMS, RN notes reviewed and old records reviewed Mode of arrival: EMS Limitations: other (poor historian) History of Present Illness HPI Narrative: This is a 79 year old male with history of afib, chronic anticoagulation, hypertension , COPD who presents for evaluation of left hip pain. Patient states he has been having left hip pain for severe months. He had worsening left hip pain this morning, but he is unsure if he feel. His daughter states that they found him in his recliner this morning with severe left hip pain. They think he may have fallen but he is unsure. He was found to have skin tear to his right elbow. He is also having some trouble breathing but he thinks this may be due to his pain. EMS gave patient neb treatment and 75 mcg fentanyl in route to hospital. His daughter has also noticed swelling to his left foot today. They reports he has been evaluated for his left hip pain and he was told it was arthritis. Related Data Home Medications ?Medication ?Instructions ?Recorded ?Confirmed ?Last Taken ?Type aspirin 81 mg tablet,delayed 81 mg PO DAILY 04/09/19 12/29/24 12/28/24 History release fluticasone fur. 100 mcg-umeclid 1 inhalation inhalation DAILY 04/09/19 12/29/24 12/28/24 History 62.5 mcg-vilant 25 mcg inhalat.powder (Trelegy Ellipta) levothyroxine 100 mcg tablet 100 mcg PO QAM 11/25/19 12/29/24 12/28/24 History albuterol sulfate 90 mcg/actuation 2 puff inhalation PRN PRN SOB 05/31/20 12/29/24 12/28/24 History aerosol inhaler ascorbic acid (vitamin C) 1,000 mg 1 g PO DAILY 06/29/20 12/29/24 12/28/24 History tablet loratadine [Claritin] 10 mg PO DAILY 06/29/20 12/29/24 12/28/24 History selenium 200 mcg tablet 200 mcg PO DAILY 06/29/20 12/29/24 12/28/24 History apixaban 5 mg tablet (Eliquis) 5 mg PO BID 03/20/23 12/29/24 12/28/24 History Allergies Allergy/AdvReac Type Severity Reaction Status Date / Time levofloxacin Allergy Mild Hives / Verified 12/29/24 15:10 Red Face Penicillins Allergy Unknown Unknown- Verified 12/29/24 15:10 A CHILD dimethicone (From Dermatix) Allergy Rash Verified 12/29/24 15:10 silicon dioxide (From Allergy Rash Verified 12/29/24 15:10 Dermatix) doxycycline AdvReac Unknown Nausea Verified 12/29/24 15:10 PMFSH Past Medical History Medical History History of heart attack 2018 Atrial fibrillation History of non-ST elevation myocardial infarction (NSTEMI) Tobacco abuse CAD in [place] artery COPD (chronic obstructive pulmonary disease) History of SCC (squamous cell carcinoma) of skin History of malignant neoplasm of bladder Hypoglycemia Adult hypothyroidism Mixed hyperlipidemia KARTHIK on CPAP Paroxysmal atrial fibrillation with rapid ventricular response Personal history of nicotine dependence Neuroma of right lower extremity after surgery Malignant neoplasm of bladder Essential (primary) hypertension Hyperlipidemia Surgical History Surgical History History of bladder surgery Family History Family History Sibling Family history of diabetes mellitus in first degree relative Family history of heart disease in male family member before age 55 Mother Family history of heart disease in male family member before age 55 Father Acute myocardial infarction Social History Social History Smoking packs per day: 1 Smoking cigarettes per day: 20.0 Years smoked: 31 Smoking pack-years: 31.00 Smoking status: Current every day smoker Tobacco type: cigarettes Second hand tobacco smoke exposure: Yes Alcohol intake: former Drinks per week: 21 Alcohol use details: VODKA - STATES QUIT SOMETIME IN 2021 Substance use: never Substance use type: does not use Do You Feel Safe in your Home?: Yes Lack of Transportation: No Lack of Food: Never True Current Housing: I Have Housing Concerned About Future Housing: No Difficulty Paying Gas/Electric Bills: No Difficulty Paying for Meds: No Currently Unemployed: No Education: High School Diploma/GED Difficulty w/ Childcare or Family Care: Decline to Answer Living arrangements: with family Spiritual care concerns: No Exam Const: General: alert Nutritional Appearance: well nourished Orientation/consciousness: patient oriented x3 Other: tachypnea and appears to be in pain HENMT: Head: normal to inspection Eyes: EOM: EOMs intact bilaterally Resp: Effort & Inspection: tachypneic Auscultation: wheezes Cardio: Rate: tachycardic Rhythm: regular rhythm Heart sounds: no murmurs GI: GI Palp: Yes Soft to palpation, No Tenderness to palpation present (GI), No Guarding due to palpation present (GI) and No Rigid due to palpation Auscultation: normal bowel sounds Skin: Wounds: wounds noted (right elbow skin tear) Neuro: General: moves all extremities Extrem: General: edema (worse on left foot and ankle) bilateral Other: left hip in flexion for comfort. Unable to move due to pain Psych: Mental Status: mental status grossly normal Affect: normal affect Attitude: cooperative Course Reevaluation(s) Reevaluation #1: I discussed with patient and his daughter. I Discussed he has broken hip that he will be need to be admitted for evaluation by ortho Date: 12/29/24 Time: 12:40 Consultations Consultation #1: I Spoke with Dr. Horne with ortho. He states to admit to hospitalist and he can be consulted. Date: 12/29/24 Time: 12:45 Consultation #2: I spoke with hospitalist Dr. Fournier who accepts patient to service. Date: 12/29/24 Time: 12:54 Vital Signs Vital signs: Vital Signs Temperature 98.4 F 12/29/24 10:31 Pulse Rate 100 12/29/24 10:31 Respiratory Rate 18 12/29/24 10:31 Blood Pressure 101/75 12/29/24 10:31 Pulse Oximetry 92 12/29/24 10:31 Oxygen Delivery Room Air 12/29/24 10:31 Temperature 97.8 F 12/29/24 14:15 Pulse Rate 98 12/29/24 14:15 Respiratory Rate 20 12/29/24 14:15 Blood Pressure 110/70 12/29/24 14:15 Pulse Oximetry 94 12/29/24 17:32 Oxygen Delivery Nasal Cannula 12/29/24 17:32 Oxygen Flow Rate 1 12/29/24 17:32 MDM - Fall MDM Narrative Medical decision making narrative: This is a 79 year old male who presents for evaluation of left hip. Patient is mild respiratory distress likely due to combination of COPD and severe pain to hip. He is unsure how he fell . I ordered imaging CT brain, left hip, left knee. labs ordered, EKG, chest xray. HE was given Dilaudid 0.5 mg IV twice in ER for pain. Consulted ortho and was admitted to hospitalist. Differential Diagnosis Differential diagnosis: Likely compression fracture, concussion without loss of consciousness and other (hip fracture, COPD, leg fracture) Medical Records Attestation: I reviewed the patient's medical records. Lab Data Attestation: I reviewed the patient's lab results. 12/29/24 11:06 12/29/24 11:06 Labs: Lab Results 12/29/24 Range/Units 11:06 WBC 16.8 H (4.5-10.0) K/mm3 RBC 5.11 (4.6-6.20) M/mm3 Hgb 15.2 (14.0-18.0) g/dL Hct 45.7 (42.0-52.0) % MCV 89.4 (80-100) fl MCH 29.7 (26-34) pg MCHC 33.3 (32-36) g/dl RDW 14.2 (11.5-14.5) % Plt Count 256 D (150-375) k/mm3 MPV 10.4 (7.4-10.4) fl Immature Gran % (Auto) 0.5 (0-0.5) % Neut % (Auto) 85.4 H (45.5-73.1) % Lymph % (Auto) 5.5 L (18.3-44.2) % [place] % (Auto) 7.6 (2.6-8.5) % Eos % (Auto) 0.5 (0-4.4) % Baso % (Auto) 0.5 (0.2-1.2) % Lymph # (Auto) 0.92 (0.9-3.2) K/mm3 [place] # (Auto) 1.3 H (0.1-0.6) K/mm3 Eos # (Auto) 0.1 (0-0.3) K/mm3 Baso # (Auto) 0.1 (0.0-0.1) K/mm3 Abs Immat Gran (auto) 0.08 H (0.00-0.031) K/mm3 Absolute Neuts (auto) 14.3 H (1.3-6.7) K/mm3 Absolute Nucleated RBC 0.000 (0.0-0.012) K/mm3 Nucleated RBC % 0.0 (0.0-0.2) % PT 14.8 H (11.1-14.7) Seconds INR 1.2 APTT 35.8 (22.3-36.8) Seconds Methemoglobin 0.1 (0-1.5) %THb Sodium 135 L (137-145) mmol/L Potassium 3.5 (3.4-5.0) mmol/L Chloride 103 (98-107) mmol/L Carbon Dioxide 21 L (22-30) mmol/L Anion Gap 11 (4-12) mmol/L BUN 24 H (9-20) mg/dL Creatinine 0.86 (0.7-1.3) mg/dL Estim Creat Clear Calc 57 ml/min Estimated GFR > 60 (59 - ) Glucose 105 (65-110) mg/dL Calcium 9.3 (8.4-10.2) mg/dL Total Bilirubin 0.7 (0.2-1.3) mg/dL AST 31 (17-59) U/L ALT 18 (6-50) U/L Alkaline Phosphatase 74 (38-126) U/L Troponin I < 0.012 (0.000-0.034) ng/mL NT-Pro-B Natriuret Pep 361 H (19.9-100) pg/mL Total Protein 6.8 (6.3-8.2) g/dL Albumin 4.0 (3.5-5.1) g/dL ABG Data ABG results: 12/29/24 11:06 Puncture Site Right radial ABG pH 7.401 ABG pCO2 35.7 ABG pO2 63.8 L ABG PO2/FiO2 Ratio 2.66 ABG HCO3 21.7 L ABG O2 Saturation 92.6 L ABG O2 Content 19.3 ABG Base Excess -2.4 A-a Gradient 64.8 Carboxyhemoglobin 3.9 H Reduced Hemoglobin 8.3 H Total Hemoglobin 15.7 O2 Delivery Device Nasal cannula O2 Liters/Min 1.0 FiO2 24 Imaging Data Radiologist's impression: ITS Impressions Head CT 12/29/24 12:03 IMPRESSION: 1. No acute intracranial findings. Chest X-Ray 12/29/24 12:05 IMPRESSION: 1. No acute cardiopulmonary findings given portable technique. Foot X-Ray 12/29/24 12:05 IMPRESSION: 1. 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 No acute osseous abnormality. Knee X-Ray 12/29/24 12:08 IMPRESSION: 1. No left knee joint effusion or acute osseous abnormality. Hip/Pelvis X-Ray 12/29/24 12:28 Impression: Left femoral neck fracture ECG Data EKG #1: Attestation: I personally reviewed and interpreted this ECG as follows: ECG completion date: 12/29/24 ECG completion time: 10:58 EKG Interpretation: tachycardia (107), sinus rhythm and left axis Critical Care Time Critical Care Time Critical Care Time: Yes Total Critical Care Time: 40 Discharge Plan Discharge Clinical Impression: Acute hypoxic respiratory failure Closed fracture of neck of left femur Qualifiers: Encounter type: initial encounter Qualified Code(s): S72.002A - Fracture of unspecified part of neck of left femur, initial encounter for closed fracture Patient Disposition: Still a Patient Condition: Guarded Prognosis
[2024-12-29 11:12] LABS: Hematocrit 45.7 % (42.0-52.0); Hemoglobin 15.2 g/dL (14.0-18.0); Immature Granulocyte Percent A 0.5 % (0-0.5); Lymphocytes Absolute Auto 0.92 K/mm3 (0.9-3.2); Mean Corpuscular HGB Conc 33.3 g/dl (32-36); Mean Corpuscular Hemoglobin 29.7 pg (26-34); Mean Corpuscular Volume 89.4 fl (80-100); Nucleated Red Blood Cells Absolute Auto 0.000 K/mm3 (0.0-0.012); Nucleated Red Blood Cells Perc 0.0 % (0.0-0.2); Platelet Count Result 256 k/mm3 (150-375); Red Blood Count 5.11 M/mm3 (4.6-6.20); White Blood Count 16.8 K/mm3 (4.5-10.0)
[2024-12-29 11:14] LABS: Alveolar/Arterial O2 Gradient 64.8 mmHg; Carboxyhemoglobin 3.9 % THb (0-2.0); Fractional Inspired Oxygen 24 %; HCO3 ABG 21.7 mEq/l (22.0-26.0); Methemoglobin ABG 0.1 %THb (0-1.5); Oxygen Content ABG 19.3 %vol (16.0-22.0); Oxygen Saturation ABG 92.6 % (95.0-100.0); PCO2 ABG 35.7 mmHg (35.0-45.0); PO2 ABG 63.8 mmHg (80.0-100.0); PO2 FiO2 Ratio Arterial Blood 2.66 %; Reduced Hemoglobin 8.3 %THb (0-5.0)
[2024-12-29 11:15] LABS: Liters per Minute 1.0 LPM; Modified Allen's Test Pass; Site Drawn RIGHT RADIAL
[2024-12-29 11:22] LABS: INR 1.2; Prothrombin Time 14.8 Seconds (11.1-14.7)
[2024-12-29 11:23] LABS: Partial Thromboplastin Time 35.8 Seconds (22.3-36.8)
[2024-12-29 11:24] LABS: Alanine Aminotransferase 18 U/L (6-50); Albumin Level 4.0 g/dL (3.5-5.1); Alkaline Phosphatase 74 U/L (38-126); Anion Gap 11 mmol/L (4-12); Aspartate Amino Transferase 31 U/L (17-59); Bilirubin,Total 0.7 mg/dL (0.2-1.3); Blood Urea Nitrogen 24 mg/dL (9-20); Calcium 9.3 mg/dL (8.4-10.2); Carbon Dioxide 21 mmol/L (22-30); Chloride 103 mmol/L (98-107); Estimated CRCL calculation 57 ml/min; Estimated Glomerular Filt Rate > 60; Glucose 105 mg/dL (65-110); Potassium 3.5 mmol/L (3.4-5.0); Sodium 135 mmol/L (137-145); Total Protein 6.8 g/dL (6.3-8.2)
[2024-12-29] MEDS: HYDROmorphone HCL INJ (*CRX) 1 MG/ML SYR 0.5 MG IV PUSH ×3 (11:26→22:36)
[2024-12-29] MEDS: ONDANSETRON INJ 4 MG/2 ML VIAL IV PUSH (11:26)
[2024-12-29 11:34] LABS: NT Pro B Type Natriuretic Pept 361 pg/mL (19.9-100); Troponin I < 0.012 ng/mL (0.000-0.034)
--- OUTSIDE RECORDS SUMMARY | 2024-12-29 11:39 | XMS_ITS | Clinical Summary ---
Author Organization [facility] [address] [facility] [place] [address] Care Team Providers Care Informatica Architect Name Role Phone Quinton Lennon MD Unavailable [phone] Simone Corral DO Unavailable [phone] Humberto Garcia MD Unavailable [phone] Kris Otero MD Unavailable London Ivy NP Primary Care Provider [phone] Allergies Active Allergy Reactions Criticality Noted Date Comments Ammonia Shortness of breath High 11/30/2021 Bleach (Sodium Hypochlorite) Shortness of breath High 11/30/2021 Doxycycline Rash Medium 06/22/2018 Levofloxacin Rash Medium 06/22/2018 Penicillins Other (See comments),Rash Medium 06/22/2018 Patient is unaware of reaction. States as a child Medications loratadine (CLARITIN) 10 mg tablet Take 1 tablet (10 mg total) by mouth daily Active calcium carbonate/vitami n D3 (CALCIUM+D ORAL) Take 1 tablet by mouth daily Active nitroglycerin (NITROSTAT) 0.[address] 1 tablet (0.4 mg total) under the tongue every 5 (five) minutes as needed for chest pain Max 3 doses. 60 tablet 3 11/26/19 22 Active [id number]-bpkh- Lmfolate-algal 27 mg iron-1.13 mg-581.92 mg capsule Take 1 tablet/capsule by mouth daily Active finasteride (PROSCAR) 5 mg tablet Take 1 tablet (5 mg total) by mouth daily 02/29/20 23 Active levothyroxine (SYNTHROID) 100 mcg tablet Take 1 tablet (100 mcg total) by mouth every morning 90 tablet 3 09/11/19 24 Active HYDROcodone-acet aminophen (NORCO) 5-325 mg per tabletIndication s:Pain Take 1 tablet by mouth every 8 (eight) hours as needed for pain Active albuterol HFA (PROVENTIL HFA,VENTOLIN HFA,PROAIR HFA) 90 mcg/actuation inhaler Inhale 2 puffs every 6 (six) hours as needed for wheezing or shortness of breath OK TO SUBSTITUTE IF ALTERNATIVE CHEAPER 1 each 5 01/16/20 24 Active metoprolol tartrate (LOPRESSOR) 25 mg immediate release tablet Take 1 tablet by mouth twice daily 180 tablet 3 02/12/20 24 Active fluticasone-umec lidin-vilanter (Trelegy Ellipta) 100-62.5-25 mcg inhalerIndicatio ns:Mixed simple and mucopurulent chronic bronchitis (HCC) Inhale 1 puff daily 180 each 06/17/19 25 Active fluticasone propionate (FLONASE) 50 mcg/actuation nasal spray Administer 1 spray into each nostril 2 (two) times a day as needed for rhinitis Active ipratropium-albu teroL (DUO-NEB) 0.5-2.5 mg/3 mL nebulizer solutionIndicati ons:Chronic obstructive pulmonary disease, unspecified COPD type (HCC) Take 3 mL by nebulization every 6 (six) hours as needed for wheezing or shortness of breath COPD J44.9 360 mL 3 10/07/19 25 Active Eliquis 5 mg tablet Take 1 tablet by mouth twice daily 180 tablet 11/01/19 25 Active atorvastatin (LIPITOR) 80 mg tablet Take 1 tablet by mouth once daily 90 tablet 11/14/19 25 Active candesartan-hydr ochlorothiazid 32-25 mg tablet Take 1 tablet by mouth once daily 100 tablet 11/25/19 25 Active albuterol HFA (PROVENTIL HFA,VENTOLIN HFA,PROAIR HFA) 90 mcg/actuation inhaler INHALE 2 PUFFS BY MOUTH EVERY 6 HOURS NEEDED FOR WHEEZING AND FOR SHORTNESS OF BREATH 18 g 2 11/25/19 25 Active varenicline tartrate (CHANTIX) 1 mg tabletIndication s:Smoking Cessation Take 0.5 tablets (0.5 mg total) by mouth 2 (two) times a day for 7 days, THEN 1 tablet (1 mg total) 2 (two) times a day. Take with full glass of water. 60 tablet 3 12/04/19 25 025 Active aspirin 81 mg chewable tablet Take 1 tablet (81 mg total) by mouth daily 025 Discontin ued(Patie nt Reported) Active Problems Problem Noted Date Diagnosed Date Grief 06/27/2024 Moderate protein-calorie malnutrition 06/20/2024 COPD exacerbation 06/19/2024 Intermittent claudication of both lower extremities due to atherosclerosis 09/11/2023 Pulmonary nodule 09/03/2023 Assessment & Plan (08/14/2024 10:32 AM CDT): The next chest CT is scheduled for later this month to follow the pulmonary nodule. Assessment & Plan (06/23/2024 12:20 PM CDT): The patient has a new 6 mm left upper lobe nodule. I will repeat another chest CT in August 2024 Assessment & Plan (12/10/2023 10:52 AM CDT): As above, another chest CT has been ordered for late December/early January 2024 Assessment & Plan (09/03/2023 10:36 AM CDT): I have ordered a CT scan for 6 months for the new pulmonary nodule Chronic fatigue 07/03/2023 Encounter for Medicare annual wellness exam 12/31 Assessment & Plan (01/16/2024 9:34 AM CDT): A(n) yearly Medicare Annual Wellness Visit has been performed today. Fahad Meier is not up to date on screening tests. He is in need of Diabetic foot exam and Cholesterol screening. He is not up to date on needed preventative vaccinations; He is in need of Influenza. We discussed healthy lifestyle habits, educational material has been given. Medications reviewed, changes documented as per the medical record and discussed with patient along with risks vs benefits. Specific topics reviewed: drugs, ETOH, and tobacco, importance of regular dental care, importance of regular exercise, importance of varied diet, limit TV, media violence, minimize junk food, and seat belts. Return in 3 months Assessment & Plan (01/15/2023 10:35 AM CDT): A(n) yearly Medicare Annual Wellness Visit has been performed today. Fahad Meier is not up to date on screening tests. He is in need of AAA Screening. He is not up to date on needed preventative vaccinations; He is in need of Tdap/Td, Influenza, Zoster, and Covid-19 (booster). We discussed healthy lifestyle habits, educational material has been given. Medications reviewed, changes documented as per the medical record and discussed with patient along with risks vs benefits. Return in 6 months Medication side effects 09/15/2022 Thoracic ascending aortic aneurysm 02/28/2022 Assessment & Plan (12/10/2023 10:51 AM CDT): This is being followed by the foundry finisher and he does have another chest CT coming up within 1 month Assessment & Plan (09/03/2023 10:35 AM CDT): Continues with CT scanning and Cardiology Assessment & Plan (03/01/2023 10:22 AM ACQUISITIONS LOGISTICS ANALYST): Being monitored by low-dose screening CT scans of the chest due to smoking history. Assessment & Plan (08/29/2022 10:53 AM CDT): Will continue to follow with Cardiology/CTS. Will complete CT for October of 2022 Assessment & Plan (02/28/2022 11:09 AM ACQUISITIONS LOGISTICS ANALYST): The patient states that he is not seen the Cardiothoracic surgeon. The patient does have another CT scan to evaluate the ascending aortic aneurysm in October of 2022. Renal lesion 02/28/2022 Assessment & Plan (12/10/2023 10:51 AM CDT): He follows with urology. Assessment & Plan (09/03/2023 10:35 AM CDT): Continues to follow with urology Assessment & Plan (03/01/2023 10:22 AM ACQUISITIONS LOGISTICS ANALYST): The patient continues to follow with the urologist. Assessment & Plan (08/29/2022 10:50 AM CDT): Will continue with urology Assessment & Plan (02/28/2022 11:09 AM ACQUISITIONS LOGISTICS ANALYST): The patient does have an appointment scheduled with the urologist. Chronic anticoagulation 01/27/2022 Mixed diabetic hyperlipidemi a associated with type 2 diabetes mellitus 11/25/2021 Primary osteoarthritis of both knees 04/06/2021 Assessment & Plan (04/09/2021 5:55 PM ACQUISITIONS LOGISTICS ANALYST): Continue with meds and plan of treatment for bilateral knees. States will watch his activity Injections into knees were done , tolerated procedure without any problems Post injection care reviewed by provider. Chronic pain of both knees 03/28/2021 Assessment & Plan (04/10/2021 12:32 PM ACQUISITIONS LOGISTICS ANALYST): Xray of bilateral knees. Set up for injections bilateral tommorow. Talked with patient about knee injections, med, procedure, complications, and outcomes. States understands and would like to proceed with injections. Assessment & Plan (04/06/2021 9:18 AM ACQUISITIONS LOGISTICS ANALYST): Note pain in bilateral knees is the same. Will proceed with bilateral knee injections today. Post injection Instructions Warm packs to knees tonight. Watch for any signs of infection, increased pain, swelling, or discoloration. Call in one week with update on knees Assessment & Plan (03/28/2021 6:30 PM ACQUISITIONS LOGISTICS ANALYST): Xray of bilateral knees today Continue with medication as ordered. Talked about getting better shoes for support. (esperanza Pena trainangus) Talked about getting injections into knee and possible hips for arthritic pain. KARTHIK on CPAP 03/22/2021 Assessment & Plan (08/14/2024 10:32 AM CDT): The patient continues to benefit from CPAP at 6 cm water pressure for ongoing symptoms KARTHIK. His DME supplier is [employer]. Assessment & Plan (06/23/2024 12:19 PM CDT): He continues on CPAP at 6 cm water pressure for ongoing symptoms KARTHIK. His DME supplier is [employer]. Assessment & Plan (12/10/2023 10:49 AM CDT): The patient received a new CPAP unit about 6 weeks ago. He continues to be compliant with therapy and is benefitting from its use at 6 cm water pressure. His DME supplier is [employer]. Assessment & Plan (09/03/2023 10:37 AM CDT): Due to continued symptoms, the patient will continue CPAP at 8 cm water pressure. I have ordered the patient a new CPAP set at 8 cm water pressure with heated humidity and a full set of supplies. Ramp 7 cm water pressure for 15 minutes. I ordered a ResMed CPAP. DME is [facility] The patient is aware that he may have to recertify for CPAP therapy for insurance reasons. The patient would be willing to complete an in-home nocturnal polysomnogram if necessary. Assessment & Plan (03/01/2023 10:21 AM ACQUISITIONS LOGISTICS ANALYST): Will continue with CPAP therapy at 8 cm water pressure. [employer]. I have ordered a new set his supplies in the patient is in need of a filter. Assessment & Plan (08/29/2022 10:51 AM CDT): The patient will continue CPAP therapy at 8 cm water pressure. Denied need for supplies. DME [employer] Assessment & Plan (02/28/2022 11:08 AM ACQUISITIONS LOGISTICS ANALYST): Will continue with CPAP therapy at 8 cm water pressure. DME [employer]. The patient has received his new CPAP from [employer]. Assessment & Plan (11/22/2021 1:37 PM CDT): Will continue with CPAP therapy at 8 cm water pressure. I have ordered a full set of supplies. DME [employer]. The patient was also shown pictures of external filters that he may add to his CPAP machine. Assessment & Plan (04/10/2021 12:35 PM ACQUISITIONS LOGISTICS ANALYST): Talked about CPAP machine and when the last check on the machine was done. States has been awhile since last sleep test and machine titration. Encouraged to get this done this year. Continue with CPAP as ordered. Sleep hygiene reviewed. Assessment & Plan (03/22/2021 9:56 AM ACQUISITIONS LOGISTICS ANALYST): The patient continues to benefit from CPAP at 8 cm water pressure. He has registered for a new CPAP unit through [employer]. His DME supplier is [facility]. He will follow-up with me in 1 year. PLMD (periodic limb movement disorder) Assessment & Plan (08/14/2024 10:32 AM CDT): The patient is asymptomatic with respect to the PLMs and is on no medication for the PLMs. Assessment & Plan (06/23/2024 12:19 PM CDT): He is asymptomatic with respect to the PLMS and is on no medication for the PLMS. Assessment & Plan (12/10/2023 10:49 AM CDT): He is asymptomatic with respect to the PLMS and is on no medication for the PLMS. Assessment & Plan (09/03/2023 10:36 AM CDT): Currently asymptomatic Assessment & Plan (03/01/2023 10:21 AM ACQUISITIONS LOGISTICS ANALYST): The patient denies that limbs are moving at night when he sleeps. Assessment & Plan (08/29/2022 10:51 AM CDT): Asymptomatic Assessment & Plan (02/28/2022 11:08 AM ACQUISITIONS LOGISTICS ANALYST): The patient is also on pain medication due to his chronic pain and arthritis. Assessment & Plan (11/22/2021 1:41 PM CDT): The patient is also on pain medication due to his chronic pain and arthritis. Assessment & Plan (03/22/2021 9:56 AM ACQUISITIONS LOGISTICS ANALYST): The Requip continues to benefit the patient at 0.5 mg at bedtime. He is not aware that his legs are moving at night. Centrilobular emphysema 03/22/2021 Assessment & Plan (08/14/2024 10:33 AM CDT): The patient has stage IV COPD. He is breathing comfortably and did not require any supplemental oxygen with activity. He continues on Trelegy 1 puff daily and he is using albuterol via the MDI or nebulizer 3-4 times per day. We did discuss possibly adding Ohtuvayre at some point Assessment & Plan (06/23/2024 12:19 PM CDT): The patient has a history of stage III COPD. I will order new PFTs since his last PFTs were from 2021. He continues on Trelegy 1 puff daily and he will complete the antibiotics and steroids following the COPD exacerbation. He will follow up here in 1 month. Assessment & Plan (12/10/2023 10:50 AM CDT): The patient is breathing has been comfortable with Trelegy 1 puff daily and has an albuterol inhaler to use on a p.r.n. basis. I did give him a sample of Trelegy and also 1 box of the Eliquis 5 mg tablets. His foundry finisher has prescribed the Eliquis. Assessment & Plan (09/03/2023 10:36 AM CDT): Due to continued symptoms, the patient will continue Trelegy 1 puff daily and rinse mouth after use. Patient has a nebulizer he uses on a p.r.n. basis. He will continue with his allergy medication Assessment & Plan (03/01/2023 10:21 AM ACQUISITIONS LOGISTICS ANALYST): Patient continue to use Trelegy one inhalation once a day. Patient continue with DuoNebs as needed up to 4 times a day for shortness of breath. I have sent a prescription to the pharmacy for DuoNebs. I have provided the patient with samples of Trelegy. Assessment & Plan (08/29/2022 10:52 AM CDT): The patient will continue Trelegy 1 puff daily. Patient has an albuterol inhaler to use on a p.r.n. basis and up to 4 times a day as needed for symptom control. The patient also will continue with his allergy medication regimen Assessment & Plan (07/11/2022 4:01 PM CDT): Prednisone x 3 days (for nascent exacerbation) Continuing current regimen otherwise, though I am considering if you might respond better to Breztri (a different COPD medication); sample given (2 puffs, twice a day) and hold Trelegy while using Breztri. Assessment & Plan (02/28/2022 11:07 AM ACQUISITIONS LOGISTICS ANALYST): The patient was given samples of Trelegy. Patient continue to use the Trelegy one inhalation once a day. Patient continue to use his albuterol inhaler as needed up to 4 times a day for shortness of breath. Assessment & Plan (11/22/2021 2:06 PM CDT): The patient was provided a sample of Anoro 1 puff daily. Patient was instructed not to continue the Trelegy while on trial. The patient was instructed to notify pharmacy/insurance to find a cheaper option for the Trelegy. He will call into the office at when he needs to change the medication. Patient has an albuterol inhaler that he may use on a p.r.n. basis and up to 4 times a day as needed for symptom control. I have ordered a full PFT and 6 minute walk test. Patient will continue on allergy medication regimen Assessment & Plan (03/28/2021 6:36 PM ACQUISITIONS LOGISTICS ANALYST): Continue with meds as ordered. Continue with pulmonary exercises for diaphragmic breathing Strongly suggested stop smoking. Kenalog 40mg IM today. Assessment & Plan (03/22/2021 9:56 AM ACQUISITIONS LOGISTICS ANALYST): The patient continues to smoke. His breathing is at baseline with the use of Trelegy 1 puff daily and albuterol MDI 2 puffs b.i.d.. Tobacco abuse 03/22/2021 Assessment & Plan (08/14/2024 10:31 AM CDT): The patient is still smoking about 1/2 pack of cigarettes per day and I did encourage him to continue to cut down on his tobacco intake and try to quit. He states that his primary care physician is working with him regarding quitting smoking. Assessment & Plan (06/23/2024 12:20 PM CDT): The patient has decreased his tobacco use down to about 1/2 pack of cigarettes per day. Assessment & Plan (12/10/2023 10:50 AM CDT): He continues to smoke 1 pack of cigarettes per day and has done so for 30 years. I did encourage him to try to quit smoking. Assessment & Plan (09/03/2023 10:35 AM CDT): Continues to smoke 1 pack per day for 30 years Assessment & Plan (03/01/2023 10:22 AM ACQUISITIONS LOGISTICS ANALYST): The patient was once again encouraged to decrease the amount of cigarettes to a goal of quitting. The patient is currently smoking one pack cigarettes a day. Assessment & Plan (08/29/2022 10:51 AM CDT): Continues to smoke 1 pack per day for 35 years. Patient will have a CT scan completed October of 2022 Assessment & Plan (02/28/2022 11:08 AM ACQUISITIONS LOGISTICS ANALYST): The patient has a low-dose screening CT scan ordered for October of 2022. The patient was once again encouraged to decrease his smoking to the goal quitting. Assessment & Plan (11/22/2021 1:39 PM CDT): Patient continues to smoke 1 pack of cigarettes per day for 40 years. I have ordered a lung cancer screening CT for October of 2022. The patient is aware that he needs to decreased his cigarette use an ultimate goal of quitting Assessment & Plan (03/28/2021 6:33 PM ACQUISITIONS LOGISTICS ANALYST): Talked about reducing his smoking and trying to stop. [employer] requesting chest xray to be taken, 2 views. Continue with medication as directed. Goal set to be smoke free by next year. Assessment & Plan (03/22/2021 9:55 AM ACQUISITIONS LOGISTICS ANALYST): I encouraged the patient to quit smoking. He is a candidate for a screening chest CT for lung cancer. He did not want me to order this but wants to talk with his primary care provider first.. Hypertension associated with diabetes 01/11/2021 Assessment & Plan (12/24/2021 1:02 PM CDT): Please avoid exposure to vaping in the house due to chronic lung disease. Likely the lung doctor would concur BP is controlled As the a1c was in good stead, will hold off until March I did note mildly elevated white count (may be related to Trelegy) on last set of blood counts. If symptoms/condition worsens we may need to check again Type 2 diabetes mellitus wit hout complication, without long-term current use of insulin 01/11/2021 Assessment & Plan (04/10/2021 12:29 PM ACQUISITIONS LOGISTICS ANALYST): Continue with medications as ordered. Continue with diet and exercise A1C every 4 months. Daily foot check. Monofilament check once a year. Coronary artery disease of n ative artery of [place] heart with stable angina pectoris 06/24/2018 Atrial fibrillation 06/22/2018 Chronic bronchitis 10/16/2016 Assessment & Plan (04/18/2022 11:46 AM ACQUISITIONS LOGISTICS ANALYST): Sx have improved per patient, encouraged to finish out his oral steroid and abx therapy. Also suggested Mucinex to aid in clearing the mucous. Refilling Trelogy for patient. Extending oral steroid x 3 days d/t lung sounds. Patient to reach out if sx don't continue to improve/worsen as we will need to repeat CXR if that is the case. Resolved Problems Problem Noted Date Diagnosed Date Resolved Date Mixed hyperlipidemia 01/11/2021 022 NSTEMI (non-ST elevated myoc ardial infarction) 06/22/2018 01/16/2024 Smoking 10/16/2016 09/03/2023 Assessment & Plan (04/10/2021 12:38 PM ACQUISITIONS LOGISTICS ANALYST): Talked about smoking and trying to stop. States he is wanting to do this in 2021. Talked about options to smoking cessation, info given. Will try and cut back on cigarettes at this time. Encounters Date Type Department Care Team Description 12/03/2024 11:00 AM CDT Office Visit [facility] [address] [place] [phone] Kris Otero MD Paroxysmal atrial fibrillation (HCC) (Primary Dx); Chronic anticoagulation; Essential hypertension; KARTHIK on CPAP; Tobacco abuse 12/03/2024 Results Follow-Up [facility] at [address] [phone] Chest WO Contrast F/U Lung Screen Protocol 11/24/2024 10:09 AM CDT - 11/24/2024 11:59 PM CDT Hospital Encounter [facility] [address] [place] [address] Centrilobular emphysema (HCC) Discharge Disposition: Discharge to home or self care 11/20/2024 11:45 AM CDT Office Visit [facility] [address] [place] [phone] Marvel Gaines MD Bilateral hip pain (Primary Dx); Arthritis of lumbar spine 11/20/2024 11:40 AM CDT - 11/20/2024 11:59 PM CDT Hospital Encounter [facility] [address] [place] [address] Discharge Disposition: Discharge to home or self care 11/20/2024 7:43 AM CDT - 11/20/2024 11:59 PM CDT Hospital Encounter [facility] [address] [place] [address] Discharge Disposition: Discharge to home or self care 10/04/2024 Telephone [facility] [place] [address] [place] [address] Humberto Garcia MD Med Refill from Last 3 Months Immunizations Immunization Administration Dates Next Due Influenza, Quad, Adjuvantate d, Intramuscular 12/20/2021,12/09/2019 Influenza, Quadrivalent, Hig h Dose, Preservative Free, Intrr 01/01/2023,01/14/2021,02/06/2019,12/30 Influenza, Trivalent, High D ose, Split, Preservative Free, Intramuscular 01/16/2024,02/06/2019,12/30/2014 Influenza, Trivalent, Preser vative Free, Intramuscular 12/09/2019,01/27/2016 Influenza, Unspecified 11/01/2022(Deferr ed: Patient Refused),04/02/2022(Deferred: Patient Refused),04/02/2021(Deferred: Patient Refused),02/10/2013,01/10/2012 Moderna Sars-cov-2 Bivalent Vaccine 50 Mcg/0.5 mL (12+ YRS)-Blue/Maguire 12/20/2021 Pneumococcal Conjugate PCV 13 02/06/2019, 016,12/30/2014 Pneumococcal Conjugate Pcv20 01/01/2023 Pneumococcal Polysaccharide PPV23 02/06/2019 RSV Vaccine, Pref, Recombina nt, Subunit, Adjuvanted, PF, IM (Arexvy) 02/15/2023 Tdap 09/29/2023 ZOSTER LIVE 07/01/2012 ZOSTER Recombinant 05/11/2023,02/15/2023 Surgical History Surgery Date Site/Laterality Comments LEG SURGERY BLADDER SURGERY Medical History Medical History Date Comments High cholesterol Atrial fibrillation (HCC) Bladder cancer (HCC) Chronic kidney disease CAD (coronary artery disease) Hypertension Diabetes mellitus Asthma NSTEMI (non-ST elevated myocardial infarction) ( HCC) 06/22/2018 Family History Medical History Relation Name Comments Stroke Brother 1 Jyoti Meier Diabetes Brother 2 Gene Heart attack Brother 2 Gene Heart disease Brother 2 Gene Stroke Brother 2 Gene Heart disease Father Warden Meier Hypertension Father Warden Meier Heart disease Mother Denisha Meier Diabetes Son Genaro Meier Relation Name Status Comments Brother 1 Jyoti Meier Alive Brother 2 Lux Meier Father Warden Meier Mother Denisha Meier Son Genaro Meier Social History Tobacco Use Types Packs/Day Years Used Date Smoking Tobacco: Every Day Cigarettes 0.5 57 Smokeless Tobacco: Never Tobacco Cessation:Ready to Q uit: Not Asked; Counseling Given: Not Answered Comments:30 years [facility] Utilities Answer Date Recorded In the past 12 months has [employer], gas, oil, or water [employer] threatened to shut off services in your [...] 06/20/2024 How often do you attend chur or buddhism services? Never 06/20/2024 Do you belong to any clubs o r organizations such as scientology groups, unions, fraternal or athletic groups, or [...] any time in the past 12 m [facility], were you homeless or living in a [place] health [place] facility (including now)? No 06/20/2024 Personal Safety Answer Date Recorded Have you ever been in or are you currently in a harmful physical or emotional relationship or is someone making you feel afraid or unsafe? Denies 06/19/2024 Sex and Gender Information Value Date Recorded Sex Assigned at Not on file Legal Sex Male 7:41 PM ACQUISITIONS LOGISTICS ANALYST Gender Identity Male 03/29/2021 6:23 PM ACQUISITIONS LOGISTICS ANALYST Sexual Orientation Not on file Obstetrics History Last Filed Vital Signs Vital Sign Reading Time Taken Comments Blood Pressure 108/66 12/03/2024 10:45 AM CDT Pulse 84 12/03/2024 10:45 AM CDT Temperature 36.1 C (96.9 F) 08/14/2024 10:08 AM CDT Respiratory Rate 18 08/14/2024 10:08 AM CDT Oxygen Saturation 95% 12/03/2024 10:45 AM CDT Inhaled Oxygen Concentration - - Weight 73.9 kg (163 lb) 12/03/2024 10:45 AM CDT Height 170.2 cm (5' 7) 12/03/2024 10:45 AM CDT Body Mass Index 25.53 12/03/2024 10:45 AM CDT Plan of Treatment Health Maintenance Due Date Last Done Comments Hepatitis B Screening 06/13/1963 Hemoglobin A1C 10/15/2024 04/17/2024, 12/31, 10/18/2023, Additional history exists Covid-19 Vaccine ( season) 2024 01/01/2023, 12/20/2021, 08/13/2021, Additional history exists Influenza Vaccine (#1) 2024 , 01/01/2023, 12/20/2021, Additional history exists Lung Cancer Screening 12/24/2024 11/24/2024 , 08/27/2024, 05/13/2024, Additional history exists Albumin Creatinine Ratio, Urine 01/15/2025 01/16/2024, 04/17/2023, 04/10/2022, Additional history exists Dilated Eye Exam 01/15/2025 09/13/2021, 09/13/2021 P ostponed from 09/14/2023 (Patient declined, but will receive in the future) Well Visit 65+ 01/15/2025 01/16/2024, 01/15/2023 Depression Screening 04/17/2025 04/17/2024, 01/16/2024, 10/16/2023, Additional history exists Foot Exam 04/17/2025 04/17/2024, 04/02, 04/10/2022 Lipid Panel 04/17/2025 04/17/2024, 07/01, 04/17/2023, Additional history exists Fall Risk Assessment 06/20/2025 06/20/2024, 04/17/2024, 01/16/2024, Additional history exists eGFR 06/20/2025 06/20/2024, 06/01, 04/17/2024, Additional history exists DTaP/Tdap/Td Vaccine (2 - Td or Tdap) 09/28/2033 09/29/2023 Hepatitis C Screening Completed 04/10/2022 Colon Cancer Screening-CT Colonography Discontinued 07/17/2022 Colon Cancer Screening-Colonoscopy Discontinued 07/17/2022, 07/17/2012 Colon Cancer Screening-DNA Stool Discontinued 07/17/2022 Colon Cancer Screening-FIT Discontinued 07/17/2022 Colon Cancer Screening-FOBT Discontinued 07/17/2022 Colon Cancer Screening-Sigmoidoscopy Discontinued 07/17/2022 Colorectal Cancer Screening Discontinued Pneumococcal vaccine 65+ Completed 023, 02/06/2019, 02/06/2019, Additional history exists Abdominal Aortic Aneurysm (AAA) Screen Completed 01/30/2023 Zoster Vaccine Completed 05/11/2023, 01/31, 07/01/2012 Procedures Procedure Name Priority Date/Time Associated Diagnosis Comments CT CHEST WO CONTRAST F/U LUNG SCREEN PROTOCOL Schedule Routine, Read Routine (OP Routine) 11/24/2024 10:20 AM CDT Centrilobular emphysema (HCC) EGFR Routine 06/20/2024 5:39 AM CDT HEMOGLOBIN A1C Routine 04/17/2024 9:14 AM ACQUISITIONS LOGISTICS ANALYST Hypertension associated with diabetes (HCC) LIPID PANEL Routine 04/17/2024 9:14 AM ACQUISITIONS LOGISTICS ANALYST Mixed diabetic hyperlipidemia associated with type 2 diabetes mellitus (HCC) ALBUMIN CREATININE RATIO, URINE Routine 01/16/2024 9:49 AM CDT Hypertension associated with diabetes (HCC) Mixed diabetic hyperlipidemia associated with type 2 diabetes mellitus (HCC) US ABDOMINAL AORTIC ANEURYSM SCREENING Schedule Routine, Read Routine (OP Routine) 01/30/2023 8:22 AM CDT Screening for AAA (aortic abdominal aneurysm) COLONOSCOPY Routine 07/17/2022 HEPATITIS C ANTIBODY Routine 04/10/2022 11:06 AM ACQUISITIONS LOGISTICS ANALYST Encounter for hepatitis C screening test for low risk patient DIABETES EYE EXAM Routine 09/13/2021 from Last 3 Months or Most Recently Relevant to Health Maintenance Results * CT Chest WO Contrast F/U Lung Screen Protocol (11/24/2024 10:20 AM CDT) Anatomical Region Laterality Modality Chest N/A Computed Tomogra phy 12/03/2024 1:54 PM CDT Narrative 12/03/2024 1:59 PM CDT EXAM DESCRIPTION: CT CHEST WO CONTRAST F/U LUNG SCREEN PROTOCOL REASON FOR STUDY: Screening CT of the chest in a current smoker with a 54 pack year smoking history. Additional history: Bladder cancer. TECHNIQUE: Low dose CT scan of the chest was performed without intravenous contrast using helical scanning technique. The exam extends from the lung apices through the lung bases. Automatic exposure control was used as a dose optimization technique. NOTE: This study was performed for the specific purposes of lung cancer screening and is not an alternative to diagnostic chest CT. RADIATION DOSE: CT dose index volume (CTDIvol) = 2.33 mGy COMPARISON: 08/27/2024 FINDINGS: SMOKING RELATED LUNG DISEASE: Mild emphysematous changes apparent. Minimal apical parenchymal pleural thickening is seen bilaterally. LUNG NODULES: There is a stable pleural-based nodule between the right upper and middle lobes (image 194) measuring 3 mm. An 8 mm wedge-shaped ground-glass opacity in the left upper lobe (image 70) has a 3.5 mm solid nodule which appears stable. CORONARY ARTERY CALCIFICATION: Present OTHER: Bibasilar interstitial and airspace opacities persist and appear infectious/inflammatory. There are numerous calcified pulmonary granulomas. The heart appears normal in size. No pneumothorax or pleural effusion is seen. There are scattered subcentimeter mediastinal lymph nodes. A stone is noted in the gallbladder. There are cysts in both kidneys including what appears to be a hemorrhagic/proteinaceous cyst on the right. IMPRESSION: 1. Interstitial airspace opacities in both lung bases which appears infectious/inflammatory. 2. Stable pulmonary nodules. 3. Evidence of old granulomatous disease. 4. Gallstone. 5. Bilateral renal cysts with the apparent hemorrhagic/proteinaceous cyst on the right. Lung-RADS category 0: Obscured by acute abnormality. Recommendation: Low dose CT of chest in 1-2 months. THIS IS AN ELECTRONICALLY VERIFIED FINAL REPORT 12/03/2024 1:59 PM - Electronically signed by Juan M Wagner M.D. BS: BS Report ID: [id number] Reading Location: [place] [address] us Quinton Lennon MD IMG CT PROCEDURES Final Res ult * eGFR (06/20/2024 5:39 AM CDT) eGFR 88 >=60 mL/min/1. 73 m2 Comment: Interpretive Data Reference Interval Normal >/= 90 mL/min/1.73m2 Mildly decreased* 60 - 89 mL/min/1.73m2 Mildly to moderately decreased 45 - 59 mL/min/1.73m2 Moderately to severely decreased 30 - 44 mL/min/1.73m2 Severely decreased 15 - 29 mL/min/1.73m2 Kidney Failure < 15 mL/min/1.73m2 *Relative to young adult level Estimated glomerular filtration rate is determined by the 2020 CKD-EPI equation recommended by the National Kidney Foundation (A Unifying Approach to GFR Estimation: Recommendations of the NKF-ASK Task Force on Reassessing the Inclusion of Race in Diagnosing Kidney Disease, JASN 2020). The CKD-EPI equation should not be used for patients with unstable renal function and has not been validated in children and those over 70. Current interpretive data was last reviewed 2021. Testing performed by: [facility], [address] [place] [address]., [address] Blood 06/20/2024 5:39 AM CDT 06/20/2024 5:59 AM CDT us Thony Ledezma MD LAB BLOOD ORDERABLES Final Result [facility]LEE [address] [facility] Department [place] [address] * (ABNORMAL) Hemoglobin A1c (04/17/2024 9:14 AM ACQUISITIONS LOGISTICS ANALYST) Hgb A1C 5.8(H) 4.0 - 5.6 % Estimated Average Glucose 120 mg/dL ASHLEE PATEL Comment: The ADA recommends reporting an estimated Average Glucose (eAG) with all Hemoglobin A1c results using the equation derived from a study of 507 normal and diabetic adults. Minority populations were underrepresented and children were not included. (Diabetes Care 31:2549-3382, 2008). The eAG is not equivalent to a fasting glucose. Blood 04/17/2024 9:14 AM ACQUISITIONS LOGISTICS ANALYST 04/17/2024 4:46 PM ACQUISITIONS LOGISTICS ANALYST us Quinton Lennon MD LAB BLOOD ORDERABLES Final Result A[facility]LEE PATEL [address] Department [place] [address] * (ABNORMAL) Lipid panel (04/17/2024 9:14 AM ACQUISITIONS LOGISTICS ANALYST) Cholesterol 116 30 - 199 mg/dL Comment: Interpretive Data Ages < or = 19 years Acceptable: <170 mg/dL Borderline high: 170-199 mg/dL High: >or= 200 mg/dL Ages > or = 20 years Desirable: <200 mg/dL Borderline high: 200-239 mg/dL High: >or= 240 mg/dL Literature References: 1. Expert Panel on Integrated Guidelines for Cardiovascular Health and Risk Reduction in Children and Adolescents. Pediatrics 2011;128:S213 2. NCEP Expert Panel. Circulation 2004;110:227 Current Interpretive Data was last revised on 2017. Triglycerides 155(H) <=149 mg/dL ASHLEE PATEL Comment: Interpretive Data Ages < or = 9 years Acceptable: <75 mg/dL Borderline high: 75-99 mg/dL High: >or= 100 mg/dL Ages 10 to 20 years Acceptable: <90 mg/dL Borderline high: 90-129 mg/dL High: >or= 130 mg/dL Ages > or = 20 years Desirable: <150 mg/dL Borderline high: 150-199 mg/dL High: 200-499 mg/dL Very high: >or= 499 mg/dL Literature References: 1. Expert Panel on Integrated Guidelines for Cardiovascular Health and Risk Reduction in Children and Adolescents. Pediatrics 2011;128:S213 2. NCEP Expert Panel. Circulation 2004;110:227 Current Interpretive Data was last revised on 2017. HDL 34(L) >=40 mg/dL ASHLEE PATEL Comment: Interpretive Data Ages < or = 19 years Acceptable: >45 mg/dL Borderline low: 40-45 mg/dL Low: <40 mg/dL Ages > or = 20 years Desirable: >or= 60 mg/dL Low: <40 mg/dL Literature References: 1. Expert Panel on Integrated Guidelines for Cardiovascular Health and Risk Reduction in Children and Adolescents. Pediatrics 2011;128:S213 2. NCEP Expert Panel. Circulation 2004;110:227 Current Interpretive Data was last revised on 2017. LDL, calculated 55 <=129 mg/dL ASHLEE PATEL Comment: Interpretive Data Ages < or = 19 years Acceptable: <110 mg/dL Borderline high: 110-129 mg/dL High: >or= 130 mg/dL Ages > or = 20 years Optimal: <100 mg/dL Near optimal: 100-129 mg/dL Borderline high: 130-159 mg/dL High: >160 mg/dL Calculated using the Brent LDL-C estimating equation. This equation was implemented on 2023. Prior to this date LDL-C was estimated using the Friedewald equation. Literature References: 1. Expert Panel on Integrated Guidelines for Cardiovascular Health and Risk Reduction in Children and Adolescents. Pediatrics 2011;128:S213 2. NCEP Expert Panel. Circulation 2004;110:227 3. Brent Moncada al. ESTEBAN Cardiol. 2019July 31;5(5):540-548. doi: 10.1001/jamacardio.2020.0013 Current Interpretive Data was last revised on 2023. Non-HDL Cholesterol 82 mg/dL ASHLEE PATEL Comment: Interpretive Data Ages < or = 19 years Acceptable: <120 mg/dL Borderline high: 120-144 mg/dL High: >145 mg/dL Ages > or = 20 years When triglycerides are >200 mg/dL, Non-HDL cholesterol is a secondary target of therapy with treatment goals that are 30 mg/dL greater than the LDL cholesterol target. Literature References: 1. Expert Panel on Integrated Guidelines for Cardiovascular Health and Risk Reduction in Children and Adolescents. Pediatrics 2011;128:S213 2. NCEP Expert Panel. Circulation 2004;110:227 Current Interpretive Data was last revised on 2017. Chol/HDL ratio 3 [facility] Blood 04/17/2024 9:14 AM ACQUISITIONS LOGISTICS ANALYST 04/17/2024 4:46 PM ACQUISITIONS LOGISTICS ANALYST Quinton Lennon MD LAB BLOOD ORDERABLES Final Result Performing Organization Address [facility] de Phone Number [facility] [address] [place] [address] * Albumin Creatinine Ratio, Urine (01/16/2024 9:49 AM CDT) Albumin Ur 16.0 mg/L Comment: Interpretive Data No reference range established. Current interpretive data was last revised 2018. Creatinine Ur 116.9 mg/dL [facility] Comment: Interpretive Data No reference range established. Current interpretive data was last revised 2018. Albumin Creatinine Ratio, Ur 14 1 - 29 mg/g [facility] Urine 01/16/2024 9:49 AM CDT 01/16/2024 6:46 PM CDT Quinton Lennon MD LAB URINE ORDERABLES Final Result Performing Organization Address [facility] Phone Number ASHLEE [address] [place] [address] * US Abdominal Aortic Aneurysm Screening (01/30/2023 8:22 AM CDT) Anatomical Region Laterality Modality Abdomen Ultrasound 01/30/2023 3:12 PM CDT Narrative 01/30/2023 3:13 PM CDT EXAM DESCRIPTION: US ABDOMINAL AORTIC ANEURYSM SCREENING REASON FOR STUDY: screening for AAA TECHNIQUE: Grayscale images acquired of the aorta and stored on PACS. Selected color Doppler and spectral images recorded. COMPARISON: None. FINDINGS: AORTIC CALIBER MAXIMAL PROXIMAL: 2.5 x 2.8 cm. MID: 2.1 x 2.2 cm. DISTAL: 1.8 x 2.1 cm. ILIAC DIAMETER RIGHT: 0.8 cm. LEFT: 0.7 cm. OTHER: No other significant finding. IMPRESSION: No abdominal aortic aneurysm. REFERENCE: Please see below follow up recommendations for abdominal aortic aneurysm surveillance per Society for Vascular Surgery Guidelines: < 2.5 cm No follow up necessary 2.52.9 cm Recommended ultrasound follow up every 10 years 3.0-3.9 cm Recommended ultrasound follow up every 3 years 4.0-4.9 cm Recommended ultrasound follow up every 12 months, vascular surgery consult 5.0-5.4 cm Recommended ultrasound follow up every 6 months, vascular surgery consult >= 5.5 cm Referral to vascular surgeon Based upon Society for Vascular Surgery Guidelines: J Vasc Surgery 2008 50: s2s49; updated Apr 2017 J Vasc Surgery 67:277 THIS IS AN ELECTRONICALLY VERIFIED FINAL REPORT 01/30/2023 3:13 PM - Electronically signed by Gio Gao M.D. CH: AMANDA Report ID: [id number] Reading Location: [id number] Procedure Note Gio Gao Jr., MD - 01/30/2023 EXAM DESCRIPTION: US ABDOMINAL AORTIC ANEURYSM SCREENING REASON FOR STUDY: screening for AAA TECHNIQUE: Grayscale images acquired of the aorta and stored on PACS.Selected color Doppler and spectral images recorded. COMPARISON: None. FINDINGS: AORTIC CALIBER MAXIMAL PROXIMAL: 2.5 x 2.8 cm. MID: 2.1 x 2.2 cm. DISTAL: 1.8 x 2.1 cm. ILIAC DIAMETER RIGHT: 0.8 cm. LEFT: 0.7 cm. OTHER: No other significant finding. IMPRESSION: No abdominal aortic aneurysm. REFERENCE: Please see below follow up recommendations for abdominal aortic aneurysm surveillance per Society for Vascular Surgery Guidelines: < 2.5 cm No follow up necessary 2.52.9 cm Recommended ultrasound follow up every 10 years 3.0-3.9 cm Recommended ultrasound follow up every 3 years 4.0-4.9 cm Recommended ultrasound follow up every 12 months, vascularsurgery consult 5.0-5.4 cm Recommended ultrasound follow up every 6 months, vascularsurgery consult >= 5.5 cm Referral to vascular surgeon Based upon Society for Vascular Surgery Guidelines: J Vasc Surgery 50: s2s49; updated Apr 2017 J Vasc Surgery 67:277 THIS IS AN ELECTRONICALLY VERIFIED FINAL REPORT 01/30/2023 3:13 PM - Electronically signed by Gio Gao M.D. CH: AMANDA Report ID: [id number] Reading Location: [place] [address] Result [facility] Quinton Lennon MD IMG US PROCEDURES Final Res ult * Colonoscopy (07/17/2022) Anatomical Region Laterality Modality Other Result [facility] Historical [facility] GRUBBS ENDOSCOPY PROCEDURES Chey l Result * Hepatitis C antibody (04/10/2022 11:06 AM ACQUISITIONS LOGISTICS ANALYST) Hep C Ab Nonreactive Nonreactive ASLHEE PATEL Comment: Interpretive Data Nonreactive: Antibodies to HCV not detected. Does NOT exclude the possibility of recent exposure to HCV. Equivocal: Equivocal for HCV antibodies. Supplemental molecular testing will be automatically performed to determine infection status in accordance with current CDC screening recommendations. Reactive: Positive for HCV antibodies. This may represent current or past HCV infection. Supplemental molecular testing will be automatically performed to determine current infection status in accordance with current CDC screening recommendations. Interpretive data was last revised on 2019. Blood 04/10/2022 11:0 6 AM ACQUISITIONS LOGISTICS ANALYST 04/10/2022 2:38 PM ACQUISITIONS LOGISTICS ANALYST Result [facility] Quinton Lennon MD LAB MICROBIOLOGY - GENERAL ORDERABLES Edited Result - Final ASHLEE [address] Department [place] [address] * HM DIABETES EYE EXAM (09/13/2021) Result [facility] Historical Provider HEALTH MAINTENANCE Final Result from Last 3 Months or Most Recently Relevant to Health Maintenance Insurance [employer] MEDICARE [address]PO [address] [place] [address] MEDICARE [facility] Advance Directives For more information, please contact: [phone] * Full Code (Latest Code Status on File) Date Activated Date Inactivated Comments 06/19/2024 5:49 PM 06/20/2024 8:57 PM Care Teams Informatica Architect Relationship Specialty Start Date End Date London Ivy NP [address] [facility] [address] [place] [address] PCP - General Nurse Practitioner 12/03/24 Quinton Lennon MD [address] [place] [address] Family Medicine 11/23/21 Simone Corral DO [address] [facility] [address] [facility] [address] [place] [address] Referring Physician Cardiology 09/20/21 Humberto Garcia MD [address] [place] [address] Consulting Physician Pulmonary Disease 01/16/24 Kris Otero MD [address] [facility] [address] [place], [place] [address] Consulting Physician Cardiology 01/16/24 [facility] - [address] [address] Pain Management 04/17/24
--- OUTSIDE RECORDS SUMMARY | 2024-12-29 11:39 | XMS_ITS | Encounter Summary ---
Author Organization [facility] Facility Care Team Providers Care Machine Shop Apprentice Name Role Phone Nicko Munoz MD Primary Care Provider [phone] London Ivy SLURRY TANK OPERATOR Primary Care Provider [phone] Quinton Lennon MD Primary Care Provider Quinton Lennon MD Primary Care Provider [phone] Quinton Lennon MD Unavailable [phone] Simone Corral DO Unavailable [phone] Kashif Curran MD Unavailable Dodie Ibrahim NP Unavailable [phone] Britany Dominguez MD Unavailable [phone] Humberto Garcia MD Unavailable [phone] Kris Otero MD Unavailable London Ivy SLURRY TANK OPERATOR Primary Care Provider [phone] Quinton Lennon MD Primary Care Provider [phone] London Ivy SLURRY TANK OPERATOR Primary Care Provider [phone] Encounter Details Date Type Department Care Team (Latest Contact Info) Description 02/05/2017 Orders Only [facility]INCONV Provider, Historical, MD [address] [place], [place] [id number] Social History Tobacco Use Types Packs/Day Years Used Date Smoking Tobacco: Never Assessed Sex and Gender Information Value Date Recorded Sex Assigned at Not on file Legal Sex Male 7:41 PM RECORD CHANGER TESTER Gender Identity Male 03/29/2021 6:23 PM RECORD CHANGER TESTER Sexual Orientation Not on file documented as of this encounter Plan of Treatment Not on file documented as of this encounter Procedures Procedure Name Priority Date/Time Associated Diagnosis Comments SCAN - LABS 02/05/2017 12:00 AM RECORD CHANGER TESTER documented in this encounter Results * SCAN - LABS (02/05/2017 12:00 AM RECORD CHANGER TESTER) Narrative 02/05/2017 12:00 AM RECORD CHANGER TESTER Ordered by an unspecified provider. Historical Provider Final Res ult documented in this encounter Visit Diagnoses Not on filedocumented in this encounter Additional Health Concerns Infection Onset Date Last Indicated Resolved Time COVID: Suspected 11/09/2021 11/09/2021 11/10/2021 3:05 AM CDT COVID: Suspected 12/11/2021 12/11/2021 12/11/2021 10:59 AM CDT COVID: Suspected 04/05/2022 04/05/2022 04/05/2022 9:09 PM RECORD CHANGER TESTER COVID: Suspected 04/16/2022 04/16/2022 04/16/2022 5:39 PM RECORD CHANGER TESTER COVID: Suspected 12/27/2023 12/27/2023 12/27/2023 11:03 AM CDT COVID: Suspected 12/27/2023 12/27/2023 12/27/2023 8:57 PM CDT COVID: Suspected 06/06/2024 06/06/2024 06/06/2024 9:28 AM RECORD CHANGER TESTER COVID: Suspected 06/19/2024 06/19/2024 06/19/2024 12:57 PM CDT documented as of this encounter Care Teams Machine Shop Apprentice Relationship Specialty Start Date End Date Nicko Munoz MD [address] [facility] [address] [place] [address] [facility] [place], [place] [id number] PCP - General 06/30/18 02/08/20 London Ivy NP [address] [place] [address] PCP - General 02/09/20 09/15/21 Quinton Lennon MD [address] [place] [address] PCP - General Family Medicine 09/16/21 11/22/21 Quinton Lennon MD [address] [facility] [address] [place] [address] PCP - General Family Medicine 11/23/21 08/13/24 London Ivy NP [address] [facility] [address] [place] [address] PCP - General Nurse Practitioner 08/14/24 08/15/24 Quinton Lennon MD [address] [facility] [address] [place] [address] PCP - General Family Medicine 08/16/24 11/25/24 London Ivy NP [address] [facility] [address] [place] [address] PCP - General Nurse Practitioner 12/03/24 Quinton Lennon MD [address] [place] [address] Family Medicine 11/23/21 Simone Corral DO [address] [place] [address] Referring Physician Cardiology 09/20/21 Kashif Curran MD [address] [place] [address] Consulting Physician Cardiology 01/15/23 01/15/24 Dodie Ibrahim, SLURRY TANK OPERATOR [address] [facility] [address] [place] [address] Nurse Practitioner Pain Management 01/15/23 04/16/24 Britany Dominguez MD [address] [facility] [address] [place] [address] Surgeon Anesthesiology 01/15/23 04/16/24 Humberto Garcia MD [address] [place] [address] Consulting Physician Pulmonary Disease 01/16/24 Kris Otero MD [address] [place] [address] Consulting Physician Cardiology 01/16/24 [facility] - [address] [address] Pain Management 04/17/24 documented as of this encounter
--- OUTSIDE RECORDS SUMMARY | 2024-12-29 11:39 | XMS_ITS | Encounter Summary ---
Author Organization [facility] Address [address] [place] [address] Care Team Providers Care Bead Wire Insulator Name Role Phone Nicko Munoz MD Primary Care Provider [phone] London Ivy APRN-SOCIAL WORKER AIDE Primary Care Provider [phone] Quinton Lennon MD Primary Care Provider [phone] Encounter Details Date Type Department Care Team (Late st Contact Info) Description 05/05/2019 Lab Requisition [facility] [address] [place] [address] Veda Vega MD [address] [place] [address] Illness, unspecified Social History Tobacco Use Types Packs/Day Years Used Date Smoking Tobacco: Never Assessed Sex and Gender Information Value Date Recorded Sex Assigned at Not on file Legal Sex Male 6:30 PM YACHT CAPTAIN Gender Identity Not on file Sexual Orientation Not on file documented as of this encounter Plan of Treatment Not on file documented as of this encounter Procedures Procedure Name Priority Date/Time Associated Diagnosis Comments PATH CONSULT ON REFERRED CASE Routine 05/05/2019 2:10 PM YACHT CAPTAIN Illness, unspecified documented in this encounter Results * PATH CONSULT ON REFERRED CASE (05/05/2019 2:10 PM YACHT CAPTAIN) Final Diagnosis URINE, VOIDED, THIN PREP, CYTOLOGY (OSC: [id number], 05/02/2019): - Negative for malignancy (No evidence for High-grade dysplasia) 05/07/2019 4:00 PM [facility] Amendment electronically signed by Marcello Benavides MD on 05/07/2019 at 1600 YACHT CAPTAIN at 1026 YACHT CAPTAIN Microscopic Description and Comment Performed. 05/07/2019 4:00 PM [facility] Clinical History Hematuria. 05/07/2019 4:00 PM [facility] Materials Received Prepared slide received from [facility] labeled [id number]. All material will be returned. This report was amended to correct the name of the submitting institution. The diagnosis remains unchanged. 05/07/2019 4:00 PM [facility] Disclaimer The performance characteristics of all immunohistochemical and indirect immunofluorescence stains (if any) cited in this report were determined by the Histopathology Laboratory of [facility]. Some of these tests were developed by our own laboratory and have not been cleared or approved by the US Food and Drug Administration. The FDA does not require this test to go through premarket FDA review. These tests are used for clinical purposes. They should not be regarded as investigational or for research. This laboratory is certified under the Clinical Laboratory Improvement Amendments (CLIA) as qualified to perform high complexity clinical laboratory testing. This case has been personally reviewed and interpreted by the attending (teaching) pathologist. 05/07/2019 4:00 PM [facility] Case Report Surgical Pathology Report Case: [id number] Authorizing Provider: Veda Vega MD Collected: 05/05/2019 02:10 PM Ordering Location: [facility] Received: 05/05/2019 02:11 PM Pathologist: Marcello Benavides MD Specimen: Slide Consultation, OSC: [id number] 05/07/2019 4:00 PM [facility] Embedded Images 05/07/2019 4:00 PM [facility] Pathology/Cytolo gy SURGICAL PATHOLOGY CONSULTATION AND REPORT ON REFERRED SLIDES PREPARED ELSEWHERE / Unknown 05/05/2019 2:10 PM YACHT CAPTAIN 05/05/2019 2:11 PM YACHT CAPTAIN us Veda Vega MD LAB - PATHOLOGY/CYTOLOGY ORDERAB LES Edited Result - Final [facility] [address] [place] [address] documented in this encounter Visit Diagnoses Diagnosis Illness, unspecified documented in this encounter Care Teams Bead Wire Insulator Relationship Specialty Start Date End Date Nicko Munoz MD [address] [place] [id number] PCP - General 10/08/12 08/11/20 London Ivy, FREELANCE PATTERNMAKER-SOCIAL WORKER AIDE [address] [place] [address] PCP - General 08/12/20 01/18/22 Quinton Lennon MD [address] [id number] PCP - General 01/19/22 documented as of this encounter
--- OUTSIDE RECORDS SUMMARY | 2024-12-29 11:39 | XMS_ITS | Clinical Summary ---
Author Organization [facility] Address [address] [facility] [place] [address] Care Team Providers Care Electrical Contractor Name Role Phone Quinton Lennon MD Primary Care Provider [phone] Source Comments [facility],non-owned Affiliates and Associated Physician Practices is amultiple site organization consisting of ambulatory clinics and hospital sitesin [place], [place], [place] and [place]. This disclosure is being madepursuant to the Care Everywhere program and may not contain all information available regarding this patient. 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 Gender Identity Not on file Sexual Orientation Not on file Plan of Treatment Health Maintenance Due Date Last Done Comments MEDICARE AWV 12 MONTHS 1945 HEPATITIS C SCREENING 06/09/1965 DTAP/TDAP/TD VACCINES (1 - Tdap) 06/13/1966 PNEUMOCOCCAL VACCINE 50+ (1 of 1 - PCV) 06/13/1997 ZOSTER VACCINE (1 of 2) 06/13/1997 Respiratory Syncytial Virus (RSV) Vaccine Pt: or over 60 yrs (1 - 1-dose 75+ series) 06/13/2022 DEPRESSION SCREENING 04/02/2024 COVID-19 VACCINE (1 - 2023-2 5 season) 2024 INFLUENZA VACCINE (#1) 2024 HEPATITIS B VACCINE Aged Out No longe r eligible based on patient's age to complete this topic HIB VACCINE Aged Out No longer eligi ble based on patient's age to complete this topic HPV VACCINE Aged Out No longer eligi ble based on patient's age to complete this topic MENINGOCOCCAL (Group B) VACC INE SHARED DECISION-MAKING Aged Out No longer eligibl e based on patient's age to complete this topic MENINGOCOCCAL GROUPS A/C/Y/W VACCINE Aged Out No longer eligible b ased on patient's age to complete this topic Insurance MEDICARE [address] [place] [address] MEDICARE [facility] MEDICARE [facility] Care Teams Electrical Contractor Relationship Specialty Start Date End Date Quinton Lennon MD [address] [facility] [address] [place] [address] PCP - General 01/19/22
--- OUTSIDE RECORDS SUMMARY | 2024-12-29 11:39 | XMS_ITS | Clinical Summary ---
Author Organization [facility] Address [address] [place] [address] Care Team Providers Care Outside Machinist Helper Name Role Phone Unavailable Primary Care Provider Unavailabl e Social History Tobacco Use Types Packs/Day Years Used Date Smoking Tobacco: Never Assessed Sex and Gender Information Value Date Recorded Sex Assigned at Not on file Legal Sex Male 11:12 AM CDT Gender Identity Not on file Sexual Orientation Not on file Plan of Treatment Health Maintenance Due Date Last Done Comments Hepatitis C Virus (HCV) Screening 1945 TdaP Immunization 1945 Zoster Immunization (2 of 3) 08/26/2012 07/01/2012 Respiratory Syncytial Virus (RSV) Immunization (Adult) (1 - 1-dose 75+ series) 06/13/2022 SARS-COV-2 Immunization (2 - season) 2023 05/19/2020 Influenza Immunization (#1) 12/01/202411/2019, 02/06/2019, 12/30/2014, Additional history exists Pneumococcal Immunization (50+ years) Completed 02/06/2019, 02/06/2016, 12/30/2014 Hepatitis B Immunization Aged Out No longer eligible based on patient's age to complete this topic Human Papillomavirus (HPV) Immunization Aged Out No longer eligible based on patient's age to complete this topic Meningococcal Immunization (ACWY) Aged Out No longer eligible based on patient's age to complete this topic Rotavirus Immunization Aged Out No lo nger eligible based on patient's age to complete this topic
--- OUTSIDE RECORDS SUMMARY | 2024-12-29 11:39 | XMS_ITS | Encounter Summary ---
Author Organization [facility] Address [address] [place] [address] Care Team Providers Care Plant Anatomist Name Role Phone Quinton Lennon MD Unavailable [phone] Simone Corral DO Unavailable [phone] Humberto Garcia MD Unavailable [phone] Kris Otero MD Unavailable London Ivy NP Primary Care Provider [phone] Encounter Details Date Type Department Care Team (Late st Contact Info) Description 12/03/2024 Results Follow-Up [facility] Primary Care at [address] [address] Quinton Lennon MD [address] [place] [address] [address] [place] [address] CT Chest WO Contrast F/U Lung Screen Protocol Social History Tobacco Use Types Packs/Day Years Used Date Smoking Tobacco: Every Day Cigarettes 0.5 57 Smokeless Tobacco: Never Comments:30 years [facility] Utilities Answer Date Recorded In the past 12 months has [employer] electric, gas, oil, or water [employer] threatened to shut off services in your [...] often do you attend chur ch or presybeterian services? Never 06/20/2024 Do you belong to any clubs o r organizations such as anabaptist groups, unions, fraternal or athletic groups, or [...] any time in the past 12 m [facility], were you homeless or living in a longterm (including now)? No 06/20/2024 Personal Safety Answer Date Recorded Have you ever been in or are you currently in a harmful physical or emotional relationship or is someone making you feel afraid or unsafe? 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 Gender Identity Male 03/29/2021 6:23 PM STRAPPER OPERATOR Sexual Orientation Not on file documented as of this encounter Plan of Treatment Not on file documented as of this encounter Visit Diagnoses Not on filedocumented in this encounter Care Teams Plant Anatomist Relationship Specialty Start Date End Date London Ivy NP [address] [facility] [address] [place] [address] PCP - General Nurse Practitioner 12/03/24 Quinton Lennon MD [address] [place] [address] Family Medicine 11/23/21 Simone Corral DO [address] [facility] [address] [place] [address] Referring Physician Cardiology 09/20/21 Humberto Garcia MD [address] [id number] Consulting Physician Pulmonary Disease 01/16/24 Kris Otero MD [address] [facility] [address] [facility] [address] [place] [address] Consulting Physician Cardiology 01/16/24 [facility] - [address] [address] Pain Management 04/17/24 documented as of this encounter
--- NOTE | 2024-12-29 15:07 | PM.IMHP ---
H&P: HPI History of Present Illness Date/Time: 12/29/24 15:07 Chief Complaint: SOB Left Hip Pain Narrative: 79 year old male with PMH of afib on chronic anticoagulation, hypertension , COPD presented with left hip pain. Patient is poor historian. Patient states he has been having left hip pain for severe months. He had worsening left hip pain this morning. His daughter found him in his recliner this morning with severe left hip pain. He is unsure about a fall. His having shortness of breath, has history of COPD, but does not use oxygen at home. He is a smoker. He follows up with gas appliance adjuster in [place]. Unsure if he takes Lasix. Patient is unsure if he takes any anticoagulant. Review of Systems Review of Systems: All systems reviewed & are unremarkable except as noted in HPI and below PMFSH Past Medical History Medical History History of heart attack 2018 Atrial fibrillation History of non-ST elevation myocardial infarction (NSTEMI) Tobacco abuse CAD in [place] artery COPD (chronic obstructive pulmonary disease) History of SCC (squamous cell carcinoma) of skin History of malignant neoplasm of bladder Hypoglycemia Adult hypothyroidism Mixed hyperlipidemia KARTHIK on CPAP Paroxysmal atrial fibrillation with rapid ventricular response Personal history of nicotine dependence Neuroma of right lower extremity after surgery Malignant neoplasm of bladder Essential (primary) hypertension Hyperlipidemia Surgical History Surgical History History of bladder surgery Family History Family History Sibling Family history of diabetes mellitus in first degree relative Family history of heart disease in male family member before age 55 Mother Family history of heart disease in male family member before age 55 Father Acute myocardial infarction Social History Social History Smoking packs per day: 1 Smoking cigarettes per day: 20.0 Years smoked: 31 Smoking pack-years: 31.00 Smoking status: Current every day smoker Tobacco type: cigarettes Second hand tobacco smoke exposure: Yes Alcohol intake: former Drinks per week: 21 Alcohol use details: VODKA - STATES QUIT SOMETIME IN 2021 Substance use: never Substance use type: does not use Do You Feel Safe in your Home?: Yes Lack of Transportation: No Lack of Food: Never True Current Housing: I Have Housing Concerned About Future Housing: No Difficulty Paying Gas/Electric Bills: No Difficulty Paying for Meds: No Currently Unemployed: No Education: High School Diploma/GED Difficulty w/ Childcare or Family Care: Decline to Answer Living arrangements: with family Spiritual care concerns: No Meds Home Medications and Allergies Home Medications ?Medication ?Instructions ?Recorded ?Confirmed ?Type aspirin 81 mg tablet,delayed 81 mg PO DAILY 04/09/19 12/29/24 History release fluticasone fur. 100 mcg-umeclid 1 inhalation inhalation DAILY 04/09/19 12/29/24 History 62.5 mcg-vilant 25 mcg inhalat.powder (Trelegy Ellipta) levothyroxine 100 mcg tablet 100 mcg PO QAM 11/25/19 12/29/24 History candesartan 32 1 tablet PO DAILY #90 tabs 11/26/19 12/29/24 Rx mg-hydrochlorothiazide 25 mg tablet albuterol sulfate 90 mcg/actuation 2 puff inhalation PRN PRN SOB 05/31/20 12/29/24 History aerosol inhaler ascorbic acid (vitamin C) 1,000 mg 1 g PO DAILY 06/29/20 12/29/24 History tablet loratadine [Claritin] 10 mg PO DAILY 06/29/20 12/29/24 History selenium 200 mcg tablet 200 mcg PO DAILY 06/29/20 12/29/24 History metoprolol tartrate 25 mg tablet 25 mg PO BID #180 tabs 11/25/20 12/29/24 Rx atorvastatin 20 mg tablet See Rx Instructions .Route 11/29/21 12/29/24 Rx .COMPLEX #90 tabs apixaban 5 mg tablet (Eliquis) 5 mg PO BID 03/20/23 12/29/24 History finasteride 5 mg tablet 5 mg PO DAILY #30 tabs 03/29/23 12/29/24 Rx Allergies Allergy/AdvReac Type Severity Reaction Status Date / Time levofloxacin Allergy Mild Hives / Verified 12/29/24 15:10 Red Face Penicillins Allergy Unknown Unknown- Verified 12/29/24 15:10 A CHILD dimethicone (From Dermatix) Allergy Rash Verified 12/29/24 15:10 silicon dioxide (From Allergy Rash Verified 12/29/24 15:10 Dermatix) doxycycline AdvReac Unknown Nausea Verified 12/29/24 15:10 Vital Signs Vital Signs - 24 hr 12/29/24 10:31 12/29/24 10:57 12/29/24 12:27 Temperature 98.4 F Pulse Rate 100 Respiratory Rate 18 Blood Pressure 101/75 Pulse Oximetry 92 94 92 Oxygen Delivery Room Air Nasal Cannula Nasal Cannula Oxygen Flow Rate 1 3 12/29/24 12:27 12/29/24 12:58 12/29/24 14:15 Temperature 97.8 F Pulse Rate 107 H 102 H 98 Respiratory Rate 17 18 20 Blood Pressure 102/63 104/65 110/70 Pulse Oximetry 92 94 95 Oxygen Delivery Oxygen Flow Rate 12/29/24 14:16 Temperature Pulse Rate Respiratory Rate Blood Pressure Pulse Oximetry 95 Oxygen Delivery Nasal Cannula Oxygen Flow Rate 1 Exam Const: General: in distress and uncomfortable Other: On 2 L of O2 support HENMT: Mouth: Yes moist mucous membranes Eyes: Sclera: sclerae normal Pupils: Equal, round and reactive pupils present Neck: Neck: supple Resp: Auscultation: crackles Other: Few crackles heard at the bases, no wheezing, decreased breath sounds bilaterally, pursed lip breathing Cardio: Rate: regular rate Rhythm: regular rhythm GI: GI Palp: Yes Soft to palpation Auscultation: normal bowel sounds Skin: Other: Noted skin tear on elbow Neuro: Speech: normal speech Extrem: Other: Bilateral leg swelling/edema present Psych: Mental Status: mental status grossly normal H&P: Results Labs Labs: Short CBC 12/29/24 Range/Units 11:06 WBC 16.8 H (4.5-10.0) K/mm3 Hgb 15.2 (14.0-18.0) g/dL Hct 45.7 (42.0-52.0) % Plt Count 256 D (150-375) k/mm3 BMP 12/29/24 11:06 Sodium 135 L Potassium 3.5 Chloride 103 Carbon Dioxide 21 L BUN 24 H Creatinine 0.86 Glucose 105 Calcium 9.3 Cardiac Enzymes 12/29/24 Range/Units 11:06 Troponin I < 0.012 (0.000-0.034) ng/mL Liver Function 12/29/24 Range/Units 11:06 Total Bilirubin 0.7 (0.2-1.3) mg/dL AST 31 (17-59) U/L ALT 18 (6-50) U/L Alkaline Phosphatase 74 (38-126) U/L Albumin 4.0 (3.5-5.1) g/dL Assessment and Plan Assessment and plan (1) Atrial fibrillation: Code(s): I48.91 - Unspecified atrial fibrillation Status: Acute (2) Adult hypothyroidism: Code(s): E03.9 - Hypothyroidism, unspecified Status: Acute (3) COPD (chronic obstructive pulmonary disease): Code(s): J44.9 - Chronic obstructive pulmonary disease, unspecified Status: Acute (4) Personal history of nicotine dependence: Code(s): Z87.891 - Personal history of nicotine dependence Status: Acute (5) Hip fracture: Code(s): S72.009A - Fracture of unspecified part of neck of unspecified femur, initial encounter for closed fracture Status: Acute (6) Acute hypoxic respiratory failure: Code(s): J96.01 - Acute respiratory failure with hypoxia Status: Acute Plan 79-year-old male with past medical history of AFib on chronic anticoagulation, COPD, presented with ongoing left hip pain, was found to have left hip fracture, along with hypoxia. 1. Left femoral neck fracture: Admit to General Medicine Orthopedics consult Pain control Bedrest 2. Acute hypoxic respiratory failure: Blood gas suggestive of hypoxia Continue with O2 support Start on DuoNebs and Advair Will give a trial of 40 mg IV Lasix Does have elevated BNP, bilateral lower leg swelling along with few crackles Obtain echocardiogram Hold off any antibiotics for now although patient does have leukocytosis Will obtain blood cultures Obtain COVID, flu, RSV 3. Leukocytosis: Obtain blood culture, UA with urine culture 4. History of atrial fibrillation: Continue with metoprolol 25 mg p.o. b.i.d., that is his home dose Will decide upon Eliquis/Lovenox once we have more information from Orthopedics about the timing of orthopedic intervention 5. History of hypothyroidism: Resume home dose levothyroxine 6. Code status: Full 7. DVT prophylaxis: SCDs for now until we have further information from Orthopedics 8. Disposition: Admit to General Medicine Quality VTE Prophylaxis VTE prophylaxis: mechanical ordered Hospitalist MIPS Advance Care Plan I have confirmed that the patient's Advanced Care Plan is present, code status is documented, or surrogate decision maker is listed in patient medical record.: Yes Medication Reconciliation I have utilized all available resources to obtain, update and review the patients current medications (includes all prescriptions, OTC, herbals, cannabis, and nutritional supplements).: Yes
[2024-12-29] MEDS: FUROSEMIDE INJ 40 MG/4 ML VIAL IV PUSH (15:49)
[2024-12-29] MEDS: MORPHINE SULFATE (*CRX) 4 MG/ML INJ 2 MG IV PUSH ×2 (15:49→20:29)
[2024-12-29] MEDS: PERFLUTREN LIPID MICROSPHERES 1.5 ML VIAL DILUTED TO 10 ML TOTAL VOLUME IV PUSH (16:59)
--- NOTE | 2024-12-29 17:00 | IVDEFINITY ---
Prior to administration of IV Definity the patient was educated on the risks and benefits of the imaging enhancing agent including potential adverse side effects. The patient verbalized understanding. Allergies were verified. No exclusion criteria were identified and at least one of the following inclusion criteria were met: 1) physician request, 2) patient technically difficult to image (per the [place] [employer] Echocardi[employer] guidelines of two or more segments not discernable within the apical view), or 3) questionable left ventricular function. ?
[2024-12-29 18:51] LABS: Influenza A QL RT-PCR Negative (Negative); Influenza B QL RT-PCR Negative (Negative); RSV RNA, RT-PCR Negative (Negative); SARS-CoV-2 RNA PCR Negative (Negative)
[2024-12-29] MEDS: IPRATROPIUM 0.5 MG/ALBUTEROL SULFATE 2.5 MG AMPUL.NEB 3 ML INHALATION (19:41)
[2024-12-29] MEDS: FLUTICASONE/SALMETEROL 115-21 MCG INHALER 1 PUFF 2 PUFF INHALATION (19:41)
[2024-12-29] MEDS: METOPROLOL TARTRATE 25 MG TABLET PO (20:34)
[2024-12-29] MEDS: ACETAMINOPHEN 500 MG TABLET PO (22:33)
[2024-12-29 23:11] LABS: Add Urine Microscopic? YES; Appearance Urine Clear (Clear); Glucose Urine UA Negative (Negative); Leukocyte Esterase Ur Trace LEU/UL (Negative); Nitrate Urine Negative (Negative); Specific Grav Ur 1.007 (1.001-1.035)
[2024-12-30] VITALS (16 sets, daily range): BP systolic 102–124; BP diastolic 69–82; PULSE 76–90; RESP 17–20; TEMP 36.2–36.6; O2SAT 95–100
[2024-12-30] MEDS: HYDROmorphone HCL INJ (*CRX) 1 MG/ML SYR 0.5 MG IV PUSH ×5 (01:15→20:15)
[2024-12-30] MEDS: IPRATROPIUM 0.5 MG/ALBUTEROL SULFATE 2.5 MG AMPUL.NEB 3 ML INHALATION ×4 (01:53→21:35)
[2024-12-30 06:02] LABS: Hematocrit 42.9 % (42.0-52.0); Hemoglobin 13.8 g/dL (14.0-18.0); Immature Granulocyte Percent A 0.4 % (0-0.5); Lymphocytes Absolute Auto 0.86 K/mm3 (0.9-3.2); Mean Corpuscular HGB Conc 32.2 g/dl (32-36); Mean Corpuscular Hemoglobin 29.7 pg (26-34); Mean Corpuscular Volume 92.3 fl (80-100); Nucleated Red Blood Cells Absolute Auto 0.000 K/mm3 (0.0-0.012); Nucleated Red Blood Cells Perc 0.0 % (0.0-0.2); Platelet Count Result 194 k/mm3 (150-375); Red Blood Count 4.65 M/mm3 (4.6-6.20); White Blood Count 11.3 K/mm3 (4.5-10.0)
[2024-12-30] MEDS: LEVOTHYROXINE SODIUM 100 MCG TABLET PO (06:09)
[2024-12-30 06:15] LABS: Alanine Aminotransferase 18 U/L (6-50); Albumin Level 3.6 g/dL (3.5-5.1); Alkaline Phosphatase 63 U/L (38-126); Anion Gap 7 mmol/L (4-12); Aspartate Amino Transferase 33 U/L (17-59); Bilirubin,Total 1.2 mg/dL (0.2-1.3); Blood Urea Nitrogen 25 mg/dL (9-20); Calcium 8.8 mg/dL (8.4-10.2); Carbon Dioxide 29 mmol/L (22-30); Chloride 102 mmol/L (98-107); Estimated CRCL calculation 57 ml/min; Estimated Glomerular Filt Rate > 60; Glucose 81 mg/dL (65-110); Potassium 3.2 mmol/L (3.4-5.0); Sodium 138 mmol/L (137-145); Total Protein 6.1 g/dL (6.3-8.2)
[2024-12-30] MEDS: FLUTICASONE/SALMETEROL 115-21 MCG INHALER 1 PUFF 2 PUFF INHALATION (07:52)
[2024-12-30] MEDS: FLUTICASONE/UMECLIDIN/VILANTER 100-62.5-25 MCG ELLIPTA 1 PUFF INHALATION (07:56)
[2024-12-30] MEDS: METOPROLOL TARTRATE 25 MG TABLET PO ×2 (09:13→20:57)
[2024-12-30] MEDS: FINASTERIDE 5 MG TABLET PO (09:13)
[2024-12-30] MEDS: ATORVASTATIN 20 MG TABLET BY MOUTH (09:13)
[2024-12-30] MEDS: POTASSIUM CHLORIDE 20 MEQ ER TABLET 40 MEQ PO (09:15)
--- NOTE | 2024-12-30 11:20 | PM.CNOR ---
Assessment and Plan Assessment and plan (1) Closed fracture of neck of left femur: Qualifiers: Encounter type: initial encounter Qualified Code(s): S72.002A - Fracture of unspecified part of neck of left femur, initial encounter for closed fracture Code(s): S72.002A - Fracture of unspecified part of neck of left femur, initial encounter for closed fracture Status: Acute Plan The patient is a 79-year-old male, presented to the emergency department after falling onto his left hip, falling out of his couch. He's unclear as far as how he fell out of his couch. He lives at home alone by himself. His son apparently came by and discovered him. He doesn't know how much longer his son came by after he fell, or the duration of the time he was on the floor. He was brought into the emergency department and diagnosed with a left hip, a minimally displaced ripple neck fracture. He reports also some back pain, and he's been taking hydrocodone at home on a daily basis, at least two tablets of some type. I'm not sure of the exact dosage, but he's on chronic pain medication at this point in time. He reports left hip pain and some low back pain at this point in time. His past medical history is significant for a myocardial infarction in 2018. He smokes pack of cigarettes a day for many years. When we examine the patient's left lower extremity, he has significant pain with any sort of rotation of his left hip that radiates from his hip all the way down into his knee. He has good dorsalis pedis pulse and good sensation of this extremity. Review of the patient's x-ray shows that he has a minimally displaced left hip femoral neck fracture. Tube recommendation is either for percutaneous screw fixation or a hemiarthroplasty. At this point in time, I informed the patient and his daughter Romelia, as well as his son Genaro, both his children by phone, of the alternative. Given the fact that it is minimally displaced, it may heal without having to do a hemiarthroplasty with a percutaneous screw fixation. They understand that the risk of additional surgery, if we went with a percutaneous screw fixation versus hemiarthroplasty, is significantly lower with a hemiarthroplasty, although the hemiarthroplasty carries with it significantly more post-surgical risk with regards to dislocation, infection, and also a nerve and blood vessel injury. However, this patient wants to be independent. He's determining whether or not he is able to be partial weight-bearing on this extremity for a period of six weeks and to wait for the fracture to heal. We will schedule him for surgery and preoperatively prepare, and we will determine the family and the patient's wishes as far as percutaneous screw fixation versus the hemiarthroplasty. The risk of this type of surgery includes, but not limited to, infection, nerve and blood vessel injury, DVT, dislocation, limb-like discrepancy, and they understand that these are not the same risk factors for percutaneous screw fixation, which is very low likelihood for issues except for the possibility of requiring additional surgery if he doesn't heal. History of Present Illness HPI Consult date: 12/30/24 Chief complaint: left femoral neck fracture,copd Narrative: Fell on Left hip at home, fell off of sofa. Not sure the reason for his fall. denies syncope. low back pain also associated with Left hip pain. [facility] Past Medical History Medical History History of heart attack 2018 Atrial fibrillation History of non-ST elevation myocardial infarction (NSTEMI) Tobacco abuse CAD in [place] artery COPD (chronic obstructive pulmonary disease) History of SCC (squamous cell carcinoma) of skin History of malignant neoplasm of bladder Hypoglycemia Adult hypothyroidism Mixed hyperlipidemia KARTHIK on CPAP Paroxysmal atrial fibrillation with rapid ventricular response Personal history of nicotine dependence Neuroma of right lower extremity after surgery Malignant neoplasm of bladder Essential (primary) hypertension Hyperlipidemia Surgical History Surgical History History of bladder surgery Family History Family History Sibling Family history of diabetes mellitus in first degree relative Family history of heart disease in male family member before age 55 Mother Family history of heart disease in male family member before age 55 Father Acute myocardial infarction Social History Social History Smoking packs per day: 1 Smoking cigarettes per day: 20.0 Years smoked: 31 Smoking pack-years: 31.00 Smoking status: Current every day smoker Tobacco type: cigarettes Second hand tobacco smoke exposure: Yes Alcohol intake: former Drinks per week: 21 Alcohol use details: VODKA - STATES QUIT SOMETIME IN 2021 Substance use: never Substance use type: does not use Do You Feel Safe in your Home?: Yes Lack of Transportation: No Lack of Food: Never True Current Housing: I Have Housing Concerned About Future Housing: No Difficulty Paying Gas/Electric Bills: No Difficulty Paying for Meds: No Currently Unemployed: No Education: High School Diploma/GED Difficulty w/ Childcare or Family Care: Decline to Answer Living arrangements: with family Spiritual care concerns: No Meds Home Medications and Allergies Home Medications ?Medication ?Instructions ?Recorded ?Confirmed ?Type aspirin 81 mg tablet,delayed 81 mg PO DAILY 04/09/19 12/29/24 History release fluticasone fur. 100 mcg-umeclid 1 inhalation inhalation DAILY 04/09/19 12/29/24 History 62.5 mcg-vilant 25 mcg inhalat.powder (Trelegy Ellipta) levothyroxine 100 mcg tablet 100 mcg PO QAM 11/25/19 12/29/24 History candesartan 32 1 tablet PO DAILY #90 tabs 11/26/19 12/29/24 Rx mg-hydrochlorothiazide 25 mg tablet albuterol sulfate 90 mcg/actuation 2 puff inhalation PRN PRN SOB 05/31/20 12/29/24 History aerosol inhaler ascorbic acid (vitamin C) 1,000 mg 1 g PO DAILY 06/29/20 12/29/24 History tablet loratadine [Claritin] 10 mg PO DAILY 06/29/20 12/29/24 History selenium 200 mcg tablet 200 mcg PO DAILY 06/29/20 12/29/24 History metoprolol tartrate 25 mg tablet 25 mg PO BID #180 tabs 11/25/20 12/29/24 Rx atorvastatin 20 mg tablet See Rx Instructions .Route 11/29/21 12/29/24 Rx .COMPLEX #90 tabs apixaban 5 mg tablet (Eliquis) 5 mg PO BID 03/20/23 12/29/24 History finasteride 5 mg tablet 5 mg PO DAILY #30 tabs 03/29/23 12/29/24 Rx Allergies Allergy/AdvReac Type Severity Reaction Status Date / Time levofloxacin Allergy Mild Hives / Verified 12/29/24 15:10 Red Face Penicillins Allergy Unknown Unknown- Verified 12/29/24 15:10 A CHILD dimethicone (From Dermatix) Allergy Rash Verified 12/29/24 15:10 silicon dioxide (From Allergy Rash Verified 12/29/24 15:10 Dermatix) doxycycline AdvReac Unknown Nausea Verified 12/29/24 15:10 Vital Signs Vital Signs - 24 hr 12/29/24 12:27 12/29/24 12:27 12/29/24 12:58 Temperature Pulse Rate 107 H 102 H Respiratory Rate 17 18 Blood Pressure 102/63 104/65 Pulse Oximetry 92 92 94 Oxygen Delivery Nasal Cannula Oxygen Flow Rate 3 Fraction of Inspired Oxygen 12/29/24 14:15 12/29/24 14:16 12/29/24 17:32 Temperature 36.6 C Pulse Rate 98 Respiratory Rate 20 Blood Pressure 110/70 Pulse Oximetry 95 95 94 Oxygen Delivery Nasal Cannula Nasal Cannula Oxygen Flow Rate 1 1 Fraction of Inspired Oxygen 12/29/24 19:44 12/29/24 19:50 12/29/24 20:01 Temperature Pulse Rate 106 H 106 H 105 H Respiratory Rate 20 20 20 Blood Pressure Pulse Oximetry 91 Oxygen Delivery Nasal Cannula Oxygen Flow Rate 5 Fraction of Inspired Oxygen 40 12/29/24 20:34 12/29/24 20:43 12/29/24 21:53 Temperature 37.3 C Pulse Rate 105 H 96 Respiratory Rate 22 H Blood Pressure 113/59 L Pulse Oximetry 90 91 Oxygen Delivery Nasal Cannula Oxygen Flow Rate 2 Fraction of Inspired Oxygen 12/29/24 22:41 12/30/24 01:53 12/30/24 01:54 Temperature Pulse Rate 91 84 90 Respiratory Rate 20 Blood Pressure Pulse Oximetry 91 Oxygen Delivery Autopap Nasal Cannula Oxygen Flow Rate Fraction of Inspired Oxygen 12/30/24 02:05 12/30/24 05:56 12/30/24 07:50 Temperature 36.4 C L Pulse Rate 90 79 80 Respiratory Rate 20 18 20 Blood Pressure 102/69 Pulse Oximetry 95 Oxygen Delivery Oxygen Flow Rate Fraction of Inspired Oxygen 12/30/24 07:56 12/30/24 08:10 12/30/24 09:13 Temperature Pulse Rate 90 84 84 Respiratory Rate 20 Blood Pressure Pulse Oximetry Oxygen Delivery Nasal Cannula Oxygen Flow Rate Fraction of Inspired Oxygen Exam Narrative: Left hip externally rotated with no swelling tenderness or deformity to Right or Left knee or ankles. Const: General: cooperative and alert Nutritional Appearance: average body habitus Orientation/consciousness: oriented to person, oriented to place and oriented to time Results Labs 12/30/24 05:42 12/30/24 05:42 Labs: Abnormal lab results 12/29/24 12/29/24 12/30/24 Range/Units 11:06 22:57 05:42 WBC 16.8 H 11.3 H (4.5-10.0) K/mm3 Hgb 13.8 L (14.0-18.0) g/dL MPV 10.7 H (7.4-10.4) fl Neut % (Auto) 85.4 H 77.3 H (45.5-73.1) % Lymph % (Auto) 5.5 L 7.6 L (18.3-44.2) % [place] % (Auto) 11.4 H (2.6-8.5) % Lymph # (Auto) 0.86 L (0.9-3.2) K/mm3 [place] # (Auto) 1.3 H 1.3 H (0.1-0.6) K/mm3 Abs Immat Gran (auto) 0.08 H 0.04 H (0.00-0.031) K/mm3 Absolute Neuts (auto) 14.3 H 8.8 H (1.3-6.7) K/mm3 PT 14.8 H (11.1-14.7) Seconds Sodium 135 L (137-145) mmol/L Potassium 3.2 L (3.4-5.0) mmol/L Carbon Dioxide 21 L (22-30) mmol/L BUN 24 H 25 H (9-20) mg/dL NT-Pro-B Natriuret Pep 361 H (19.9-100) pg/mL Total Protein 6.1 L (6.3-8.2) g/dL Leukocyte Esterase Rfl Trace H (Negative) STEPHY/UL H & H 12/29/24 12/30/24 Range/Units 11:06 05:42 Hgb 15.2 13.8 L (14.0-18.0) g/dL Hct 45.7 42.9 (42.0-52.0) % Coagulation 12/29/24 Range/Units 11:06 INR 1.2 All other labs normal.
--- NOTE | 2024-12-30 13:04 | P.PNIM_ITS ---
Progress Note: A&P Assessment and Plan (1) Acute hypoxic respiratory failure: Code(s): J96.01 - Acute respiratory failure with hypoxia Status: Acute Assessment and Plan: Patient was here for left hip pain and noted to be hypoxic. ABG showing 7.40/36/64 on 1L. CXR was clear. BNP 361 COVID, flu, RSV PCR negative. He is on Eliquis so PE seems less likely. He was given 40 mg IV Lasix but doubt CHF (CXR clear and BNP essentially normally) Echo with EF 70%, diastolic dysfunction grade I, mild RV enlargement. He was wheezing in ED so consider COPD exacerbation. Continue with O2 support. Continue DuoNebs. On Trelegy at home that was resumed. Wean o2 as tolerated. (2) Hip fracture: Code(s): S72.009A - Fracture of unspecified part of neck of unspecified femur, initial encounter for closed fracture Status: Acute Assessment and Plan: Patient with left hip pain after a fall (presumably fell off his couch). Head CT negative fo acute intracranial findings. Left foot xray showing arthritis but no acute osseous abnormality. Left knee showing no effusion or acute process. Left hip showing left femoral neck fracture. Orthopedics consult Pain control Bedrest (3) Atrial fibrillation: Code(s): I48.91 - Unspecified atrial fibrillation Status: Acute Assessment and Plan: History of atrial fibrillation on metoprolol and Eliquis. Metoprolol continued. Eliquis stopped and bridging with lovenox at this time Continue Lovenox until the timing of orthopedic intervention (4) COPD (chronic obstructive pulmonary disease): Code(s): J44.9 - Chronic obstructive pulmonary disease, unspecified Status: Acute Assessment and Plan: Patient wheezing on admission but not currently Continue Trelegy. Continue Duonebs Wean O2 as tolerated (5) Adult hypothyroidism: Code(s): E03.9 - Hypothyroidism, unspecified Status: Acute Assessment and Plan: Continue levothyroxine. Check TSH (6) Personal history of nicotine dependence: Code(s): Z87.891 - Personal history of nicotine dependence Status: Acute Assessment and Plan: Smoking cessation is encouraged. (7) Confusion: Code(s): R41.0 - Disorientation, unspecified Status: Acute Assessment and Plan: Patient mildly confused. Could be related to narcotics and/or concussion but no hx of head injury. CT brain showing no acute findings. Check TSH, B12, VitD Continue to re-orient. Plan Code status: Full DVT prophylaxis: Lovenox Subjective Date/time seen: 12/30/24 13:04 Interval history: 79yo male with AFib on chronic anticoagulation, hypertension , COPD who p resented with left hip pain. Patient is awake but mildly confused. Denies cough or SOB. No CP. No nausea or vomiting. He has COPD. Exam Narrative: AF 97.5 102/69 84 20 95% 2L Gen - NARD Chest - few crackles appreciated in the flanks, clear anteriorly CV - RRR S1/S2 Abd - Soft, NT/ND, Positive BS Ext - No pedal edema, 2+ PT pulses bilaterally. LLE is foreshortened Neuro - Alert but mildly confused. Oriented to location. ANGULO except for LLE Psych - pleasant and cooperative. Skin - Warm and dry Objective Data Vital Signs Vital Signs: Vital Signs - 24 hr 12/29/24 14:15 12/29/24 14:16 12/29/24 17:32 Temperature 97.8 F Pulse Rate 98 Respiratory Rate 20 Blood Pressure 110/70 Pulse Oximetry 95 95 94 Oxygen Delivery Nasal Cannula Nasal Cannula Oxygen Flow Rate 1 1 Fraction of Inspired Oxygen 12/29/24 19:44 12/29/24 19:50 12/29/24 20:01 Temperature Pulse Rate 106 H 106 H 105 H Respiratory Rate 20 20 20 Blood Pressure Pulse Oximetry 91 Oxygen Delivery Nasal Cannula Oxygen Flow Rate 5 Fraction of Inspired Oxygen 40 12/29/24 20:34 12/29/24 20:43 12/29/24 21:53 Temperature 99.1 F Pulse Rate 105 H 96 Respiratory Rate 22 H Blood Pressure 113/59 L Pulse Oximetry 90 91 Oxygen Delivery Nasal Cannula Oxygen Flow Rate 2 Fraction of Inspired Oxygen 12/29/24 22:41 12/30/24 01:53 12/30/24 01:54 Temperature Pulse Rate 91 84 90 Respiratory Rate 20 Blood Pressure Pulse Oximetry 91 Oxygen Delivery Autopap Nasal Cannula Oxygen Flow Rate Fraction of Inspired Oxygen 12/30/24 02:05 12/30/24 05:56 12/30/24 07:50 Temperature 97.5 F L Pulse Rate 90 79 80 Respiratory Rate 20 18 20 Blood Pressure 102/69 Pulse Oximetry 95 Oxygen Delivery Oxygen Flow Rate Fraction of Inspired Oxygen 12/30/24 07:56 12/30/24 08:10 12/30/24 09:13 Temperature Pulse Rate 90 84 84 Respiratory Rate 20 Blood Pressure Pulse Oximetry Oxygen Delivery Nasal Cannula Oxygen Flow Rate Fraction of Inspired Oxygen Intake/Output Intake/Output: Intake & Output 12/27/24 12/28/24 12/29/24 12/30/24 23:59 23:59 23:59 23:59 Intake Total 240 650 Output Total 600 375 Balance -360 275 Meds/Results Medications: Active Medications Generic Name Dose Route Start Last Admin Trade Name Freq PRN Reason Stop Dose Admin Acetaminophen 500 mg 12/29/24 15:05 12/29/24 22:33 Acetaminophen 500 Mg Tablet PO 500 mg Q4H PRN Administration Mild Pain (1-3) or Fever Albuterol 2 puff 12/29/24 18:50 Albuterol Sulfate (*Sp) Aerosol 1 Puff INHALATION Q4H PRN Shortness Of Breath Albuterol/Ipratropium 3 ml 12/29/24 20:00 12/30/24 07:52 Ipratropium 0.5 Mg/Albuterol Sulfate 2.5 Mg Ampul.Neb 3 Ml INHALATION 3 ml Q6HRT ALEXANDRU Administration Atorvastatin Calcium 20 mg 12/30/24 09:00 12/30/24 09:13 Atorvastatin 20 Mg Tablet BY MOUTH 20 mg DAILY ALEXANDRU Administration Enoxaparin Sodium 75 mg 12/29/24 15:35 12/30/24 03:34 Enoxaparin 80 Mg/0.8 Ml Syringe SUB-Q Not Given Q12H ALEXANDRU Finasteride 5 mg 12/30/24 09:00 12/30/24 09:13 Finasteride 5 Mg Tablet PO 5 mg DAILY ALEXANDRU Administration Fluticasone/Umeclidinium/Vilanterol 1 puff 12/30/24 09:00 12/30/24 07:56 Fluticasone/Umeclidin/Vilanter 100-62.5-25 Mcg Ellipta INHALATION 1 puff DAILY ALEXANDRU Administration Hydromorphone HCl 0.5 mg 12/29/24 22:17 12/30/24 12:01 Hydromorphone Hcl Inj (*Crx) 1 Mg/Ml Syr IV PUSH 0.5 mg Q3H PRN Administration Pain Rated 7-10 Levothyroxine Sodium 100 mcg 12/30/24 06:30 12/30/24 06:09 Levothyroxine Sodium 100 Mcg Tablet PO 100 mcg DAILY@0630 ALEXANDRU Administration Metoprolol Tartrate 25 mg 12/29/24 21:00 12/30/24 09:13 Metoprolol Tartrate 25 Mg Tablet PO 25 mg Q12HR ALEXANDRU Administration Ondansetron HCl 4 mg 12/29/24 13:17 Ondansetron Inj 4 Mg/2 Ml Vial IV PUSH 01/28/25 15:09 Q4H PRN Nausea Polyethylene Glycol 17 gm 12/30/24 12:00 12/30/24 12:05 Polyethylene Glycol 3350 17 Gm Powd.Pack PO 17 gm QAM ALEXANDRU Administration Fluticasone/Salmeterol 2 puff 12/29/24 20:00 12/30/24 07:52 Fluticasone/Salmeterol 115-21 Mcg Inhaler 1 Puff INHALATION 2 puff Q12HRT ALEXANDRU Administration Radiology Results: ITS Impressions Head CT 12/29/24 12:03 IMPRESSION: 1. No acute intracranial findings. Chest X-Ray 12/29/24 12:05 IMPRESSION: 1. No acute cardiopulmonary findings given portable technique. Foot X-Ray 12/29/24 12:05 IMPRESSION: 1. 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 No acute osseous abnormality. Knee X-Ray 12/29/24 12:08 IMPRESSION: 1. No left knee joint effusion or acute osseous abnormality. Hip/Pelvis X-Ray 12/29/24 12:28 Impression: Left femoral neck fracture Labs Labs: Laboratory Results - last 24 hr 12/29/24 12/29/24 12/29/24 11:06 18:09 22:57 WBC RBC Hgb Hct MCV MCH MCHC RDW Plt Count MPV Immature Gran % (Auto) Neut % (Auto) Lymph % (Auto) [place] % (Auto) Eos % (Auto) Baso % (Auto) Lymph # (Auto) [place] # (Auto) Eos # (Auto) Baso # (Auto) Abs Immat Gran (auto) Absolute Neuts (auto) Absolute Nucleated RBC Nucleated RBC % Oxyhemoglobin Not Reportable Sodium Potassium Chloride Carbon Dioxide Anion Gap BUN Creatinine Estim Creat Clear Calc Estimated GFR Glucose POC Capillary Glucose Calcium Total Bilirubin AST ALT Alkaline Phosphatase Total Protein Albumin Urine Color Yellow Urine Appearance Clear Urine pH 5.5 Ur Specific [place] 1.007 Urine Protein Negative Urine Glucose (UA) Negative Urine Ketones Negative Ur Blood (Man) Negative Urine Nitrate Negative Urine Bilirubin Negative Urine Urobilinogen 0.2 Leukocyte Esterase Rfl Trace H Urine RBC 0-2 Urine WBC 0-5 Ur Squamous Epith Cells None seen Urine Bacteria None seen Urine Casts 3-5 Influenza A (RT-PCR) Negative Influenza B (RT-PCR) Negative RSV (RT-PCR) Negative SARS-CoV-2 RNA (RT-PCR) Negative 12/30/24 12/30/24 12/30/24 05:42 07:27 11:14 WBC 11.3 H RBC 4.65 Hgb 13.8 L Hct 42.9 MCV 92.3 MCH 29.7 MCHC 32.2 RDW 14.3 Plt Count 194 MPV 10.7 H Immature Gran % (Auto) 0.4 Neut % (Auto) 77.3 H Lymph % (Auto) 7.6 L [place] % (Auto) 11.4 H Eos % (Auto) 2.4 Baso % (Auto) 0.9 Lymph # (Auto) 0.86 L [place] # (Auto) 1.3 H Eos # (Auto) 0.3 Baso # (Auto) 0.1 Abs Immat Gran (auto) 0.04 H Absolute Neuts (auto) 8.8 H Absolute Nucleated RBC 0.000 Nucleated RBC % 0.0 Oxyhemoglobin Sodium 138 Potassium 3.2 L Chloride 102 Carbon Dioxide 29 Anion Gap 7 BUN 25 H Creatinine 0.85 Estim Creat Clear Calc 57 Estimated GFR > 60 Glucose 81 POC Capillary Glucose 83 105 Calcium 8.8 Total Bilirubin 1.2 AST 33 ALT 18 Alkaline Phosphatase 63 Total Protein 6.1 L Albumin 3.6 Urine Color Urine Appearance Urine pH Ur Specific [place] Urine Protein Urine Glucose (UA) Urine Ketones Ur Blood (Man) Urine Nitrate Urine Bilirubin Urine Urobilinogen Leukocyte Esterase Rfl Urine RBC Urine WBC Ur Squamous Epith Cells Urine Bacteria Urine Casts Influenza A (RT-PCR) Influenza B (RT-PCR) RSV (RT-PCR) SARS-CoV-2 RNA (RT-PCR)
[2024-12-30] MEDS: ENOXAPARIN 80 MG/0.8 ML SYRINGE 75 MG SUB-Q (16:53)
[2024-12-31] VITALS (22 sets, daily range): BP systolic 103–139; BP diastolic 69–96; PULSE 68–95; RESP 14–26; TEMP 36.4–36.9; O2SAT 88–100
[2024-12-31] MEDS: HYDROmorphone HCL INJ (*CRX) 1 MG/ML SYR 0.5 MG IV PUSH ×3 (00:35→18:41)
[2024-12-31] MEDS: IPRATROPIUM 0.5 MG/ALBUTEROL SULFATE 2.5 MG AMPUL.NEB 3 ML INHALATION ×3 (02:05→21:30)
[2024-12-31] MEDS: LEVOTHYROXINE SODIUM 100 MCG TABLET PO (05:44)
[2024-12-31 06:08] LABS: Ammonia < 9 umol/L (9-30)
[2024-12-31 06:32] LABS: Hematocrit 44.2 % (42.0-52.0); Hemoglobin 14.0 g/dL (14.0-18.0); Immature Granulocyte Percent A 0.5 % (0-0.5); Lymphocytes Absolute Auto 0.59 K/mm3 (0.9-3.2); Mean Corpuscular HGB Conc 31.7 g/dl (32-36); Mean Corpuscular Hemoglobin 29.4 pg (26-34); Mean Corpuscular Volume 92.9 fl (80-100); Nucleated Red Blood Cells Absolute Auto 0.000 K/mm3 (0.0-0.012); Nucleated Red Blood Cells Perc 0.0 % (0.0-0.2); Platelet Count Result 192 k/mm3 (150-375); Red Blood Count 4.76 M/mm3 (4.6-6.20); White Blood Count 11.3 K/mm3 (4.5-10.0)
[2024-12-31 06:51] LABS: Anion Gap 9 mmol/L (4-12); Blood Urea Nitrogen 23 mg/dL (9-20); Calcium 8.6 mg/dL (8.4-10.2); Carbon Dioxide 28 mmol/L (22-30); Chloride 104 mmol/L (98-107); Estimated CRCL calculation 65 ml/min; Estimated Glomerular Filt Rate > 60; Glucose 103 mg/dL (65-110); Potassium 3.4 mmol/L (3.4-5.0); Sodium 141 mmol/L (137-145)
[2024-12-31 07:22] LABS: Thyroid Stimulating Hormone Reflex 0.609 uIU/mL (0.465-4.68)
[2024-12-31] MEDS: FLUTICASONE/UMECLIDIN/VILANTER 100-62.5-25 MCG ELLIPTA 1 PUFF INHALATION (08:00)
[2024-12-31 08:02] LABS: Vitamin B12 912.0 pg/mL (239-931)
[2024-12-31] MEDS: METOPROLOL TARTRATE 25 MG TABLET PO ×2 (08:22→20:27)
[2024-12-31] MEDS: POTASSIUM CHLORIDE INJ 40 MEQ in SODIUM CHLORIDE 0.9% IV 500 ML 130 MEQ IVPB (08:44)
--- NOTE | 2024-12-31 11:34 | PM.IMPN ---
Progress Note: A&P Assessment and Plan (1) Atrial fibrillation: Code(s): I48.91 - Unspecified atrial fibrillation Status: Acute (2) Adult hypothyroidism: Code(s): E03.9 - Hypothyroidism, unspecified Status: Acute (3) Closed fracture of neck of left femur: Qualifiers: Encounter type: initial encounter Qualified Code(s): S72.002A - Fracture of unspecified part of neck of left femur, initial encounter for closed fracture Code(s): S72.002A - Fracture of unspecified part of neck of left femur, initial encounter for closed fracture Status: Acute (4) Acute hypoxic respiratory failure: Code(s): J96.01 - Acute respiratory failure with hypoxia Status: Acute Plan 79-year-old male with past medical history of AFib on chronic anticoagulation, COPD, presented with ongoing left hip pain, was found to have left hip fracture, along with hypoxia. 1. Left femoral neck fracture: Appreciate orthopedics consult Pain control Plan for surgical intervention today Bedrest until then 2. Acute hypoxic respiratory failure: Blood gas on admission suggestive of hypoxia Continue with O2 support Continue with DuoNebs and Advair Echo with EF of 70%, grade 1 diastolic dysfunction Will give a trial of Lasix after surgery Influenza, RSV, COVID were negative Supplement potassium 3. Leukocytosis: improving leukocytosis Blood culture negative till date UA unremarkable on admission 4. History of atrial fibrillation: Continue with metoprolol 25 mg p.o. b.i.d., Continue with Lovenox 5. History of hypothyroidism: Continue with home dose levothyroxine 6. Code status: Full 7. DVT prophylaxis: Lovenox 8. Disposition: Pending improvement Time Spent With Patient Time: 39 minutes Subjective Date/time seen: 12/31/24 11:34 Interval history: No acute events overnight Review of Systems Review of Systems: All systems reviewed & are unremarkable except as noted in HPI and below Exam Narrative: Gen -no acute distress, on O2 support, 2 L Chest -few bibasilar crackles, decreased breath sounds CV -normal sinus rhythm Abd - Soft, NT/ND, Positive BS Ext - No pedal edema, 2+ PT pulses bilaterally. Neuro - Alert but mildly confused. Oriented to location. Psych - pleasant and cooperative. Skin - Warm and dry Objective Data Vital Signs Vital Signs: Vital Signs - 24 hr 12/30/24 13:50 12/30/24 13:51 12/30/24 14:00 Temperature 97.2 F L Pulse Rate 76 76 79 Respiratory Rate 20 20 20 Blood Pressure 109/82 Pulse Oximetry 96 100 Oxygen Delivery Nasal Cannula Oxygen Flow Rate 4 Fraction of Inspired Oxygen 40 12/30/24 20:57 12/30/24 21:25 12/30/24 21:35 Temperature 97.9 F Pulse Rate 88 88 85 Respiratory Rate 17 20 Blood Pressure 124/81 Pulse Oximetry 100 Oxygen Delivery Oxygen Flow Rate Fraction of Inspired Oxygen 12/30/24 21:40 12/30/24 21:45 12/30/24 21:45 Temperature Pulse Rate 85 87 85 Respiratory Rate 20 20 Blood Pressure Pulse Oximetry 97 97 Oxygen Delivery Nasal Cannula Autopap Oxygen Flow Rate 4 Fraction of Inspired Oxygen 36 12/31/24 02:05 12/31/24 02:15 12/31/24 02:50 Temperature Pulse Rate 76 83 83 Respiratory Rate 20 20 Blood Pressure Pulse Oximetry 96 Oxygen Delivery Autopap Oxygen Flow Rate Fraction of Inspired Oxygen 12/31/24 05:31 12/31/24 08:03 12/31/24 08:03 Temperature 98.4 F Pulse Rate 82 90 Respiratory Rate 19 20 Blood Pressure 116/69 Pulse Oximetry 92 97 Oxygen Delivery Nasal Cannula Oxygen Flow Rate 4 Fraction of Inspired Oxygen 12/31/24 08:12 12/31/24 08:22 Temperature Pulse Rate 95 91 Respiratory Rate 20 Blood Pressure Pulse Oximetry Oxygen Delivery Oxygen Flow Rate Fraction of Inspired Oxygen Intake/Output Intake/Output: Intake & Output 12/28/24 12/29/24 12/30/24 12/31/24 23:59 23:59 23:59 23:59 Intake Total 240 1268 100 Output Total 600 675 600 Balance -360 593 -500 Meds/Results Medications: Active Medications Generic Name Dose Route Start Last Admin Trade Name Freq PRN Reason Stop Dose Admin Acetaminophen 500 mg 12/29/24 15:05 12/29/24 22:33 Acetaminophen 500 Mg Tablet PO 500 mg Q4H PRN Administration Mild Pain (1-3) or Fever Albuterol 2 puff 12/29/24 18:50 Albuterol Sulfate (*Sp) Aerosol 1 Puff INHALATION Q4H PRN Shortness Of Breath Albuterol/Ipratropium 3 ml 12/29/24 20:00 12/31/24 08:00 Ipratropium 0.5 Mg/Albuterol Sulfate 2.5 Mg Ampul.Neb 3 Ml INHALATION 3 ml Q6HRT COUNT INCLUDES THE [facility] Administration Atorvastatin Calcium 20 mg 12/30/24 09:00 12/31/24 11:33 Atorvastatin 20 Mg Tablet BY MOUTH Not Given DAILY ALEXANDRU Enoxaparin Sodium 75 mg 12/29/24 15:35 12/31/24 02:37 Enoxaparin 80 Mg/0.8 Ml Syringe SUB-Q Not Given Q12H ALEXANDRU Finasteride 5 mg 12/30/24 09:00 12/31/24 11:33 Finasteride 5 Mg Tablet PO Not Given DAILY COUNT INCLUDES THE [facility] Fluticasone/Umeclidinium/Vilanterol 1 puff 12/30/24 09:00 12/31/24 08:00 Fluticasone/Umeclidin/Vilanter 100-62.5-25 Mcg Ellipta INHALATION 1 puff DAILY COUNT INCLUDES THE [facility] Administration Hydromorphone HCl 0.5 mg 12/29/24 22:17 12/31/24 00:35 Hydromorphone Hcl Inj (*Crx) 1 Mg/Ml Syr IV PUSH 0.5 mg Q3H PRN Administration Pain Rated 7-10 Potassium Chloride 40 meq/ 520 mls @ 130 mls/hr 12/31/24 08:45 12/31/24 08:44 Sodium Chloride IVPB 12/31/24 12:44 130 mls/hr ONCE ONE Administration Levothyroxine Sodium 100 mcg 12/30/24 06:30 12/31/24 05:44 Levothyroxine Sodium 100 Mcg Tablet PO 100 mcg DAILY@0630 COUNT INCLUDES THE [facility] Administration Metoprolol Tartrate 25 mg 12/29/24 21:00 12/31/24 08:22 Metoprolol Tartrate 25 Mg Tablet PO 25 mg Q12HR COUNT INCLUDES THE [facility] Administration Ondansetron HCl 4 mg 12/29/24 13:17 Ondansetron Inj 4 Mg/2 Ml Vial IV PUSH 01/28/25 15:09 Q4H PRN Nausea Polyethylene Glycol 17 gm 12/30/24 12:00 12/31/24 11:33 Polyethylene Glycol 3350 17 Gm Powd.Pack PO Not Given QAM COUNT INCLUDES THE [facility] Radiology Results: ITS Impressions Head CT 12/29/24 12:03 IMPRESSION: 1. No acute intracranial findings. Chest X-Ray 12/29/24 12:05 IMPRESSION: 1. No acute cardiopulmonary findings given portable technique. Foot X-Ray 12/29/24 12:05 IMPRESSION: 1. 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 No acute osseous abnormality. Knee X-Ray 12/29/24 12:08 IMPRESSION: 1. No left knee joint effusion or acute osseous abnormality. Hip/Pelvis X-Ray 12/29/24 12:28 Impression: Left femoral neck fracture Labs Labs: Laboratory Results - last 24 hr 12/30/24 12/30/24 12/31/24 16:37 19:40 05:54 WBC 11.3 H RBC 4.76 Hgb 14.0 Hct 44.2 MCV 92.9 MCH 29.4 MCHC 31.7 L RDW 14.2 Plt Count 192 MPV 11.2 H Immature Gran % (Auto) 0.5 Neut % (Auto) 83.9 H Lymph % (Auto) 5.2 L [place] % (Auto) 8.8 H Eos % (Auto) 1.2 Baso % (Auto) 0.4 Lymph # (Auto) 0.59 L [place] # (Auto) 1.0 H Eos # (Auto) 0.1 Baso # (Auto) 0.1 Abs Immat Gran (auto) 0.06 H Absolute Neuts (auto) 9.4 H Absolute Nucleated RBC 0.000 Nucleated RBC % 0.0 Sodium 141 Potassium 3.4 Chloride 104 Carbon Dioxide 28 Anion Gap 9 BUN 23 H Creatinine 0.74 Estim Creat Clear Calc 65 Estimated GFR > 60 Glucose 103 POC Capillary Glucose 121 H 113 H Calcium 8.6 Ammonia < 9 L Vitamin B12 912.0 Vitamin D 25-Hydroxy 45.6 Folate 9.6 TSH (Reflex) 0.609 12/31/24 07:29 WBC RBC Hgb Hct MCV MCH MCHC RDW Plt Count MPV Immature Gran % (Auto) Neut % (Auto) Lymph % (Auto) [place] % (Auto) Eos % (Auto) Baso % (Auto) Lymph # (Auto) [place] # (Auto) Eos # (Auto) Baso # (Auto) Abs Immat Gran (auto) Absolute Neuts (auto) Absolute Nucleated RBC Nucleated RBC % Sodium Potassium Chloride Carbon Dioxide Anion Gap BUN Creatinine Estim Creat Clear Calc Estimated GFR Glucose POC Capillary Glucose 111 H Calcium Ammonia Vitamin B12 Vitamin D 25-Hydroxy Folate TSH (Reflex) Quality VTE Prophylaxis VTE prophylaxis: pharmacologic ordered
[2024-12-31] MEDS: LACTATED RINGERS 1,000 ML 30 ML IV CONT ×2 (13:30→17:18)
--- NOTE | 2024-12-31 13:42 | PCRCNOTE ---
Patient in surgery, 1400 nebulizer omitted.
--- NOTE | 2024-12-31 13:46 | WPDHPUPDATE1 ---
History and Physical Update Update Date/Time: 12/31/24 13:46 History and Physical has been reviewed, including an updated exam of the patient. There are NO changes in the patient's condition. Risks, benefits, and alternatives have been discussed and questions answered. Patient agrees to proceed with procedure. Procedure is Left Hip Partial Replacement. Risks include but are not limited to Infection, Nerve Injury, Blood Vessel Injury, DVT, Dislocation, Limb Length Discrepancy, and they agree to proceed. Daughter Romelia present during interview
--- NOTE | 2024-12-31 14:04 | WPDANESEPPF ---
Anes - Initial Pre Proc Eval Procedure: Operation Date: 12/31/24 14:00 Proposed Procedures p Left Hip Hemiarthroplasty - Nathan Horne MD Date/Time: 12/31/24 14:04 Surgeon: Naomie Fournier MD Pre Op Diagnosis: left femoral neck fracture,copd Patient Data Age: 79 Gender: M Height: 1.68 m Weight: 74.9 kg Last Vital Signs Temp 36.9 C 12/31/24 05:31 Pulse 91 12/31/24 08:22 Resp 20 12/31/24 08:12 BP 116/69 12/31/24 05:31 Pulse Ox 94 12/31/24 08:48 O2 Del Method Nasal Cannula 12/31/24 08:48 O2 Flow Rate 2 12/31/24 08:48 FiO2 36 12/30/24 21:40 Allergies Allergy/AdvReac Type Severity Reaction Status Date / Time levofloxacin Allergy Mild Hives / Verified 12/29/24 15:10 Red Face Penicillins Allergy Unknown Unknown- Verified 12/29/24 15:10 A CHILD dimethicone (From Dermatix) Allergy Rash Verified 12/29/24 15:10 silicon dioxide (From Allergy Rash Verified 12/29/24 15:10 Dermatix) doxycycline AdvReac Unknown Nausea Verified 12/29/24 15:10 Home Medications ?Medication ?Instructions ?Recorded ?Confirmed ?Type aspirin 81 mg tablet,delayed 81 mg PO DAILY 04/09/19 12/29/24 History release fluticasone fur. 100 mcg-umeclid 1 inhalation inhalation DAILY 04/09/19 12/29/24 History 62.5 mcg-vilant 25 mcg inhalat.powder (Trelegy Ellipta) levothyroxine 100 mcg tablet 100 mcg PO QAM 11/25/19 12/29/24 History candesartan 32 1 tablet PO DAILY #90 tabs 11/26/19 12/29/24 Rx mg-hydrochlorothiazide 25 mg tablet albuterol sulfate 90 mcg/actuation 2 puff inhalation PRN PRN SOB 05/31/20 12/29/24 History aerosol inhaler ascorbic acid (vitamin C) 1,000 mg 1 g PO DAILY 06/29/20 12/29/24 History tablet loratadine [Claritin] 10 mg PO DAILY 06/29/20 12/29/24 History selenium 200 mcg tablet 200 mcg PO DAILY 06/29/20 12/29/24 History metoprolol tartrate 25 mg tablet 25 mg PO BID #180 tabs 11/25/20 12/29/24 Rx atorvastatin 20 mg tablet See Rx Instructions .Route 11/29/21 12/29/24 Rx .COMPLEX #90 tabs apixaban 5 mg tablet (Eliquis) 5 mg PO BID 03/20/23 12/29/24 History finasteride 5 mg tablet 5 mg PO DAILY #30 tabs 03/29/23 12/29/24 Rx Laboratory Tests 12/30/24 12/30/24 12/31/24 16:37 19:40 05:54 WBC 11.3 H K/mm3 (4.5-10.0) RBC 4.76 M/mm3 (4.6-6.20) Hgb 14.0 g/dL (14.0-18.0) Hct 44.2 % (42.0-52.0) MCV 92.9 fl (80-100) MCH 29.4 pg (26-34) MCHC 31.7 L g/dl (32-36) RDW 14.2 % (11.5-14.5) Plt Count 192 k/mm3 (150-375) MPV 11.2 H fl (7.4-10.4) Immature Gran % (Auto) 0.5 % (0-0.5) Neut % (Auto) 83.9 H % (45.5-73.1) Lymph % (Auto) 5.2 L % (18.3-44.2) [place] % (Auto) 8.8 H % (2.6-8.5) Eos % (Auto) 1.2 % (0-4.4) Baso % (Auto) 0.4 % (0.2-1.2) Lymph # (Auto) 0.59 L K/mm3 (0.9-3.2) [place] # (Auto) 1.0 H K/mm3 (0.1-0.6) Eos # (Auto) 0.1 K/mm3 (0-0.3) Baso # (Auto) 0.1 K/mm3 (0.0-0.1) Abs Immat Gran (auto) 0.06 H K/mm3 (0.00-0.031) Absolute Neuts (auto) 9.4 H K/mm3 (1.3-6.7) Absolute Nucleated RBC 0.000 K/mm3 (0.0-0.012) Nucleated RBC % 0.0 % (0.0-0.2) Sodium 141 mmol/L (137-145) Potassium 3.4 mmol/L (3.4-5.0) Chloride 104 mmol/L (98-107) Carbon Dioxide 28 mmol/L (22-30) Anion Gap 9 mmol/L (4-12) BUN 23 H mg/dL (9-20) Creatinine 0.74 mg/dL (0.7-1.3) Estim Creat Clear Calc 65 ml/min Estimated GFR > 60 (59 - ) Glucose 103 mg/dL (65-110) POC Capillary Glucose 121 H mg/dl 113 H mg/dl (65-105) (65-105) Calcium 8.6 mg/dL (8.4-10.2) Ammonia < 9 L umol/L (9-30) Vitamin B12 912.0 pg/mL (239-931) Vitamin D 25-Hydroxy 45.6 ng/mL Folate 9.6 ng/mL (2.76->20) TSH (Reflex) 0.609 uIU/mL (0.465-4.68) Blood Type Antibody Screen 12/31/24 12/31/24 12/31/24 07:29 11:33 13:38 WBC RBC Hgb Hct MCV MCH MCHC RDW Plt Count MPV Immature Gran % (Auto) Neut % (Auto) Lymph % (Auto) [place] % (Auto) Eos % (Auto) Baso % (Auto) Lymph # (Auto) [place] # (Auto) Eos # (Auto) Baso # (Auto) Abs Immat Gran (auto) Absolute Neuts (auto) Absolute Nucleated RBC Nucleated RBC % Sodium Potassium Chloride Carbon Dioxide Anion Gap BUN Creatinine Estim Creat Clear Calc Estimated GFR Glucose POC Capillary Glucose 111 H mg/dl 97 mg/dl (65-105) (65-105) Calcium Ammonia Vitamin B12 Vitamin D 25-Hydroxy Folate TSH (Reflex) Blood Type Pending Antibody Screen Pending Patient hx anesthesia problems: none Family hx anesthesia problems: none Results Review: All pre-operative results and documents have been reviewed as part of the pre-operative evaluation. [facility] Past Medical History Medical History History of heart attack 2018 Atrial fibrillation History of non-ST elevation myocardial infarction (NSTEMI) Tobacco abuse CAD in [place] artery COPD (chronic obstructive pulmonary disease) History of SCC (squamous cell carcinoma) of skin History of malignant neoplasm of bladder Hypoglycemia Adult hypothyroidism Mixed hyperlipidemia KARTHIK on CPAP Paroxysmal atrial fibrillation with rapid ventricular response Personal history of nicotine dependence Neuroma of right lower extremity after surgery Malignant neoplasm of bladder Essential (primary) hypertension Hyperlipidemia Surgical History Surgical History History of bladder surgery Family History Family History Sibling Family history of diabetes mellitus in first degree relative Family history of heart disease in male family member before age 55 Mother Family history of heart disease in male family member before age 55 Father Acute myocardial infarction Social History Social History Smoking packs per day: 1 Smoking cigarettes per day: 20.0 Years smoked: 31 Smoking pack-years: 31.00 Smoking status: Current every day smoker Tobacco type: cigarettes Second hand tobacco smoke exposure: Yes Alcohol intake: former Drinks per week: 21 Alcohol use details: VODKA - STATES QUIT SOMETIME IN 2021 Substance use: never Substance use type: does not use Do You Feel Safe in your Home?: Yes Lack of Transportation: No Lack of Food: Never True Current Housing: I Have Housing Concerned About Future Housing: No Difficulty Paying Gas/Electric Bills: No Difficulty Paying for Meds: No Currently Unemployed: No Education: High School Diploma/GED Difficulty w/ Childcare or Family Care: Decline to Answer Living arrangements: with family Spiritual care concerns: No Anes - Eval Final PreProcedure Day of Procedure 12/31/24 14:04 Patient weight: overweight Heart: regular rate and rhythm Lungs: clear to auscultation Airway: Mallampati scale class II Neurological: alert and oriented Last oral intake: >/= 8 hours ASA classification: IV Emergent: no Anesthetic plan: proceed Anesthesia type and monitoring: general ETT and standard monitoring Results Review: All pre-operative results and documents have been reviewed as part of the pre-operative evaluation. Informed Consent: The patient's anesthetic plan and its attendant risks and benefits were discussed with the patient/family/POA. Questions were solicited and answers provided to the satisfaction of the patient/family/POA.
[2024-12-31] MEDS: ceFAZolin 2 GM in SODIUM CHLORIDE 0.9% IV 50 ML 100 ML IVPB ×2 (14:23→20:21)
[2024-12-31] MEDS: VANCOMYCIN HCL 1,000 MG in SODIUM CHLORIDE 0.9% IV 250 ML 250 MG IVPB (15:21)
[2024-12-31] MEDS: LIDO 1%/EPINEPHRINE 1:100,000 20 ML VIAL 30 ML INFILTRATE (15:25)
[2024-12-31] MEDS: HYDROmorphone HCL INJ (*CRX) 1 MG/ML SYR 0.25 MG IV PUSH ×4 (16:44→17:15)
--- NOTE | 2024-12-31 16:45 | W.PM.PROC2 ---
Procedure Note - Detailed Date of Procedure 12/31/24 Pre-op Diagnosis left femoral neck fracture Post-op Diagnosis Same Procedure Performed Left hip Hemiarthroplasty Surgeon Nathan Horne MD Anesthesia General Indications 79 yr old male s/p fall at home with a displaced left hip femoral neck fracture. Findings Left hip femoral neck fracture Description of Procedure The patient was interviewed in the holding area prior to the surgery. At this time, a focused physical exam was performed. Confirmation with the patient and all family members present regarding the planned procedure. The correct site of surgery was then marked with an indelible marker with all parties acknowledging the correct site of surgery and confirming their understanding of the planned procedure. Once again, the risks benefits alternatives and complications were discussed with all present during the interview. They all agreed to proceed with the planned procedure. The patient was then taken to the Operating Room, placed in the supine position. General Anesthesia performed. Then the patient was placed in the lateral decubitus position with axillary roll, and a soft pad placed to protect the contra-lateral peroneal nerve. Peg board was used for positioning. - The Left Hip was prepped and draped in the standard sterile fashion. - TIME OUT performed prior to incision to verify correct patient, correct procedure, correct site of surgery and to verify the administration of IV Abx within 1 hr of incision time. - A posterior approach to the hip was performed. - Incision made with a knife. - dissection carried down to the level of the IT Band. - IT band sharply incised. - Charnley retractor placed. - Hip then internally rotated - Pyriformis Identified and tagged. - Short External Rotators identified and tagged. - Capsulotomy performed and capsule tagged - femoral neck fracture identified - femoral neck cut with a saw - femoral head removed with a cork screw and measured - box osteotome used to create opening into femoral canal with anatomic anteversion - manual reamer used to enter into the canal. - broached up to appropriate Size #6 - Trial was performed with 0 neck length and standard offset - Trial reduced and stability and limb length checked. - both were good. - final implant requested and inserted - stability and limb length again check - both were good. Irrigation of surgical site with pulsatile irrigation - Capsule and pyriformis repair to the posterior greater troch through 2 drill holes _ IT band closed in interrupted fashion Skin closed with vicryl suture then stapled and bandaged in a sterile fashion. Patient then transferred to recovery room. Implants [place] Accolade II Stem #6, Bipolar component 49mm, Standard Offset with 0 Neck length. Estimated Blood Loss 100 Urine Output 600 Drains No Packing No Pathology None sent Complications No immediate complications Condition Stable Disposition PACU
--- NOTE | 2024-12-31 17:51 | SUR.PHASEI ---
PATIENT ATTEMPTED TO REMOVE IV; CHANGED TEGADERM; FLUSHED WELL WITH NS. PATIENT ORIENTED TO PERSON BUT NOT TO PLACE.
[2025-01-01] VITALS (14 sets, daily range): BP systolic 108–130; BP diastolic 72–82; PULSE 55–105; RESP 16–22; TEMP 36.4–37.1; O2SAT 93–98
[2025-01-01] MEDS: HYDROmorphone HCL INJ (*CRX) 1 MG/ML SYR 0.5 MG IV PUSH ×6 (00:04→23:21)
[2025-01-01] MEDS: IPRATROPIUM 0.5 MG/ALBUTEROL SULFATE 2.5 MG AMPUL.NEB 3 ML INHALATION ×4 (02:30→21:52)
[2025-01-01] MEDS: ceFAZolin 2 GM in SODIUM CHLORIDE 0.9% IV 50 ML 100 ML IVPB ×2 (03:39→12:47)
[2025-01-01] MEDS: ENOXAPARIN 80 MG/0.8 ML SYRINGE 75 MG SUB-Q ×2 (03:39→15:36)
[2025-01-01] MEDS: LEVOTHYROXINE SODIUM 100 MCG TABLET PO (05:23)
[2025-01-01] MEDS: ALBUTEROL SULFATE (*SP) AEROSOL 1 PUFF 2 PUFF INHALATION (05:54)
--- NOTE | 2025-01-01 06:14 | PC.NURSE ---
pt c/o of sob respiratory called at this time prn albuterol given. pt saturations 95 2 liters refuses to wear CPAP. lungs sounds coarse in all lung lai attempted to call hospitalist Andreea burris with out success will attempt to call again to suggest an cxr
[2025-01-01 06:15] LABS: Hematocrit 39.4 % (42.0-52.0); Hemoglobin 12.4 g/dL (14.0-18.0); Immature Granulocyte Percent A 0.4 % (0-0.5); Lymphocytes Absolute Auto 0.46 K/mm3 (0.9-3.2); Mean Corpuscular HGB Conc 31.5 g/dl (32-36); Mean Corpuscular Hemoglobin 29.6 pg (26-34); Mean Corpuscular Volume 94.0 fl (80-100); Nucleated Red Blood Cells Absolute Auto 0.000 K/mm3 (0.0-0.012); Nucleated Red Blood Cells Perc 0.0 % (0.0-0.2); Platelet Count Result 208 k/mm3 (150-375); Red Blood Count 4.19 M/mm3 (4.6-6.20); White Blood Count 13.4 K/mm3 (4.5-10.0)
[2025-01-01 06:39] LABS: Anion Gap 11 mmol/L (4-12); Blood Urea Nitrogen 21 mg/dL (9-20); Calcium 8.3 mg/dL (8.4-10.2); Carbon Dioxide 22 mmol/L (22-30); Chloride 110 mmol/L (98-107); Estimated CRCL calculation 65 ml/min; Estimated Glomerular Filt Rate > 60; Glucose 116 mg/dL (65-110); Magnesium 2.2 mg/dL (1.6-2.3); Potassium 3.9 mmol/L (3.4-5.0); Sodium 143 mmol/L (137-145)
--- NOTE | 2025-01-01 06:53 | PC.NURSE ---
received orders for an cxr per hospitalist Andreea wright
[2025-01-01] MEDS: FLUTICASONE/UMECLIDIN/VILANTER 100-62.5-25 MCG ELLIPTA 1 PUFF INHALATION (09:33)
[2025-01-01] MEDS: ASCORBIC ACID 500 MG TABLET 1000 MG PO (09:35)
[2025-01-01] MEDS: FINASTERIDE 5 MG TABLET PO (09:35)
[2025-01-01] MEDS: ATORVASTATIN 20 MG TABLET BY MOUTH (09:35)
[2025-01-01] MEDS: SENNA/DOCUSATE SODIUM TABLET 2 TAB PO ×2 (09:35→18:20)
[2025-01-01] MEDS: METOPROLOL TARTRATE 25 MG TABLET PO (09:36)
[2025-01-01] MEDS: ASPIRIN 81 MG ENTERIC TABLET PO (09:36)
[2025-01-01] MEDS: FUROSEMIDE INJ 40 MG/4 ML VIAL IV PUSH (09:37)
[2025-01-01] MEDS: FUROSEMIDE INJ 40 MG/4 ML VIAL 20 MG IV PUSH (09:40)
--- NOTE | 2025-01-01 12:42 | PM.IMPN ---
Progress Note: A&P Assessment and Plan (1) Atrial fibrillation: Code(s): I48.91 - Unspecified atrial fibrillation Status: Acute (2) Adult hypothyroidism: Code(s): E03.9 - Hypothyroidism, unspecified Status: Acute (3) Closed fracture of neck of left femur: Qualifiers: Encounter type: initial encounter Qualified Code(s): S72.002A - Fracture of unspecified part of neck of left femur, initial encounter for closed fracture Code(s): S72.002A - Fracture of unspecified part of neck of left femur, initial encounter for closed fracture Status: Acute (4) Acute hypoxic respiratory failure: Code(s): J96.01 - Acute respiratory failure with hypoxia Status: Acute Plan 79-year-old male with past medical history of AFib on chronic anticoagulation, COPD, presented with ongoing left hip pain, was found to have left hip fracture, along with hypoxia. 1. Left femoral neck fracture: Appreciate orthopedics consult Pain control Status post left hip hemiarthroplasty, postop day 1 PT/OT as tolerated as per protocol 2. 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 Leukocytosis: Leukocytosis worse today, likely in setting of surgery Blood culture negative till date UA unremarkable on admission 4. History of atrial fibrillation: Increase metoprolol to 37.5 mg p.o. b.i.d. Continue with Lovenox Will switch to oral agent when okay with Orthopedics(takes 5 mg of Eliquis b.i.d. at home) 5. History of hypothyroidism: Continue with home dose levothyroxine 6. Code status: Full 7. DVT prophylaxis: Lovenox 8. Disposition: Pending improvement Time Spent With Patient Time: 39 minutes Subjective Date/time seen: 01/01/25 12:42 Interval history: Status post left hip hemiarthroplasty, postop day 1 Review of Systems Review of Systems: All systems reviewed & are unremarkable except as noted in HPI and below Exam Narrative: Gen -no acute distress, on O2 support, 2 L Chest -few bibasilar crackles, decreased breath sounds CV -normal sinus rhythm Abd - Soft, NT/ND, Positive BS Ext -dressing present over left hip Neuro -alert and oriented Psych - pleasant and cooperative. Skin - Warm and dry Objective Data Vital Signs Vital Signs: Vital Signs - 24 hr 12/31/24 14:19 12/31/24 16:30 12/31/24 16:45 Temperature 98.1 F 97.5 F L Pulse Rate 85 68 78 Respiratory Rate 16 14 20 Blood Pressure 130/94 H 103/72 136/87 Pulse Oximetry 95 100 100 Oxygen Delivery Nasal Cannula Simple Face Mask Simple Face Mask Oxygen Flow Rate 2 6 6 12/31/24 17:00 12/31/24 17:15 12/31/24 17:30 Temperature Pulse Rate 79 80 81 Respiratory Rate 20 20 24 H Blood Pressure 138/96 H 139/87 136/87 Pulse Oximetry 100 99 99 Oxygen Delivery Nasal Cannula Nasal Cannula Nasal Cannula Oxygen Flow Rate 3 3 3 12/31/24 18:00 12/31/24 18:15 12/31/24 20:00 Temperature 97.6 F 97.7 F Pulse Rate 80 85 Respiratory Rate 16 18 Blood Pressure 133/91 H 132/79 Pulse Oximetry 97 97 100 Oxygen Delivery Nasal Cannula Oxygen Flow Rate 2 12/31/24 20:27 12/31/24 21:39 12/31/24 22:00 Temperature Pulse Rate 76 84 84 Respiratory Rate 26 H Blood Pressure Pulse Oximetry 97 Oxygen Delivery Nasal Cannula Oxygen Flow Rate 2 12/31/24 22:26 12/31/24 23:25 01/01/25 02:26 Temperature 98.4 F 98.4 F Pulse Rate 87 90 Respiratory Rate 20 18 Blood Pressure 137/83 126/81 Pulse Oximetry 98 88 L 97 Oxygen Delivery Nasal Cannula Oxygen Flow Rate 1 01/01/25 06:26 01/01/25 08:20 01/01/25 08:36 Temperature 98.6 F Pulse Rate 55 L Respiratory Rate 22 H Blood Pressure 130/82 Pulse Oximetry 95 Oxygen Delivery Nasal Cannula Nasal Cannula Oxygen Flow Rate 2 2 01/01/25 09:30 01/01/25 09:33 01/01/25 09:36 Temperature Pulse Rate 101 H 105 H Respiratory Rate 19 Blood Pressure Pulse Oximetry 94 Oxygen Delivery Nasal Cannula Oxygen Flow Rate 2 01/01/25 09:38 01/01/25 09:40 Temperature Pulse Rate 101 H 102 H Respiratory Rate 18 Blood Pressure Pulse Oximetry 93 Oxygen Delivery Nasal Cannula Oxygen Flow Rate 2 Intake/Output Intake/Output: Intake & Output 12/29/24 12/30/24 12/31/24 01/01/25 23:59 23:59 23:59 23:59 Intake Total 240 1268 650 240 Output Total 161 327 5647 400 Balance -360 149 -027 -160 Meds/Results Medications: Active Medications Generic Name Dose Route Start Last Admin Trade Name Freq PRN Reason Stop Dose Admin Acetaminophen 500 mg 12/29/24 15:05 12/29/24 22:33 Acetaminophen 500 Mg Tablet PO 500 mg Q4H PRN Administration Mild Pain (1-3) or Fever Albuterol 2 puff 12/29/24 18:50 01/01/25 05:54 Albuterol Sulfate (*Sp) Aerosol 1 Puff INHALATION 2 puff Q4H PRN Administration Shortness Of Breath Albuterol/Ipratropium 3 ml 12/29/24 20:00 01/01/25 09:32 Ipratropium 0.5 Mg/Albuterol Sulfate 2.5 Mg Ampul.Neb 3 Ml INHALATION 3 ml Q6HRT ALEXANDRU Administration Ascorbic Acid 1,000 mg 01/01/25 09:00 01/01/25 09:35 Ascorbic Acid 500 Mg Tablet PO 1,000 mg DAILY ALEXANDRU Administration Aspirin 81 mg 01/01/25 09:00 01/01/25 09:36 Aspirin 81 Mg Enteric Tablet PO 81 mg DAILY ALEXANDRU Administration Atorvastatin Calcium 20 mg 12/30/24 09:00 01/01/25 09:35 Atorvastatin 20 Mg Tablet BY MOUTH 20 mg DAILY ALEXANDRU Administration Enoxaparin Sodium 75 mg 12/29/24 15:35 01/01/25 03:39 Enoxaparin 80 Mg/0.8 Ml Syringe SUB-Q 75 mg Q12H ALEXANDRU Administration Finasteride 5 mg 12/30/24 09:00 01/01/25 09:35 Finasteride 5 Mg Tablet PO 5 mg DAILY ALEXANDRU Administration Fluticasone/Umeclidinium/Vilanterol 1 puff 12/30/24 09:00 01/01/25 09:33 Fluticasone/Umeclidin/Vilanter 100-62.5-25 Mcg Ellipta INHALATION 1 puff DAILY ALEXANDRU Administration Furosemide 20 mg 01/01/25 09:00 01/01/25 09:40 Furosemide Inj 40 Mg/4 Ml Vial IV PUSH 20 mg DAILY ALEXANDRU Administration Hydromorphone HCl 0.5 mg 12/29/24 22:17 01/01/25 09:40 Hydromorphone Hcl Inj (*Crx) 1 Mg/Ml Syr IV PUSH 0.5 mg Q3H PRN Administration Pain Rated 7-10 Hydroxyzine Pamoate 50 mg 12/31/24 16:40 Hydroxyzine Pamoate 25 Mg Capsule PO Q4H PRN Itching Levothyroxine Sodium 100 mcg 01/01/25 06:30 01/01/25 05:23 Levothyroxine Sodium 100 Mcg Tablet PO 100 mcg DAILY@0630 [facility] Administration Metoprolol Tartrate 37.5 mg 01/01/25 21:00 Metoprolol Tartrate 12.5 Mg Tablet PO Q12HR [facility] Naloxone HCl 0.1 mg 12/31/24 16:40 Naloxone Hcl 0.4 Mg/Ml Vial IV PUSH Q2M PRN Opiate Reversal Non-Formulary Medication 1 each 12/31/24 18:05 Nonformulary Nutritional Supplement XX 01/01/25 18:04 PRN PRN PROTOCOL Ondansetron HCl 4 mg 12/31/24 16:40 Ondansetron Inj 4 Mg/2 Ml Vial IV PUSH Q4H PRN Nausea And Vomiting Polyethylene Glycol 17 gm 12/30/24 12:00 01/01/25 09:36 Polyethylene Glycol 3350 17 Gm Powd.Pack PO 17 gm QAM [facility] Administration Senna/Docusate Sodium 2 tab 12/31/24 17:00 01/01/25 09:35 Senna/Docusate Sodium Tablet PO 2 tab BID ALEXANDRU Administration Radiology Results: ITS Impressions Head CT 12/29/24 12:03 IMPRESSION: 1. No acute intracranial findings. Foot X-Ray 12/29/24 12:05 IMPRESSION: 1. 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 No acute osseous abnormality. Knee X-Ray 12/29/24 12:08 IMPRESSION: 1. No left knee joint effusion or acute osseous abnormality. Hip/Pelvis X-Ray 12/29/24 12:28 Impression: Left femoral neck fracture Hip X-Ray 12/31/24 16:42 Impression: No acute fracture or malalignment. Chest X-Ray 01/01/25 09:10 Impression: Early bilateral pneumonia Labs Labs: Laboratory Results - last 24 hr 12/31/24 01/01/25 01/01/25 13:38 06:06 07:36 WBC 13.4 H RBC 4.19 L Hgb 12.4 L Hct 39.4 L MCV 94.0 MCH 29.6 MCHC 31.5 L RDW 14.3 Plt Count 208 MPV 10.6 H Immature Gran % (Auto) 0.4 Neut % (Auto) 86.4 H Lymph % (Auto) 3.4 L [place] % (Auto) 9.3 H Eos % (Auto) 0.1 Baso % (Auto) 0.4 Lymph # (Auto) 0.46 L [place] # (Auto) 1.3 H Eos # (Auto) 0.0 Baso # (Auto) 0.1 Abs Immat Gran (auto) 0.05 H Absolute Neuts (auto) 11.6 H Absolute Nucleated RBC 0.000 Nucleated RBC % 0.0 Sodium 143 Potassium 3.9 Chloride 110 H Carbon Dioxide 22 Anion Gap 11 BUN 21 H Creatinine 0.74 Estim Creat Clear Calc 65 Estimated GFR > 60 Glucose 116 H POC Capillary Glucose 117 H Calcium 8.3 L Magnesium 2.2 Blood Type B Positive Antibody Screen Negative 01/01/25 11:27 WBC RBC Hgb Hct MCV MCH MCHC RDW Plt Count MPV Immature Gran % (Auto) Neut % (Auto) Lymph % (Auto) [place] % (Auto) Eos % (Auto) Baso % (Auto) Lymph # (Auto) [place] # (Auto) Eos # (Auto) Baso # (Auto) Abs Immat Gran (auto) Absolute Neuts (auto) Absolute Nucleated RBC Nucleated RBC % Sodium Potassium Chloride Carbon Dioxide Anion Gap BUN Creatinine Estim Creat Clear Calc Estimated GFR Glucose POC Capillary Glucose 184 H Calcium Magnesium Blood Type Antibody Screen Quality VTE Prophylaxis VTE prophylaxis: pharmacologic ordered
[2025-01-01] MEDS: METOPROLOL TARTRATE 12.5 MG TABLET 37.5 MG PO (20:16)
[2025-01-02] VITALS (14 sets, daily range): BP systolic 110–121; BP diastolic 83–84; PULSE 68–95; RESP 16–20; TEMP 36.5–37.4; O2SAT 93–99
[2025-01-02] MEDS: ACETAMINOPHEN 500 MG TABLET PO ×2 (02:11→08:33)
[2025-01-02] MEDS: IPRATROPIUM 0.5 MG/ALBUTEROL SULFATE 2.5 MG AMPUL.NEB 3 ML INHALATION ×4 (02:35→20:17)
[2025-01-02] MEDS: ENOXAPARIN 80 MG/0.8 ML SYRINGE 75 MG SUB-Q ×2 (04:19→14:34)
[2025-01-02] MEDS: LEVOTHYROXINE SODIUM 100 MCG TABLET PO (05:52)
[2025-01-02 06:06] LABS: Hematocrit 33.5 % (42.0-52.0); Hemoglobin 10.7 g/dL (14.0-18.0); Immature Granulocyte Percent A 0.5 % (0-0.5); Lymphocytes Absolute Auto 0.85 K/mm3 (0.9-3.2); Mean Corpuscular HGB Conc 31.9 g/dl (32-36); Mean Corpuscular Hemoglobin 29.8 pg (26-34); Mean Corpuscular Volume 93.3 fl (80-100); Nucleated Red Blood Cells Absolute Auto 0.000 K/mm3 (0.0-0.012); Nucleated Red Blood Cells Perc 0.0 % (0.0-0.2); Platelet Count Result 174 k/mm3 (150-375); Red Blood Count 3.59 M/mm3 (4.6-6.20); White Blood Count 9.8 K/mm3 (4.5-10.0)
[2025-01-02] MEDS: FLUTICASONE/UMECLIDIN/VILANTER 100-62.5-25 MCG ELLIPTA 1 PUFF INHALATION (07:28)
[2025-01-02 07:52] LABS: Anion Gap 4 mmol/L (4-12); Blood Urea Nitrogen 22 mg/dL (9-20); Calcium 8.2 mg/dL (8.4-10.2); Carbon Dioxide 30 mmol/L (22-30); Chloride 106 mmol/L (98-107); Estimated CRCL calculation 67 ml/min; Estimated Glomerular Filt Rate > 60; Glucose 119 mg/dL (65-110); Potassium 3.1 mmol/L (3.4-5.0); Sodium 140 mmol/L (137-145)
[2025-01-02] MEDS: HYDROmorphone HCL INJ (*CRX) 1 MG/ML SYR 0.5 MG IV PUSH ×2 (08:30→12:20)
[2025-01-02] MEDS: FINASTERIDE 5 MG TABLET PO (08:31)
[2025-01-02] MEDS: METOPROLOL TARTRATE 12.5 MG TABLET 37.5 MG PO ×2 (08:31→20:16)
[2025-01-02] MEDS: FUROSEMIDE INJ 40 MG/4 ML VIAL 20 MG IV PUSH (08:31)
[2025-01-02] MEDS: ATORVASTATIN 20 MG TABLET BY MOUTH (08:33)
[2025-01-02] MEDS: SENNA/DOCUSATE SODIUM TABLET 2 TAB PO (08:33)
[2025-01-02] MEDS: ASPIRIN 81 MG ENTERIC TABLET PO (08:33)
[2025-01-02] MEDS: ASCORBIC ACID 500 MG TABLET 1000 MG PO (08:33)
--- NOTE | 2025-01-02 13:58 | PM.PNORT ---
Progress Note: A&P Assessment and Plan (1) Closed fracture of neck of left femur: Qualifiers: Encounter type: initial encounter Qualified Code(s): S72.002A - Fracture of unspecified part of neck of left femur, initial encounter for closed fracture Code(s): S72.002A - Fracture of unspecified part of neck of left femur, initial encounter for closed fracture Status: Acute Assessment and Plan: Post Op Day 2 - doing well with physical therapy - increase pain medications Leticia - follow up with my office 2 weeks after discharge - dressing change in 10 days from date of surgery. - recommend anti-coagulation for DVT prophylaxis for 4 wks from Date of surgery Subjective Subjective Date/Time Seen: 01/02/25 13:58 Principal diagnosis: s/p Left Hip David Interval history: Moderate Left hip pain today. Exam Narrative: Left Hip band and dry Objective Data Vital Signs Vital Signs: Vital Signs - 24 hr 01/01/25 14:26 01/01/25 16:03 01/01/25 20:11 Temperature 36.4 C Pulse Rate 91 Respiratory Rate 18 Blood Pressure 119/72 Pulse Oximetry 94 94 94 Oxygen Delivery Nasal Cannula Nasal Cannula Oxygen Flow Rate 1 2 01/01/25 20:16 01/01/25 21:52 01/01/25 21:52 Temperature Pulse Rate 95 92 Respiratory Rate 20 Blood Pressure Pulse Oximetry 95 Oxygen Delivery Nasal Cannula Oxygen Flow Rate 2 01/02/25 02:35 01/02/25 02:42 01/02/25 03:00 Temperature Pulse Rate 68 Respiratory Rate 16 Blood Pressure Pulse Oximetry 97 94 Oxygen Delivery Nasal Cannula Nasal Cannula Oxygen Flow Rate 1 1 01/02/25 06:10 01/02/25 07:26 01/02/25 08:31 Temperature 37.4 C Pulse Rate 90 70 84 Respiratory Rate 18 18 Blood Pressure 118/84 Pulse Oximetry 96 Oxygen Delivery Oxygen Flow Rate Intake/Output Intake/Output: Intake & Output 12/30/24 12/31/24 01/01/25 01/02/25 23:59 23:59 23:59 23:59 Intake Total 3422 960 3769 240 Output Total 675 1200 900 700 Balance 593 -550 110 -460 Meds/Results Medications: Active Medications Generic Name Dose Route Start Last Admin Trade Name Freq PRN Reason Stop Dose Admin Acetaminophen 500 mg 12/29/24 15:05 01/02/25 08:33 Acetaminophen 500 Mg Tablet PO 500 mg Q4H PRN Administration Mild Pain (1-3) or Fever Albuterol 2 puff 12/29/24 18:50 01/01/25 05:54 Albuterol Sulfate (*Sp) Aerosol 1 Puff INHALATION 2 puff Q4H PRN Administration Shortness Of Breath Albuterol/Ipratropium 3 ml 12/29/24 20:00 01/02/25 07:25 Ipratropium 0.5 Mg/Albuterol Sulfate 2.5 Mg Ampul.Neb 3 Ml INHALATION 3 ml Q6HRT ALEXANDRU Administration Ascorbic Acid 1,000 mg 01/01/25 09:00 01/02/25 08:33 Ascorbic Acid 500 Mg Tablet PO 1,000 mg DAILY ALEXANDRU Administration Aspirin 81 mg 01/01/25 09:00 01/02/25 08:33 Aspirin 81 Mg Enteric Tablet PO 81 mg DAILY ALEXANDRU Administration Atorvastatin Calcium 20 mg 12/30/24 09:00 01/02/25 08:33 Atorvastatin 20 Mg Tablet BY MOUTH 20 mg DAILY ALEXANDRU Administration Enoxaparin Sodium 75 mg 12/29/24 15:35 01/02/25 04:19 Enoxaparin 80 Mg/0.8 Ml Syringe SUB-Q 75 mg Q12H ALEXANDRU Administration Finasteride 5 mg 12/30/24 09:00 01/02/25 08:31 Finasteride 5 Mg Tablet PO 5 mg DAILY ALEXANDRU Administration Fluticasone/Umeclidinium/Vilanterol 1 puff 12/30/24 09:00 01/02/25 07:28 Fluticasone/Umeclidin/Vilanter 100-62.5-25 Mcg Ellipta INHALATION 1 puff DAILY ALEXANDRU Administration Furosemide 20 mg 01/01/25 09:00 01/02/25 08:31 Furosemide Inj 40 Mg/4 Ml Vial IV PUSH 20 mg DAILY ALEXANDRU Administration Hydromorphone HCl 0.5 mg 12/29/24 22:17 01/02/25 12:20 Hydromorphone Hcl Inj (*Crx) 1 Mg/Ml Syr IV PUSH 0.5 mg Q3H PRN Administration Pain Rated 7-10 Hydroxyzine Pamoate 50 mg 12/31/24 16:40 01/01/25 20:17 Hydroxyzine Pamoate 25 Mg Capsule PO 50 mg Q4H PRN Administration Itching Levothyroxine Sodium 100 mcg 01/01/25 06:30 01/02/25 05:52 Levothyroxine Sodium 100 Mcg Tablet PO 100 mcg DAILY@0630 ALEXANDRU Administration Metoprolol Tartrate 37.5 mg 01/01/25 21:00 01/02/25 08:31 Metoprolol Tartrate 12.5 Mg Tablet PO 37.5 mg Q12HR ALEXANDRU Administration Naloxone HCl 0.1 mg 12/31/24 16:40 Naloxone Hcl 0.4 Mg/Ml Vial IV PUSH Q2M PRN Opiate Reversal Ondansetron HCl 4 mg 12/31/24 16:40 Ondansetron Inj 4 Mg/2 Ml Vial IV PUSH Q4H PRN Nausea And Vomiting Polyethylene Glycol 17 gm 12/30/24 12:00 01/02/25 08:00 Polyethylene Glycol 3350 17 Gm Powd.Pack PO 17 gm QAM ALEXANDRU Administration Senna/Docusate Sodium 2 tab 12/31/24 17:00 01/02/25 08:33 Senna/Docusate Sodium Tablet PO 2 tab BID ALEXANDRU Administration Radiology Results: ITS Impressions Head CT 12/29/24 12:03 IMPRESSION: 1. No acute intracranial findings. Foot X-Ray 12/29/24 12:05 IMPRESSION: 1. 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 No acute osseous abnormality. Knee X-Ray 12/29/24 12:08 IMPRESSION: 1. No left knee joint effusion or acute osseous abnormality. Hip/Pelvis X-Ray 12/29/24 12:28 Impression: Left femoral neck fracture Hip X-Ray 12/31/24 16:42 Impression: No acute fracture or malalignment. Chest X-Ray 01/01/25 09:10 Impression: Early bilateral pneumonia Labs Labs: Laboratory Results - last 24 hr 01/01/25 01/01/25 01/02/25 16:52 21:03 05:31 WBC 9.8 RBC 3.59 L Hgb 10.7 L Hct 33.5 L MCV 93.3 MCH 29.8 MCHC 31.9 L RDW 14.1 Plt Count 174 MPV 11.2 H Immature Gran % (Auto) 0.5 Neut % (Auto) 79.0 H Lymph % (Auto) 8.6 L [place] % (Auto) 10.3 H Eos % (Auto) 1.2 Baso % (Auto) 0.4 Lymph # (Auto) 0.85 L [place] # (Auto) 1.0 H Eos # (Auto) 0.1 Baso # (Auto) 0.0 Abs Immat Gran (auto) 0.05 H Absolute Neuts (auto) 7.8 H Absolute Nucleated RBC 0.000 Nucleated RBC % 0.0 Sodium 140 Potassium 3.1 L Chloride 106 Carbon Dioxide 30 Anion Gap 4 BUN 22 H Creatinine 0.72 Estim Creat Clear Calc 67 Estimated GFR > 60 Glucose 119 H POC Capillary Glucose 142 H 149 H Calcium 8.2 L 01/02/25 01/02/25 08:00 11:35 WBC RBC Hgb Hct MCV MCH MCHC RDW Plt Count MPV Immature Gran % (Auto) Neut % (Auto) Lymph % (Auto) [place] % (Auto) Eos % (Auto) Baso % (Auto) Lymph # (Auto) [place] # (Auto) Eos # (Auto) Baso # (Auto) Abs Immat Gran (auto) Absolute Neuts (auto) Absolute Nucleated RBC Nucleated RBC % Sodium Potassium Chloride Carbon Dioxide Anion Gap BUN Creatinine Estim Creat Clear Calc Estimated GFR Glucose POC Capillary Glucose 120 H 114 H Calcium
--- NOTE | 2025-01-02 14:05 | P.PNIM_ITS ---
Progress Note: A&P Assessment and Plan (1) Atrial fibrillation: Code(s): I48.91 - Unspecified atrial fibrillation Status: Acute (2) Adult hypothyroidism: Code(s): E03.9 - Hypothyroidism, unspecified Status: Acute (3) Closed fracture of neck of left femur: Qualifiers: Encounter type: initial encounter Qualified Code(s): S72.002A - Fracture of unspecified part of neck of left femur, initial encounter for closed fracture Code(s): S72.002A - Fracture of unspecified part of neck of left femur, initial encounter for closed fracture Status: Acute (4) Acute hypoxic respiratory failure: Code(s): J96.01 - Acute respiratory failure with hypoxia Status: Acute Plan 79-year-old male with past medical history of AFib on chronic anticoagulation, COPD, presented with ongoing left hip pain, was found to have left hip fracture, along with hypoxia. #. 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 Add antibiotics #. Leukocytosis: Leukocytosis worse today, likely in setting of surgery Blood culture negative till date UA unremarkable on admission # History of atrial fibrillation: Increase metoprolol to 37.5 mg p.o. b.i.d. Continue with Lovenox Will switch to oral agent when okay with Orthopedics(takes 5 mg of Eliquis b.i.d. at home) # History of hypothyroidism: Continue with home dose levothyroxine # Code status: Full # DVT prophylaxis: Lovenox # Disposition: Pending improvement. PT OT evaluation likely needs placement Subjective Date/time seen: 01/02/25 14:05 Interval history: Work with therapy today. Complains of pain in his left hip. Has some cough. No chest pain. Shortness of breath with exertion. Family at bedside and discussed with her. Review of Systems Review of Systems: All systems reviewed & are unremarkable except as noted in HPI and below Exam Narrative: Gen -no acute distress, on O2 support, 2 L Chest -few bibasilar crackles, decreased breath sounds CV -normal sinus rhythm Abd - Soft, NT/ND, Positive BS Ext -dressing present over left hip which is clean dry and intact Neuro -alert and oriented Psych - pleasant and cooperative. Skin - Warm and dry Objective Data Vital Signs Vital Signs: Vital Signs - 24 hr 01/01/25 14:26 01/01/25 16:03 01/01/25 20:11 Temperature 97.6 F Pulse Rate 91 Respiratory Rate 18 Blood Pressure 119/72 Pulse Oximetry 94 94 94 Oxygen Delivery Nasal Cannula Nasal Cannula Oxygen Flow Rate 1 2 01/01/25 20:16 01/01/25 21:52 01/01/25 21:52 Temperature Pulse Rate 95 92 Respiratory Rate 20 Blood Pressure Pulse Oximetry 95 Oxygen Delivery Nasal Cannula Oxygen Flow Rate 2 01/02/25 02:35 01/02/25 02:42 01/02/25 03:00 Temperature Pulse Rate 68 Respiratory Rate 16 Blood Pressure Pulse Oximetry 97 94 Oxygen Delivery Nasal Cannula Nasal Cannula Oxygen Flow Rate 1 1 01/02/25 06:10 01/02/25 07:26 01/02/25 08:31 Temperature 99.3 F Pulse Rate 90 70 84 Respiratory Rate 18 18 Blood Pressure 118/84 Pulse Oximetry 96 Oxygen Delivery Oxygen Flow Rate Intake/Output Intake/Output: Intake & Output 12/30/24 12/31/24 01/01/25 01/02/25 23:59 23:59 23:59 23:59 Intake Total 0771 845 5602 240 Output Total 675 1200 900 700 Balance 593 -550 110 -460 Meds/Results Medications: Active Medications Generic Name Dose Route Start Last Admin Trade Name Freq PRN Reason Stop Dose Admin Acetaminophen 500 mg 12/29/24 15:05 01/02/25 08:33 Acetaminophen 500 Mg Tablet PO 500 mg Q4H PRN Administration Mild Pain (1-3) or Fever Hydrocodone Bitart/Acetaminophen 1 tab 01/02/25 13:57 Hydrocodone/Acetaminophen (*Crx) 10-325 Mg Tablet PO Q4H PRN Pain Rated 7-10 Albuterol 2 puff 12/29/24 18:50 01/01/25 05:54 Albuterol Sulfate (*Sp) Aerosol 1 Puff INHALATION 2 puff Q4H PRN Administration Shortness Of Breath Albuterol/Ipratropium 3 ml 12/29/24 20:00 01/02/25 07:25 Ipratropium 0.5 Mg/Albuterol Sulfate 2.5 Mg Ampul.Neb 3 Ml INHALATION 3 ml Q6HRT ALEXANDRU Administration Ascorbic Acid 1,000 mg 01/01/25 09:00 01/02/25 08:33 Ascorbic Acid 500 Mg Tablet PO 1,000 mg DAILY ALEXANDRU Administration Aspirin 81 mg 01/01/25 09:00 01/02/25 08:33 Aspirin 81 Mg Enteric Tablet PO 81 mg DAILY ALEXANDRU Administration Atorvastatin Calcium 20 mg 12/30/24 09:00 01/02/25 08:33 Atorvastatin 20 Mg Tablet BY MOUTH 20 mg DAILY ALEXANDRU Administration Enoxaparin Sodium 75 mg 12/29/24 15:35 01/02/25 04:19 Enoxaparin 80 Mg/0.8 Ml Syringe SUB-Q 75 mg Q12H ALEXANDRU Administration Finasteride 5 mg 12/30/24 09:00 01/02/25 08:31 Finasteride 5 Mg Tablet PO 5 mg DAILY ALEXANDRU Administration Fluticasone/Umeclidinium/Vilanterol 1 puff 12/30/24 09:00 01/02/25 07:28 Fluticasone/Umeclidin/Vilanter 100-62.5-25 Mcg Ellipta INHALATION 1 puff DAILY ALEXANDRU Administration Furosemide 20 mg 01/01/25 09:00 01/02/25 08:31 Furosemide Inj 40 Mg/4 Ml Vial IV PUSH 20 mg DAILY ALEXANDRU Administration Hydromorphone HCl 0.5 mg 12/29/24 22:17 01/02/25 12:20 Hydromorphone Hcl Inj (*Crx) 1 Mg/Ml Syr IV PUSH 0.5 mg Q3H PRN Administration Pain Rated 7-10 Hydroxyzine Pamoate 50 mg 12/31/24 16:40 01/01/25 20:17 Hydroxyzine Pamoate 25 Mg Capsule PO 50 mg Q4H PRN Administration Itching Levothyroxine Sodium 100 mcg 01/01/25 06:30 01/02/25 05:52 Levothyroxine Sodium 100 Mcg Tablet PO 100 mcg DAILY@0630 ALEXANDRU Administration Metoprolol Tartrate 37.5 mg 01/01/25 21:00 01/02/25 08:31 Metoprolol Tartrate 12.5 Mg Tablet PO 37.5 mg Q12HR ALEXANDRU Administration Naloxone HCl 0.1 mg 12/31/24 16:40 Naloxone Hcl 0.4 Mg/Ml Vial IV PUSH Q2M PRN Opiate Reversal Ondansetron HCl 4 mg 12/31/24 16:40 Ondansetron Inj 4 Mg/2 Ml Vial IV PUSH Q4H PRN Nausea And Vomiting Polyethylene Glycol 17 gm 12/30/24 12:00 01/02/25 08:00 Polyethylene Glycol 3350 17 Gm Powd.Pack PO 17 gm QAM ALEXANDRU Administration Senna/Docusate Sodium 2 tab 12/31/24 17:00 01/02/25 08:33 Senna/Docusate Sodium Tablet PO 2 tab BID ALEXANDRU Administration Radiology Results: ITS Impressions Head CT 12/29/24 12:03 IMPRESSION: 1. No acute intracranial findings. Foot X-Ray 12/29/24 12:05 IMPRESSION: 1. 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 No acute osseous abnormality. Knee X-Ray 12/29/24 12:08 IMPRESSION: 1. No left knee joint effusion or acute osseous abnormality. Hip/Pelvis X-Ray 12/29/24 12:28 Impression: Left femoral neck fracture Hip X-Ray 12/31/24 16:42 Impression: No acute fracture or malalignment. Chest X-Ray 01/01/25 09:10 Impression: Early bilateral pneumonia Labs Labs: Laboratory Results - last 24 hr 01/01/25 01/01/25 01/02/25 16:52 21:03 05:31 WBC 9.8 RBC 3.59 L Hgb 10.7 L Hct 33.5 L MCV 93.3 MCH 29.8 MCHC 31.9 L RDW 14.1 Plt Count 174 MPV 11.2 H Immature Gran % (Auto) 0.5 Neut % (Auto) 79.0 H Lymph % (Auto) 8.6 L [place] % (Auto) 10.3 H Eos % (Auto) 1.2 Baso % (Auto) 0.4 Lymph # (Auto) 0.85 L [place] # (Auto) 1.0 H Eos # (Auto) 0.1 Baso # (Auto) 0.0 Abs Immat Gran (auto) 0.05 H Absolute Neuts (auto) 7.8 H Absolute Nucleated RBC 0.000 Nucleated RBC % 0.0 Sodium 140 Potassium 3.1 L Chloride 106 Carbon Dioxide 30 Anion Gap 4 BUN 22 H Creatinine 0.72 Estim Creat Clear Calc 67 Estimated GFR > 60 Glucose 119 H POC Capillary Glucose 142 H 149 H Calcium 8.2 L 01/02/25 01/02/25 08:00 11:35 WBC RBC Hgb Hct MCV MCH MCHC RDW Plt Count MPV Immature Gran % (Auto) Neut % (Auto) Lymph % (Auto) [place] % (Auto) Eos % (Auto) Baso % (Auto) Lymph # (Auto) [place] # (Auto) Eos # (Auto) Baso # (Auto) Abs Immat Gran (auto) Absolute Neuts (auto) Absolute Nucleated RBC Nucleated RBC % Sodium Potassium Chloride Carbon Dioxide Anion Gap BUN Creatinine Estim Creat Clear Calc Estimated GFR Glucose POC Capillary Glucose 120 H 114 H Calcium
[2025-01-02] MEDS: HYDROcodone/acetaminophen (*CRX) 10-325 MG TABLET 1 TAB PO (14:33)
[2025-01-02] MEDS: AZITHROMYCIN 500 MG TABLET PO (14:33)
[2025-01-02] MEDS: POTASSIUM CHLORIDE 20 MEQ ER TABLET 40 MEQ PO (14:33)
[2025-01-02] MEDS: oxyCODONE/ACETAMINOPHEN (*CRX) 10-325 MG TABLET 1 TAB PO ×2 (18:44→23:30)
[2025-01-03] VITALS (13 sets, daily range): BP systolic 100–119; BP diastolic 77–78; PULSE 68–105; RESP 17–18; TEMP 36.4–36.7; O2SAT 92–97
[2025-01-03] MEDS: IPRATROPIUM 0.5 MG/ALBUTEROL SULFATE 2.5 MG AMPUL.NEB 3 ML INHALATION ×4 (01:39→20:20)
[2025-01-03] MEDS: ENOXAPARIN 80 MG/0.8 ML SYRINGE 75 MG SUB-Q ×2 (03:50→17:12)
[2025-01-03] MEDS: LEVOTHYROXINE SODIUM 100 MCG TABLET PO (05:44)
[2025-01-03 06:21] LABS: Hematocrit 36.3 % (42.0-52.0); Hemoglobin 11.3 g/dL (14.0-18.0); Immature Granulocyte Percent A 0.3 % (0-0.5); Lymphocytes Absolute Auto 0.95 K/mm3 (0.9-3.2); Mean Corpuscular HGB Conc 31.1 g/dl (32-36); Mean Corpuscular Hemoglobin 29.4 pg (26-34); Mean Corpuscular Volume 94.3 fl (80-100); Nucleated Red Blood Cells Absolute Auto 0.000 K/mm3 (0.0-0.012); Nucleated Red Blood Cells Perc 0.0 % (0.0-0.2); Platelet Count Result 188 k/mm3 (150-375); Red Blood Count 3.85 M/mm3 (4.6-6.20); White Blood Count 9.5 K/mm3 (4.5-10.0)
[2025-01-03 06:45] LABS: Alanine Aminotransferase 18 U/L (6-50); Albumin Level 3.0 g/dL (3.5-5.1); Alkaline Phosphatase 72 U/L (38-126); Anion Gap 1 mmol/L (4-12); Aspartate Amino Transferase 34 U/L (17-59); Bilirubin,Total 0.8 mg/dL (0.2-1.3); Blood Urea Nitrogen 23 mg/dL (9-20); Calcium 8.3 mg/dL (8.4-10.2); Carbon Dioxide 33 mmol/L (22-30); Chloride 104 mmol/L (98-107); Estimated CRCL calculation 61 ml/min; Estimated Glomerular Filt Rate > 60; Glucose 108 mg/dL (65-110); Magnesium 2.3 mg/dL (1.6-2.3); Potassium 3.6 mmol/L (3.4-5.0); Sodium 138 mmol/L (137-145); Total Protein 5.8 g/dL (6.3-8.2)
[2025-01-03] MEDS: FLUTICASONE/UMECLIDIN/VILANTER 100-62.5-25 MCG ELLIPTA 1 PUFF INHALATION (07:21)
[2025-01-03] MEDS: oxyCODONE/ACETAMINOPHEN (*CRX) 10-325 MG TABLET 1 TAB PO ×2 (09:31→20:49)
[2025-01-03] MEDS: SENNA/DOCUSATE SODIUM TABLET 2 TAB PO ×2 (09:33→17:12)
[2025-01-03] MEDS: AZITHROMYCIN 250 MG TABLET PO (09:33)
[2025-01-03] MEDS: ASCORBIC ACID 500 MG TABLET 1000 MG PO (09:33)
[2025-01-03] MEDS: METOPROLOL TARTRATE 12.5 MG TABLET 37.5 MG PO ×2 (09:33→20:48)
[2025-01-03] MEDS: ATORVASTATIN 20 MG TABLET BY MOUTH (09:34)
[2025-01-03] MEDS: FINASTERIDE 5 MG TABLET PO (09:34)
[2025-01-03] MEDS: ASPIRIN 81 MG ENTERIC TABLET PO (09:34)
--- NOTE | 2025-01-03 12:53 | P.PNIM_ITS ---
Progress Note: A&P Assessment and Plan (1) Atrial fibrillation: Code(s): I48.91 - Unspecified atrial fibrillation Status: Acute (2) Adult hypothyroidism: Code(s): E03.9 - Hypothyroidism, unspecified Status: Acute (3) Closed fracture of neck of left femur: Qualifiers: Encounter type: initial encounter Qualified Code(s): S72.002A - Fracture of unspecified part of neck of left femur, initial encounter for closed fracture Code(s): S72.002A - Fracture of unspecified part of neck of left femur, initial encounter for closed fracture Status: Acute (4) Acute hypoxic respiratory failure: Code(s): J96.01 - Acute respiratory failure with hypoxia Status: Acute Plan 79-year-old male with past medical history of AFib on chronic anticoagulation, COPD, presented with ongoing left hip pain, was found to have left hip fracture, along with hypoxia. #. Left femoral neck fracture: Appreciate orthopedics consult Pain control Status post left hip hemiarthroplasty PT/OT as tolerated as per protocol Oxycodone p.r.n. 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 Add azithromycin Off oxygen today #. Leukocytosis: Leukocytosis worse today, likely in setting of surgery Blood culture negative till date UA unremarkable on admission # History of atrial fibrillation: Increase metoprolol to 37.5 mg p.o. b.i.d. Continue with Lovenox Will switch to oral agent when okay with Orthopedics(takes 5 mg of Eliquis b. i.d. at home) # History of hypothyroidism: Continue with home dose levothyroxine # Code status: Full # DVT prophylaxis: Lovenox # Disposition: Pending improvement. PT OT evaluation likely needs placement Subjective Date/time seen: 01/03/25 12:53 Interval history: Complains of left hip pain. Working with therapy. Still has some cough off oxygen now. Review of Systems Review of Systems: All systems reviewed & are unremarkable except as noted in HPI and below Exam Narrative: Gen -no acute distress, on O2 support, 2 L Chest -few bibasilar crackles, decreased breath sounds CV -normal sinus rhythm Abd - Soft, NT/ND, Positive BS Ext -dressing present over left hip which is clean dry and intact Neuro -alert and oriented Psych - pleasant and cooperative. Skin - Warm and dry Objective Data Vital Signs Vital Signs: Vital Signs - 24 hr 01/02/25 14:30 01/02/25 14:34 01/02/25 20:16 Temperature 98.0 F Pulse Rate 85 72 95 Respiratory Rate 20 16 Blood Pressure 121/83 Pulse Oximetry 99 Oxygen Delivery Oxygen Flow Rate 01/02/25 20:16 01/02/25 20:17 01/02/25 20:18 Temperature Pulse Rate 70 Respiratory Rate 16 Blood Pressure Pulse Oximetry 97 97 Oxygen Delivery CPAP Nasal Cannula Oxygen Flow Rate 1 01/02/25 20:27 01/02/25 22:17 01/02/25 23:05 Temperature 97.7 F Pulse Rate 74 93 79 Respiratory Rate 18 16 Blood Pressure 110/83 Pulse Oximetry 93 97 Oxygen Delivery Autopap Oxygen Flow Rate 01/03/25 01:40 01/03/25 01:54 01/03/25 01:55 Temperature Pulse Rate 68 70 70 Respiratory Rate 18 18 Blood Pressure Pulse Oximetry 97 Oxygen Delivery Autopap Oxygen Flow Rate 01/03/25 06:00 01/03/25 07:22 01/03/25 09:33 Temperature 97.9 F Pulse Rate 96 84 105 H Respiratory Rate 18 18 Blood Pressure 119/77 Pulse Oximetry 92 Oxygen Delivery Oxygen Flow Rate Intake/Output Intake/Output: Intake & Output 12/31/24 01/01/25 01/02/25 01/03/25 23:59 23:59 23:59 23:59 Intake Total 650 1010 480 990 Output Total 2672 451 2371 100 Balance -550 110 -670 890 Meds/Results Medications: Active Medications Generic Name Dose Route Start Last Admin Trade Name Freq PRN Reason Stop Dose Admin Acetaminophen 500 mg 12/29/24 15:05 01/02/25 08:33 Acetaminophen 500 Mg Tablet PO 500 mg Q4H PRN Administration Mild Pain (1-3) or Fever Albuterol 2 puff 12/29/24 18:50 01/01/25 05:54 Albuterol Sulfate (*Sp) Aerosol 1 Puff INHALATION 2 puff Q4H PRN Administration Shortness Of Breath Albuterol/Ipratropium 3 ml 12/29/24 20:00 01/03/25 07:20 Ipratropium 0.5 Mg/Albuterol Sulfate 2.5 Mg Ampul.Neb 3 Ml INHALATION 3 ml Q6HRT ALEXANDRU Administration Ascorbic Acid 1,000 mg 01/01/25 09:00 01/03/25 09:33 Ascorbic Acid 500 Mg Tablet PO 1,000 mg DAILY ALEXANDRU Administration Aspirin 81 mg 01/01/25 09:00 01/03/25 09:34 Aspirin 81 Mg Enteric Tablet PO 81 mg DAILY ALEXANDRU Administration Atorvastatin Calcium 20 mg 12/30/24 09:00 01/03/25 09:34 Atorvastatin 20 Mg Tablet BY MOUTH 20 mg DAILY ALEXANDRU Administration Azithromycin 250 mg 01/03/25 09:00 01/03/25 09:33 Azithromycin 250 Mg Tablet PO 01/06/25 09:01 250 mg DAILY ALEXANDRU Administration Enoxaparin Sodium 75 mg 12/29/24 15:35 01/03/25 03:50 Enoxaparin 80 Mg/0.8 Ml Syringe SUB-Q 75 mg Q12H ALEXANDRU Administration Finasteride 5 mg 12/30/24 09:00 01/03/25 09:34 Finasteride 5 Mg Tablet PO 5 mg DAILY ALEXANDRU Administration Fluticasone/Umeclidinium/Vilanterol 1 puff 12/30/24 09:00 01/03/25 07:21 Fluticasone/Umeclidin/Vilanter 100-62.5-25 Mcg Ellipta INHALATION 1 puff DAILY ALEXANDRU Administration Hydromorphone HCl 0.5 mg 12/29/24 22:17 01/02/25 12:20 Hydromorphone Hcl Inj (*Crx) 1 Mg/Ml Syr IV PUSH 0.5 mg Q3H PRN Administration Pain Rated 7-10 Hydroxyzine Pamoate 50 mg 12/31/24 16:40 01/01/25 20:17 Hydroxyzine Pamoate 25 Mg Capsule PO 50 mg Q4H PRN Administration Itching Levothyroxine Sodium 100 mcg 01/01/25 06:30 01/03/25 05:44 Levothyroxine Sodium 100 Mcg Tablet PO 100 mcg DAILY@0630 ALEXANDRU Administration Metoprolol Tartrate 37.5 mg 01/01/25 21:00 01/03/25 09:33 Metoprolol Tartrate 12.5 Mg Tablet PO 37.5 mg Q12HR ALEXANDRU Administration Naloxone HCl 0.1 mg 12/31/24 16:40 Naloxone Hcl 0.4 Mg/Ml Vial IV PUSH Q2M PRN Opiate Reversal Ondansetron HCl 4 mg 12/31/24 16:40 Ondansetron Inj 4 Mg/2 Ml Vial IV PUSH Q4H PRN Nausea And Vomiting Oxycodone/Acetaminophen 1 tablet 01/02/25 18:16 Oxycodone/Acetaminophen (*Crx) 5-325 Mg Tablet PO Q4H PRN Pain Rated 4-6 Oxycodone/Acetaminophen 1 tab 01/02/25 18:16 01/03/25 09:31 Oxycodone/Acetaminophen (*Crx) 10-325 Mg Tablet PO 1 tab Q4H PRN Administration Pain Rated 7-10 Polyethylene Glycol 17 gm 12/30/24 12:00 01/03/25 09:34 Polyethylene Glycol 3350 17 Gm Powd.Pack PO 17 gm QAM ALEXANDRU Administration Senna/Docusate Sodium 2 tab 12/31/24 17:00 01/03/25 09:33 Senna/Docusate Sodium Tablet PO 2 tab BID ALEXANDRU Administration Radiology Results: ITS Impressions Head CT 12/29/24 12:03 IMPRESSION: 1. No acute intracranial findings. Foot X-Ray 12/29/24 12:05 IMPRESSION: 1. 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 No acute osseous abnormality. Knee X-Ray 12/29/24 12:08 IMPRESSION: 1. No left knee joint effusion or acute osseous abnormality. Hip/Pelvis X-Ray 12/29/24 12:28 Impression: Left femoral neck fracture Hip X-Ray 12/31/24 16:42 Impression: No acute fracture or malalignment. Chest X-Ray 01/01/25 09:10 Impression: Early bilateral pneumonia Labs Labs: Laboratory Results - last 24 hr 01/02/25 01/02/25 01/03/25 16:37 20:02 05:56 WBC 9.5 RBC 3.85 L Hgb 11.3 L Hct 36.3 L MCV 94.3 MCH 29.4 MCHC 31.1 L RDW 14.3 Plt Count 188 MPV 10.7 H Immature Gran % (Auto) 0.3 Neut % (Auto) 76.9 H Lymph % (Auto) 10.0 L [place] % (Auto) 9.4 H Eos % (Auto) 2.7 Baso % (Auto) 0.7 Lymph # (Auto) 0.95 [place] # (Auto) 0.9 H Eos # (Auto) 0.3 Baso # (Auto) 0.1 Abs Immat Gran (auto) 0.03 Absolute Neuts (auto) 7.3 H Absolute Nucleated RBC 0.000 Nucleated RBC % 0.0 Sodium 138 Potassium 3.6 Chloride 104 Carbon Dioxide 33 H Anion Gap 1 L BUN 23 H Creatinine 0.79 Estim Creat Clear Calc 61 Estimated GFR > 60 Glucose 108 POC Capillary Glucose 108 H 149 H Calcium 8.3 L Magnesium 2.3 Total Bilirubin 0.8 AST 34 ALT 18 Alkaline Phosphatase 72 Total Protein 5.8 L Albumin 3.0 L 01/03/25 01/03/25 07:46 11:13 WBC RBC Hgb Hct MCV MCH MCHC RDW Plt Count MPV Immature Gran % (Auto) Neut % (Auto) Lymph % (Auto) [place] % (Auto) Eos % (Auto) Baso % (Auto) Lymph # (Auto) [place] # (Auto) Eos # (Auto) Baso # (Auto) Abs Immat Gran (auto) Absolute Neuts (auto) Absolute Nucleated RBC Nucleated RBC % Sodium Potassium Chloride Carbon Dioxide Anion Gap BUN Creatinine Estim Creat Clear Calc Estimated GFR Glucose POC Capillary Glucose 100 114 H Calcium Magnesium Total Bilirubin AST ALT Alkaline Phosphatase Total Protein Albumin
[2025-01-04] VITALS (13 sets, daily range): BP systolic 100–125; BP diastolic 58–76; PULSE 73–95; RESP 14–20; TEMP 36.2–36.4; O2SAT 93–97
[2025-01-04] MEDS: oxyCODONE/ACETAMINOPHEN (*CRX) 10-325 MG TABLET 1 TAB PO ×4 (01:57→22:56)
[2025-01-04] MEDS: IPRATROPIUM 0.5 MG/ALBUTEROL SULFATE 2.5 MG AMPUL.NEB 3 ML INHALATION ×4 (02:12→19:58)
--- NOTE | 2025-01-04 02:54 | PC.NURSE ---
Patient disoriented, anxious, tossed, fidgety tossed and turned in bed early this morning could not sleep. He is up in chair, while on his cellular phone. He stated he smokes half a pack of cigarettes per day. Andreea Yadav [employer]INE [employer] SUPER[employer] gave orders for Nicotine patch with nicotine withdrawals. Patient reoriented, chair alarm set, call light within reach with personal belongs close by, next to nurses station.
[2025-01-04] MEDS: NICOTINE (*PBKC) 14 MG PATCH 1 PATCH TRANSDERM ×2 (03:29→08:22)
[2025-01-04] MEDS: ENOXAPARIN 80 MG/0.8 ML SYRINGE 75 MG SUB-Q (03:29)
[2025-01-04] MEDS: LEVOTHYROXINE SODIUM 100 MCG TABLET PO (05:39)
[2025-01-04 06:50] LABS: Hematocrit 36.4 % (42.0-52.0); Hemoglobin 11.5 g/dL (14.0-18.0); Immature Granulocyte Percent A 0.6 % (0-0.5); Lymphocytes Absolute Auto 1.09 K/mm3 (0.9-3.2); Mean Corpuscular HGB Conc 31.6 g/dl (32-36); Mean Corpuscular Hemoglobin 29.5 pg (26-34); Mean Corpuscular Volume 93.3 fl (80-100); Nucleated Red Blood Cells Absolute Auto 0.000 K/mm3 (0.0-0.012); Nucleated Red Blood Cells Perc 0.0 % (0.0-0.2); Platelet Count Result 214 k/mm3 (150-375); Red Blood Count 3.90 M/mm3 (4.6-6.20); White Blood Count 7.9 K/mm3 (4.5-10.0)
[2025-01-04 07:07] LABS: Alanine Aminotransferase 19 U/L (6-50); Albumin Level 3.2 g/dL (3.5-5.1); Alkaline Phosphatase 71 U/L (38-126); Anion Gap 4 mmol/L (4-12); Aspartate Amino Transferase 32 U/L (17-59); Bilirubin,Total 0.8 mg/dL (0.2-1.3); Blood Urea Nitrogen 21 mg/dL (9-20); Calcium 8.7 mg/dL (8.4-10.2); Carbon Dioxide 33 mmol/L (22-30); Chloride 102 mmol/L (98-107); Estimated CRCL calculation 60 ml/min; Estimated Glomerular Filt Rate > 60; Glucose 104 mg/dL (65-110); Magnesium 2.4 mg/dL (1.6-2.3); Potassium 3.7 mmol/L (3.4-5.0); Sodium 139 mmol/L (137-145); Total Protein 6.0 g/dL (6.3-8.2)
[2025-01-04] MEDS: HYDROmorphone HCL INJ (*CRX) 1 MG/ML SYR 0.5 MG IV PUSH (08:20)
[2025-01-04] MEDS: SENNA/DOCUSATE SODIUM TABLET 2 TAB PO ×2 (08:24→16:46)
[2025-01-04] MEDS: ATORVASTATIN 20 MG TABLET BY MOUTH (08:24)
[2025-01-04] MEDS: FINASTERIDE 5 MG TABLET PO (08:25)
[2025-01-04] MEDS: ASPIRIN 81 MG ENTERIC TABLET PO (08:25)
[2025-01-04] MEDS: METOPROLOL TARTRATE 12.5 MG TABLET 37.5 MG PO ×2 (08:25→20:40)
[2025-01-04] MEDS: ASCORBIC ACID 500 MG TABLET 1000 MG PO (08:25)
[2025-01-04] MEDS: AZITHROMYCIN 250 MG TABLET PO (08:25)
[2025-01-04] MEDS: FLUTICASONE/UMECLIDIN/VILANTER 100-62.5-25 MCG ELLIPTA 1 PUFF INHALATION (08:40)
--- NOTE | 2025-01-04 12:48 | PM.IMPN ---
Progress Note: A&P Assessment and Plan (1) Atrial fibrillation: Code(s): I48.91 - Unspecified atrial fibrillation Status: Acute (2) Adult hypothyroidism: Code(s): E03.9 - Hypothyroidism, unspecified Status: Acute (3) Closed fracture of neck of left femur: Qualifiers: Encounter type: initial encounter Qualified Code(s): S72.002A - Fracture of unspecified part of neck of left femur, initial encounter for closed fracture Code(s): S72.002A - Fracture of unspecified part of neck of left femur, initial encounter for closed fracture Status: Acute (4) Acute hypoxic respiratory failure: Code(s): J96.01 - Acute respiratory failure with hypoxia Status: Acute Plan 79-year-old male with past medical history of AFib on chronic anticoagulation, COPD, presented with ongoing left hip pain, was found to have left hip fracture, along with hypoxia. #. Left femoral neck fracture: Appreciate orthopedics consult Pain control Status post left hip hemiarthroplasty PT/OT as tolerated as per protocol Oxycodone p.r.n. 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 Add azithromycin Off oxygen Now #. Leukocytosis: Leukocytosis worse today, likely in setting of surgery Blood culture negative till date UA unremarkable on admission # History of atrial fibrillation: Increase metoprolol to 37.5 mg p.o. b.i.d. Continue with Lovenox Will switch to oral agent when okay with Orthopedics(takes 5 mg of Eliquis b.i.d. at home) # History of hypothyroidism: Continue with home dose levothyroxine # Code status: Full # DVT prophylaxis: Lovenox # Disposition: Pending improvement. PT OT evaluation likely needs placement. awaiting authorization Subjective Date/time seen: 01/04/25 12:48 Interval history: no overnight events. States pain is better. Breathing is better not much cough. Review of Systems Review of Systems: All systems reviewed & are unremarkable except as noted in HPI and below Exam Narrative: Gen -no acute distress, on O2 support, 2 L Chest -few bibasilar crackles, decreased breath sounds CV -normal sinus rhythm Abd - Soft, NT/ND, Positive BS Ext -dressing present over left hip which is clean dry and intact Neuro -alert and oriented Psych - pleasant and cooperative. Skin - Warm and dry Objective Data Vital Signs Vital Signs: Vital Signs - 24 hr 01/03/25 14:00 01/03/25 17:19 01/03/25 20:21 Temperature 97.6 F Pulse Rate 91 79 85 Respiratory Rate 18 18 18 Blood Pressure 110/78 Pulse Oximetry 95 Oxygen Delivery Oxygen Flow Rate Fraction of Inspired Oxygen 01/03/25 20:21 01/03/25 20:34 01/03/25 20:48 Temperature Pulse Rate 79 97 Respiratory Rate 18 Blood Pressure Pulse Oximetry 93 Oxygen Delivery Nasal Cannula Oxygen Flow Rate 1 Fraction of Inspired Oxygen 01/03/25 20:49 01/03/25 21:56 01/04/25 02:12 Temperature 98.0 F Pulse Rate 96 78 Respiratory Rate 17 19 Blood Pressure 100/77 Pulse Oximetry 94 94 Oxygen Delivery CPAP Oxygen Flow Rate Fraction of Inspired Oxygen 01/04/25 02:12 01/04/25 05:52 01/04/25 08:00 Temperature 97.4 F L Pulse Rate 78 82 Respiratory Rate 14 Blood Pressure 107/76 Pulse Oximetry 96 94 Oxygen Delivery Autopap Room Air Oxygen Flow Rate Fraction of Inspired Oxygen 01/04/25 08:25 01/04/25 08:40 01/04/25 08:40 Temperature Pulse Rate 82 82 Respiratory Rate 20 Blood Pressure Pulse Oximetry 93 Oxygen Delivery Room Air Oxygen Flow Rate Fraction of Inspired Oxygen 21 01/04/25 08:52 Temperature Pulse Rate 78 Respiratory Rate 20 Blood Pressure Pulse Oximetry Oxygen Delivery Oxygen Flow Rate Fraction of Inspired Oxygen Intake/Output Intake/Output: Intake & Output 01/01/25 01/02/25 01/03/25 01/04/25 23:59 23:59 23:59 23:59 Intake Total 7945 392 4844 300 Output Total 900 1150 100 600 Balance 110 -670 1370 -300 Meds/Results Medications: Active Medications Generic Name Dose Route Start Last Admin Trade Name Freq PRN Reason Stop Dose Admin Acetaminophen 500 mg 12/29/24 15:05 01/02/25 08:33 Acetaminophen 500 Mg Tablet PO 500 mg Q4H PRN Administration Mild Pain (1-3) or Fever Albuterol 2 puff 12/29/24 18:50 01/01/25 05:54 Albuterol Sulfate (*Sp) Aerosol 1 Puff INHALATION 2 puff Q4H PRN Administration Shortness Of Breath Albuterol/Ipratropium 3 ml 12/29/24 20:00 01/04/25 08:40 Ipratropium 0.5 Mg/Albuterol Sulfate 2.5 Mg Ampul.Neb 3 Ml INHALATION 3 ml Q6HRT ALEXANDRU Administration Ascorbic Acid 1,000 mg 01/01/25 09:00 01/04/25 08:25 Ascorbic Acid 500 Mg Tablet PO 1,000 mg DAILY ALEXANDRU Administration Aspirin 81 mg 01/01/25 09:00 01/04/25 08:25 Aspirin 81 Mg Enteric Tablet PO 81 mg DAILY ALEXANDRU Administration Atorvastatin Calcium 20 mg 12/30/24 09:00 01/04/25 08:24 Atorvastatin 20 Mg Tablet BY MOUTH 20 mg DAILY ALEXANDRU Administration Azithromycin 250 mg 01/03/25 09:00 01/04/25 08:25 Azithromycin 250 Mg Tablet PO 01/06/25 09:01 250 mg DAILY ALEXANDRU Administration Enoxaparin Sodium 75 mg 12/29/24 15:35 01/04/25 03:29 Enoxaparin 80 Mg/0.8 Ml Syringe SUB-Q 75 mg Q12H ALEXANDRU Administration Finasteride 5 mg 12/30/24 09:00 01/04/25 08:25 Finasteride 5 Mg Tablet PO 5 mg DAILY ALEXANDRU Administration Fluticasone/Umeclidinium/Vilanterol 1 puff 12/30/24 09:00 01/04/25 08:40 Fluticasone/Umeclidin/Vilanter 100-62.5-25 Mcg Ellipta INHALATION 1 puff DAILY ALEXANDRU Administration Hydromorphone HCl 0.5 mg 12/29/24 22:17 01/04/25 08:20 Hydromorphone Hcl Inj (*Crx) 1 Mg/Ml Syr IV PUSH 0.5 mg Q3H PRN Administration Pain Rated 7-10 Hydroxyzine Pamoate 50 mg 12/31/24 16:40 01/03/25 20:48 Hydroxyzine Pamoate 25 Mg Capsule PO 50 mg Q4H PRN Administration Itching Levothyroxine Sodium 100 mcg 01/01/25 06:30 01/04/25 05:39 Levothyroxine Sodium 100 Mcg Tablet PO 100 mcg DAILY@0630 ALEXANDRU Administration Metoprolol Tartrate 37.5 mg 01/01/25 21:00 01/04/25 08:25 Metoprolol Tartrate 12.5 Mg Tablet PO 37.5 mg Q12HR ALEXANDRU Administration Naloxone HCl 0.1 mg 12/31/24 16:40 Naloxone Hcl 0.4 Mg/Ml Vial IV PUSH Q2M PRN Opiate Reversal Nicotine 1 patch 01/04/25 09:00 01/04/25 08:22 Nicotine (*Pbkc) 14 Mg Patch TRANSDERM 1 patch DAILY ALEXANDRU Administration Ondansetron HCl 4 mg 12/31/24 16:40 Ondansetron Inj 4 Mg/2 Ml Vial IV PUSH Q4H PRN Nausea And Vomiting Oxycodone/Acetaminophen 1 tablet 01/02/25 18:16 Oxycodone/Acetaminophen (*Crx) 5-325 Mg Tablet PO Q4H PRN Pain Rated 4-6 Oxycodone/Acetaminophen 1 tab 01/02/25 18:16 01/04/25 06:31 Oxycodone/Acetaminophen (*Crx) 10-325 Mg Tablet PO 1 tab Q4H PRN Administration Pain Rated 7-10 Polyethylene Glycol 17 gm 12/30/24 12:00 01/04/25 08:23 Polyethylene Glycol 3350 17 Gm Powd.Pack PO 17 gm QAM ALEXANDRU Administration Senna/Docusate Sodium 2 tab 12/31/24 17:00 01/04/25 08:24 Senna/Docusate Sodium Tablet PO 2 tab BID ALEXANDRU Administration Radiology Results: ITS Impressions Head CT 12/29/24 12:03 IMPRESSION: 1. No acute intracranial findings. Foot X-Ray 12/29/24 12:05 IMPRESSION: 1. 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 No acute osseous abnormality. Knee X-Ray 12/29/24 12:08 IMPRESSION: 1. No left knee joint effusion or acute osseous abnormality. Hip/Pelvis X-Ray 12/29/24 12:28 Impression: Left femoral neck fracture Hip X-Ray 12/31/24 16:42 Impression: No acute fracture or malalignment. Chest X-Ray 01/01/25 09:10 Impression: Early bilateral pneumonia Labs Labs: Laboratory Results - last 24 hr 01/03/25 01/03/25 01/04/25 16:20 20:25 06:29 WBC 7.9 RBC 3.90 L Hgb 11.5 L Hct 36.4 L MCV 93.3 MCH 29.5 MCHC 31.6 L RDW 14.2 Plt Count 214 MPV 10.4 Immature Gran % (Auto) 0.6 H Neut % (Auto) 70.8 Lymph % (Auto) 13.7 L [place] % (Auto) 10.1 H Eos % (Auto) 4.0 Baso % (Auto) 0.8 Lymph # (Auto) 1.09 [place] # (Auto) 0.8 H Eos # (Auto) 0.3 Baso # (Auto) 0.1 Abs Immat Gran (auto) 0.05 H Absolute Neuts (auto) 5.6 Absolute Nucleated RBC 0.000 Nucleated RBC % 0.0 Sodium 139 Potassium 3.7 Chloride 102 Carbon Dioxide 33 H Anion Gap 4 BUN 21 H Creatinine 0.81 Estim Creat Clear Calc 60 Estimated GFR > 60 Glucose 104 POC Capillary Glucose 160 H 142 H Calcium 8.7 Magnesium 2.4 H Total Bilirubin 0.8 AST 32 ALT 19 Alkaline Phosphatase 71 Total Protein 6.0 L Albumin 3.2 L 01/04/25 01/04/25 07:32 11:38 WBC RBC Hgb Hct MCV MCH MCHC RDW Plt Count MPV Immature Gran % (Auto) Neut % (Auto) Lymph % (Auto) [place] % (Auto) Eos % (Auto) Baso % (Auto) Lymph # (Auto) [place] # (Auto) Eos # (Auto) Baso # (Auto) Abs Immat Gran (auto) Absolute Neuts (auto) Absolute Nucleated RBC Nucleated RBC % Sodium Potassium Chloride Carbon Dioxide Anion Gap BUN Creatinine Estim Creat Clear Calc Estimated GFR Glucose POC Capillary Glucose 102 94 Calcium Magnesium Total Bilirubin AST ALT Alkaline Phosphatase Total Protein Albumin
[2025-01-04] MEDS: APIXABAN 5 MG TABLET PO (16:46)
[2025-01-05] VITALS (8 sets, daily range): BP systolic 113–124; BP diastolic 78–85; PULSE 73–95; RESP 17–18; TEMP 36–36.6; O2SAT 92–95
[2025-01-05] MEDS: IPRATROPIUM 0.5 MG/ALBUTEROL SULFATE 2.5 MG AMPUL.NEB 3 ML INHALATION ×2 (01:32→08:06)
[2025-01-05] MEDS: oxyCODONE/ACETAMINOPHEN (*CRX) 10-325 MG TABLET 1 TAB PO ×2 (03:02→08:24)
[2025-01-05] MEDS: LEVOTHYROXINE SODIUM 100 MCG TABLET PO (05:38)
[2025-01-05 07:03] LABS: Hematocrit 38.7 % (42.0-52.0); Hemoglobin 12.6 g/dL (14.0-18.0); Immature Granulocyte Percent A 0.3 % (0-0.5); Lymphocytes Absolute Auto 1.09 K/mm3 (0.9-3.2); Mean Corpuscular HGB Conc 32.6 g/dl (32-36); Mean Corpuscular Hemoglobin 30.4 pg (26-34); Mean Corpuscular Volume 93.5 fl (80-100); Nucleated Red Blood Cells Absolute Auto 0.000 K/mm3 (0.0-0.012); Nucleated Red Blood Cells Perc 0.0 % (0.0-0.2); Platelet Count Result 295 k/mm3 (150-375); Red Blood Count 4.14 M/mm3 (4.6-6.20); White Blood Count 8.9 K/mm3 (4.5-10.0)
[2025-01-05 07:25] LABS: Alanine Aminotransferase 22 U/L (6-50); Albumin Level 3.4 g/dL (3.5-5.1); Alkaline Phosphatase 78 U/L (38-126); Anion Gap 6 mmol/L (4-12); Aspartate Amino Transferase 35 U/L (17-59); Bilirubin,Total 0.8 mg/dL (0.2-1.3); Blood Urea Nitrogen 21 mg/dL (9-20); Calcium 8.8 mg/dL (8.4-10.2); Carbon Dioxide 31 mmol/L (22-30); Chloride 102 mmol/L (98-107); Estimated CRCL calculation 56 ml/min; Estimated Glomerular Filt Rate > 60; Glucose 117 mg/dL (65-110); Magnesium 2.3 mg/dL (1.6-2.3); Potassium 4.0 mmol/L (3.4-5.0); Sodium 139 mmol/L (137-145); Total Protein 6.4 g/dL (6.3-8.2)
[2025-01-05] MEDS: FLUTICASONE/UMECLIDIN/VILANTER 100-62.5-25 MCG ELLIPTA 1 PUFF INHALATION (08:17)
[2025-01-05] MEDS: APIXABAN 5 MG TABLET PO (08:22)
[2025-01-05] MEDS: AZITHROMYCIN 250 MG TABLET PO (08:24)
[2025-01-05] MEDS: ATORVASTATIN 20 MG TABLET BY MOUTH (08:24)
[2025-01-05] MEDS: ASCORBIC ACID 500 MG TABLET 1000 MG PO (08:25)
[2025-01-05] MEDS: FINASTERIDE 5 MG TABLET PO (08:25)
[2025-01-05] MEDS: SENNA/DOCUSATE SODIUM TABLET 2 TAB PO (08:25)
[2025-01-05] MEDS: METOPROLOL TARTRATE 12.5 MG TABLET 37.5 MG PO (08:25)
[2025-01-05] MEDS: NICOTINE (*PBKC) 14 MG PATCH 1 PATCH TRANSDERM (09:00)
--- NOTE | 2025-01-05 12:36 | P.DS_ITS ---
DS: Admitting Diagnosis Discharge Date 01/05/2025 Admitting Diagnosis left hip fracture DS: Discharge Diagnosis Discharge Diagnosis (1) Atrial fibrillation: Code(s): I48.91 - Unspecified atrial fibrillation Status: Acute (2) Adult hypothyroidism: Code(s): E03.9 - Hypothyroidism, unspecified Status: Acute (3) Closed fracture of neck of left femur: Qualifiers: Encounter type: initial encounter Qualified Code(s): S72.002A - Fracture of unspecified part of neck of left femur, initial encounter for closed fracture Code(s): S72.002A - Fracture of unspecified part of neck of left femur, initial encounter for closed fracture Status: Acute (4) Acute hypoxic respiratory failure: Code(s): J96.01 - Acute respiratory failure with hypoxia Status: Acute DS: Summary Hospital Course Hospital Course: 79-year-old male with past medical history of AFib on chronic anticoagulation, COPD, presented with ongoing left hip pain, was found to have left hip fracture, along with hypoxia. #. Left femoral neck fracture: Appreciate orthopedics consult Pain control Status post left hip hemiarthroplasty PT/OT as tolerated as per protocol Oxycodone p.r.n. for pain control # Acute hypoxic respiratory failure: Blood gas on admission suggestive of hypoxia Continue with O2 support Continue with Maxine Echo with EF of 70%, grade 1 diastolic dysfunction Please give another trial of Lasix Continue with Thiago Suarez Patient follows up with deployment specialist in [place] Might need O2 support upon discharge/6 minute walk prior to discharge Influenza, RSV, COVID were negative Wean oxygen as tolerated Chest x-ray with early bilateral pneumonia. Add azithromycin and completes 01/06/2025 Off oxygen Now #. Leukocytosis: Leukocytosis worse today, likely in setting of surgery Blood culture negative till date UA unremarkable on admission # History of atrial fibrillation: Increase metoprolol to 37.5 mg p.o. b.i.d. Continue with Lovenox Will switch to oral agent when okay with Orthopedics(takes 5 mg of Eliquis b.i.d. at home) # History of hypothyroidism: Continue with home dose levothyroxine # Code status: Full # DVT prophylaxis: Lovenox # Disposition: PT OT evaluation likely needs placement. insert was authorization approved and will be going to swing bed at [facility]. Report called to the accepting physician Time Spent with Patient Time attestation: Total time spent providing and/or coordinating discharge services: 45 minutes Exam Narrative: Gen -no acute distress, on O2 support, 2 L Chest -few bibasilar crackles, decreased breath sounds CV -normal sinus rhythm Abd - Soft, NT/ND, Positive BS Ext -dressing present over left hip which is clean dry and intact Neuro -alert and oriented Psych - pleasant and cooperative. Skin - Warm and dry DS: Data Data Completed and Pending Labs on day of discharge: Labs from last 24 hours 01/05/25 01/05/25 01/05/25 11:54 07:43 06:45 WBC 8.9 RBC 4.14 L Hgb 12.6 L Hct 38.7 L MCV 93.5 MCH 30.4 MCHC 32.6 RDW 14.1 Plt Count 295 MPV 10.8 H Immature Gran % (Auto) 0.3 Neut % (Auto) 71.6 Lymph % (Auto) 12.2 L Clinton % (Auto) 10.9 H Eos % (Auto) 3.9 Baso % (Auto) 1.1 Lymph # (Auto) 1.09 Clinton # (Auto) 1.0 H Eos # (Auto) 0.4 H Baso # (Auto) 0.1 Abs Immat Gran (auto) 0.03 Absolute Neuts (auto) 6.4 Absolute Nucleated RBC 0.000 Nucleated RBC % 0.0 Sodium 139 Potassium 4.0 Chloride 102 Carbon Dioxide 31 H Anion Gap 6 BUN 21 H Creatinine 0.88 Estim Creat Clear Calc 56 Estimated GFR > 60 Glucose 117 H POC Capillary Glucose 110 H 117 H Calcium 8.8 Magnesium 2.3 Total Bilirubin 0.8 AST 35 ALT 22 Alkaline Phosphatase 78 Total Protein 6.4 Albumin 3.4 L 01/04/25 01/04/25 19:37 16:46 WBC RBC Hgb Hct MCV MCH MCHC RDW Plt Count MPV Immature Gran % (Auto) Neut % (Auto) Lymph % (Auto) Clinton % (Auto) Eos % (Auto) Baso % (Auto) Lymph # (Auto) Clinton # (Auto) Eos # (Auto) Baso # (Auto) Abs Immat Gran (auto) Absolute Neuts (auto) Absolute Nucleated RBC Nucleated RBC % Sodium Potassium Chloride Carbon Dioxide Anion Gap BUN Creatinine Estim Creat Clear Calc Estimated GFR Glucose POC Capillary Glucose 183 H 122 H Calcium Magnesium Total Bilirubin AST ALT Alkaline Phosphatase Total Protein Albumin Procedures/Treatments: Procedure Note - Detailed Date of Procedure 12/31/24 Pre-op Diagnosis left femoral neck fracture Post-op Diagnosis Same Procedure Performed Left hip Hemiarthroplasty Surgeon Nathan Horne MD Anesthesia General Indications 79 yr old male s/p fall at home with a displaced left hip femoral neck fracture. Findings Left hip femoral neck fracture Description of Procedure The patient was interviewed in the holding area prior to the surgery. At this time, a focused physical exam was performed. Confirmation with the patient and all family members present regarding the planned procedure. The correct site of surgery was then marked with an indelible marker with all parties acknowledging the correct site of surgery and confirming their understanding of the planned procedure. Once again, the risks benefits alternatives and complications were discussed with all present during the interview. They all agreed to proceed with the planned procedure. The patient was then taken to the Operating Room, placed in the supine position. General Anesthesia performed. Then the patient was placed in the lateral decubitus position with axillary roll, and a soft pad placed to protect the contra-lateral peroneal nerve. Peg board was used for positioning. - The Left Hip was prepped and draped in the standard sterile fashion. - TIME OUT performed prior to incision to verify correct patient, correct procedure, correct site of surgery and to verify the administration of IV Abx within 1 hr of incision time. - A posterior approach to the hip was performed. - Incision made with a knife. - dissection carried down to the level of the IT Band. - IT band sharply incised. - Charnley retractor placed. - Hip then internally rotated - Pyriformis Identified and tagged. - Short External Rotators identified and tagged. - Capsulotomy performed and capsule tagged - femoral neck fracture identified - femoral neck cut with a saw - femoral head removed with a cork screw and measured - box osteotome used to create opening into femoral canal with anatomic anteversion - manual reamer used to enter into the canal. - broached up to appropriate Size #6 - Trial was performed with 0 neck length and standard offset - Trial reduced and stability and limb length checked. - both were good. - final implant requested and inserted - stability and limb length again check - both were good. Irrigation of surgical site with pulsatile irrigation - Capsule and pyriformis repair to the posterior greater troch through 2 drill holes _ IT band closed in interrupted fashion Skin closed with vicryl suture then stapled and bandaged in a sterile fashion. Patient then transferred to recovery room. Implants Lincoln Accolade II Stem #6, Bipolar component 49mm, Standard Offset with 0 Neck length. Estimated Blood Loss 100 Urine Output 600 Drains No Packing No Pathology None sent Complications No immediate complications Condition Stable Disposition PACU Imaging Radiologist's impression: ITS Impressions Head CT 12/29/24 12:03 IMPRESSION: 1. No acute intracranial findings. Chest X-Ray 12/29/24 12:05 IMPRESSION: 1. No acute cardiopulmonary findings given portable technique. Foot X-Ray 12/29/24 12:05 IMPRESSION: 1. 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 No acute osseous abnormality. Knee X-Ray 12/29/24 12:08 IMPRESSION: 1. No left knee joint effusion or acute osseous abnormality. Hip/Pelvis X-Ray 12/29/24 12:28 Impression: Left femoral neck fracture Hip X-Ray 12/31/24 16:42 Impression: No acute fracture or malalignment. Chest X-Ray 01/01/25 09:10 Impression: Early bilateral pneumonia Discharge Plan Discharge Attending physician on discharge: Ramana Baugh Consulting providers: Nathan Horne Discharging Clinician: Ramana Baugh Anticipated Discharge Date/Time: 01/05/25 12:38 Patient Disposition: Hospital Swing Bed Activity: as tolerated Diet: heart healthy Patient Instructions: Antibiotic Form, Apixaban (By mouth) Patient Language: Azeri Stand Alone Forms: General Discharge Information Follow-up/Referrals: Cata,[place] Thomas NP [Primary Care Provider, Family Practice] - 1 Week Nathan Horne MD [Physician, Orthopedics] - 2 Weeks Discharge Medications: New oxycodone-acetaminophen 10-325 mg Tablet 1 tablet PO Q4H PRN (Reason: Pain Rated 7-10) Qty: 30 0RF polyethylene glycol 3350 [Miralax] 17 gram Powder In Packet 17 g PO QAM Qty: 30 0RF sennosides-docusate sodium [Senokot-S] 8.6-50 mg Tablet 2 tab PO BID Qty: 30 0RF azithromycin [Zithromax] 250 mg Tablet 250 mg PO DAILY Qty: 1 0RF Continued ascorbic acid (vitamin C) 1,000 mg tablet 1 g PO DAILY selenium 200 mcg tablet 200 mcg PO DAILY loratadine [Claritin] 10 mg PO DAILY levothyroxine 100 mcg tablet 100 mcg PO QAM Rx Instructions: Take 1 tablet by mouth once daily Eliquis 5 mg tablet 5 mg PO BID finasteride 5 mg tablet 5 mg PO DAILY Qty: 30 6RF albuterol sulfate 90 mcg/actuation HFA aerosol inhaler 2 puff inhalation PRN PRN (Reason: SOB) Rx Instructions: INHALE 2 PUFFS BY MOUTH EVERY 4 TO 6 HOURS NEEDED FOR SHORTNESS OF BREATH Trelegy Ellipta 100-62.5-25 mcg blister with device 1 inhalation INHALATION DAILY aspirin 81 mg tablet,delayed release (DR/EC) 81 mg PO DAILY atorvastatin 20 mg tablet See Rx Instructions .ROUTE .COMPLEX Qty: 90 2RF Dose Instruction: Take 1 tablet by mouth once daily Rx Instructions: Take 1 tablet by mouth once daily Changed metoprolol tartrate 25 mg tablet 37.5 mg PO BID Qty: 180 3RF Discontinued candesartan-hydrochlorothiazid 32-25 mg tablet 1 tablet PO DAILY Qty: 90 1RF Date of admission: 12/29/24 13:18 Primary Care Provider: Cata,[place] Thomas Admitting Provider: Naomie Fournier Attending physician on admission: Naomie Fournier Condition: Improved
--- NOTE | 2025-01-05 15:02 | PCRCNOTE ---
Patient has been discharged. Breathing treatment not given. Nurse aware
== END 2025-01-05 14:10 | disposition swing bed (61) | DRG 521 ==
LOC: ANHED 11:01 → ANH3MEDSUR 14:02
PROVIDERS: Internal Medicine; Orthopaedic Surgery; Admitting Provider Internal Medicine; Emergency Provider General Practice; PCP Nurse Practitioner Family; Visit Provider Internal Medicine
PROC: 0SRS01A Replacement of Left Hip Joint, Femoral Surface with Metal Synthetic Substitute, Uncemented, Open Approach (ICD-10-PCS; CPT 27125; principal; 2024-12-31 14:00)
DX: S72.002A Fracture of unspecified part of neck of left femur, initial encounter for closed fracture (principal); J18.9 Pneumonia, unspecified organism; J96.01 Acute respiratory failure with hypoxia; J95.89 Other postprocedural complications and disorders of respiratory system, not elsewhere classified; I10 Essential (primary) hypertension; I48.0 Paroxysmal atrial fibrillation; I25.10 Atherosclerotic heart disease of native coronary artery without angina pectoris; J44.9 Chronic obstructive pulmonary disease, unspecified; E03.9 Hypothyroidism, unspecified; E78.2 Mixed hyperlipidemia; G47.33 Obstructive sleep apnea (adult) (pediatric); F17.210 Nicotine dependence, cigarettes, uncomplicated; W19.XXXA Unspecified fall, initial encounter; Z20.822 Contact with and (suspected) exposure to COVID-19; Z85.51 Personal history of malignant neoplasm of bladder; I25.2 Old myocardial infarction; Z79.01 Long term (current) use of anticoagulants; Z79.82 Long term (current) use of aspirin
CPT/HCPCS: 36415; 36600; 70450; 71045; 73501; 73502; 73560; 73620; 80048; 80053; 81001; 82140; 82306; 82375; 82607; 82746; 82805; 82948; 83050; 83735; 83880; 84443; 84484; 85018; 85025; 85610; 85730; 86850; 86900; 86901; 87040; 87637; 93005; 94002; 94640; 96361; 96374; 96375; 97110; 97116; 97162; 97166; 97530; 97535; 99285; J0690; A9270; C1776; C8929; J1171; J1650; J1938; J2003; J2004; J2270; J2405; J2704; J3010; J3373; J3480; J7040; J7050; J7120; Q9957